=== PATIENT | female | born 1965 | race Caucasian/White ===

== ENCOUNTER 2016-08-22 08:56 | Inpatient (IN) | payer MEDICAID ==
[~2016-08-22 08:56] MED LIST: cefOXitin 2 GM Vial ONE
[2016-08-22] MEDS ORDERED: Scopolamine 1.5 MG Transdermal Patch TOP ONE (09:15)
[2016-08-22] MEDS ORDERED: Gabapentin 300 MG Cap PO ONE (09:15)
[2016-08-22] MEDS: fentaNYL 25 MCG/HR Transdermal Patch TRDERM SCH ×2 (09:24→09:26)
[2016-08-22] MEDS ORDERED: Naloxone 0.4 MG/ML SDV IV PRN (10:26)
[2016-08-22] MEDS: HYDROmorphone/Normal Saline 15 MG/30 ML PCA IV PRN (10:29)
[2016-08-22] MEDS: Dextrose 5%-Lactated Ringers 1,000 ML IV SCH (10:35)
[2016-08-22] MEDS ORDERED: Rocuronium 50 MG/5 ML Vial ONE ×2 (10:40→13:29)
[2016-08-22] MEDS ORDERED: Ondansetron 4 MG/2 ML SDV ONE (10:40)
[2016-08-22] MEDS ORDERED: Dexamethasone 4 MG/ML SDV ONE (10:40)
[2016-08-22] MEDS ORDERED: fentaNYL 250 MCG/5 ML SDV ONE ×2 (10:40→15:55)
[2016-08-22] MEDS ORDERED: Neostigmine Methylsulfate 1 MG/ML 5 ML Syringe ONE (10:40)
[2016-08-22] MEDS ORDERED: Propofol 200 MG/20 ML SDV ONE (10:40)
[2016-08-22] MEDS ORDERED: Ketamine 500 MG/5 ML MDV IV ONE (10:45)
[2016-08-22] MEDS ORDERED: cefOXitin 2 GM in Sodium Chloride 0.9% 50 ML IV ONE (11:00)
[2016-08-22] MEDS ORDERED: Albuterol/Ipratropium 3.0-0.5 MG/3 ML Neb Soln NEB ONE (11:00)
[2016-08-22] MEDS ORDERED: cefOXitin 1 GM Vial IRR ONE (11:15)
[2016-08-22] MEDS ORDERED: Lactated Ringers 1,000 ML ONE ×2 (13:19→15:30)
[2016-08-22] MEDS ORDERED: cefOXitin 1 GM Vial ONE (15:04)
[2016-08-22] MEDS ORDERED: cefOXitin 2 GM Vial ONE (15:06)
[2016-08-22] MEDS ORDERED: Sodium Chloride 0.9% 10 ML ONE (16:34)
[2016-08-22] MEDS ORDERED: Meropenem 500 MG SDV ONE (16:34)
[2016-08-22] MEDS ORDERED: fentaNYL 100 MCG/2 ML SDV ONE (17:16)
[2016-08-22] MEDS ORDERED: Ondansetron 4 MG/2 ML SDV IV PRN (19:51)
[2016-08-22] MEDS ORDERED: Albuterol/Ipratropium 3.0-0.5 MG/3 ML Neb Soln INH PRN (19:54)
[2016-08-22] MEDS: cefOXitin 2 GM in Sodium Chloride 0.9% 50 ML IV SCH (21:06)
[2016-08-22] MEDS: Pantoprazole 40 MG Vial IV SCH (21:07)
[2016-08-22] MEDS: Albuterol/Ipratropium 3.0-0.5 MG/3 ML Neb Soln INH SCH (21:07)
[2016-08-22] MEDS ORDERED: hydrOXYzine HCl 50 MG/ML SDV IM ONE (21:20)
[2016-08-22] MEDS: Acetaminophen 1,000 MG in Premix Bag 1 BAG IV SCH (21:32)
[2016-08-22] MEDS: Lactated Ringers 500 ML IV SCH (21:54)
[2016-08-23] MEDS: Dextrose 5%-Lactated Ringers 1,000 ML IV SCH ×3 (01:22→15:45)
[2016-08-23] MEDS: Lactated Ringers 500 ML IV SCH (01:23)
[2016-08-23] MEDS ORDERED: Lactated Ringers 500 ML IV SCH (01:30)
[2016-08-23] MEDS: cefOXitin 2 GM in Sodium Chloride 0.9% 50 ML IV SCH ×4 (02:34→20:00)
[2016-08-23] MEDS: Acetaminophen 1,000 MG in Premix Bag 1 BAG IV SCH ×3 (03:44→15:54)
[2016-08-23] MEDS: HYDROmorphone/Normal Saline 15 MG/30 ML PCA IV PRN ×2 (05:39→16:21)
[2016-08-23] MEDS: Albuterol/Ipratropium 3.0-0.5 MG/3 ML Neb Soln INH SCH ×4 (07:24→21:19)
[2016-08-23] MEDS: Formoterol/Mometasone 200-5 MCG 8.8 GM Inhaler IH SCH ×3 (08:17→21:19)
[2016-08-23] MEDS: Tiotropium Inhaler 18 MCG Inhalation Powder Cap Kit of 5 INH SCH (08:34)
[2016-08-23] MEDS: Metoprolol Tartrate 5 MG/5 ML SDV IV SCH ×3 (10:42→21:24)
[2016-08-23] MEDS ORDERED: Meperidine PF 100 MG/ML Syringe IM ONE (15:00)
[2016-08-23] MEDS ORDERED: diphenhydrAMINE 50 MG/ML SDV IVPUSH ONE (15:03)
[2016-08-23] MEDS: Pantoprazole 40 MG Vial IV SCH (20:01)
[2016-08-23] MEDS ORDERED: Lactated Ringers 500 ML IV ONE (20:30)
[2016-08-23] MEDS: VERIFY FENTANYL PATCH TOP SCH (21:18)
[2016-08-24] MEDS: cefOXitin 2 GM in Sodium Chloride 0.9% 50 ML IV SCH ×4 (02:13→20:55)
[2016-08-24] MEDS ORDERED: Lactated Ringers 500 ML IV SCH (02:30)
[2016-08-24] MEDS: Metoprolol Tartrate 5 MG/5 ML SDV IV SCH ×5 (03:39→22:46)
[2016-08-24] MEDS: Dextrose 5%-Lactated Ringers 1,000 ML IV SCH ×2 (04:04→18:02)
[2016-08-24] MEDS ORDERED: Meropenem 500 MG SDV ONE (05:36)
[2016-08-24] MEDS ORDERED: Bupivacaine 0.5% 50 ML MDV ONE (05:37)
[2016-08-24] MEDS ORDERED: Lidocaine 1% with EPINEPHrine 1:100,000 50 ML MDV ONE (05:37)
[2016-08-24] MEDS: HYDROmorphone/Normal Saline 15 MG/30 ML PCA IV PRN ×2 (07:13→16:46)
[2016-08-24] MEDS ORDERED: fentaNYL 100 MCG/2 ML SDV ONE (07:17)
[2016-08-24] MEDS ORDERED: Propofol 200 MG/20 ML SDV ONE (07:17)
[2016-08-24] MEDS ORDERED: Midazolam 1 MG/ML 2 ML SDV ONE (07:17)
[2016-08-24] MEDS: Formoterol/Mometasone 200-5 MCG 8.8 GM Inhaler IH SCH ×2 (09:36→20:54)
[2016-08-24] MEDS: Albuterol/Ipratropium 3.0-0.5 MG/3 ML Neb Soln INH SCH ×4 (09:36→20:56)
[2016-08-24] MEDS: Tiotropium Inhaler 18 MCG Inhalation Powder Cap Kit of 5 INH SCH (10:15)
[2016-08-24] MEDS: VERIFY FENTANYL PATCH TOP SCH ×2 (10:25→20:57)
[2016-08-24] MEDS: fentaNYL 50 MCG/HR Transdermal Patch TRDERM SCH (10:25)
[2016-08-24] MEDS: 1: AA 5%/Calcium/D15W/Lytes 1,000 ML with MVI, Adult with Vitamin K 10 ML, Chromium/Copp IV SCH ×6 (11:18→21:15)
[2016-08-24] MEDS ORDERED: Lactated Ringers 500 ML IV ONE (11:45)
[2016-08-24] MEDS: Pantoprazole 40 MG Vial IV SCH (20:50)
[2016-08-25] MEDS: cefOXitin 2 GM in Sodium Chloride 0.9% 50 ML IV SCH ×4 (02:05→19:55)
[2016-08-25] MEDS: Metoprolol Tartrate 5 MG/5 ML SDV IV SCH ×4 (03:34→22:42)
[2016-08-25] MEDS: 1: AA 5%/Calcium/D15W/Lytes 1,000 ML with MVI, Adult with Vitamin K 10 ML, Chromium/Copp IV SCH ×6 (07:26→17:55)
[2016-08-25] MEDS: Albuterol/Ipratropium 3.0-0.5 MG/3 ML Neb Soln INH SCH ×4 (07:38→21:11)
[2016-08-25] MEDS: Formoterol/Mometasone 200-5 MCG 8.8 GM Inhaler IH SCH ×2 (07:38→21:10)
[2016-08-25] MEDS: HYDROmorphone/Normal Saline 15 MG/30 ML PCA IV PRN ×2 (07:48→21:19)
[2016-08-25] MEDS ORDERED: fentaNYL 25 MCG/HR Transdermal Patch TRDERM SCH (09:00)
[2016-08-25] MEDS: Albumin 25% 12.5 GM in Premix Bag 1 BAG IV SCH ×4 (09:46→15:52)
[2016-08-25] MEDS: Potassium Phosphates 20 MMOLE in Sodium Chloride 0.9% 100 ML IV SCH ×3 (09:50→15:50)
[2016-08-25] MEDS: Tiotropium Inhaler 18 MCG Inhalation Powder Cap Kit of 5 INH SCH (09:52)
[2016-08-25] MEDS: VERIFY FENTANYL PATCH TOP SCH ×2 (09:58→21:11)
[2016-08-25] MEDS: Scopolamine 1.5 MG Transdermal Patch TOP SCH (10:03)
[2016-08-25] MEDS: Pantoprazole 40 MG Vial IV SCH (19:52)
[2016-08-26] MEDS: cefOXitin 2 GM in Sodium Chloride 0.9% 50 ML IV SCH ×4 (02:40→20:24)
[2016-08-26] MEDS: Metoprolol Tartrate 5 MG/5 ML SDV IV SCH ×4 (03:38→22:05)
[2016-08-26] MEDS: 1: AA 5%/Calcium/D15W/Lytes 1,000 ML with MVI, Adult with Vitamin K 10 ML, Chromium/Copp IV SCH ×6 (03:55→13:39)
[2016-08-26] MEDS: Albuterol/Ipratropium 3.0-0.5 MG/3 ML Neb Soln INH SCH ×4 (07:21→22:07)
[2016-08-26] MEDS: Formoterol/Mometasone 200-5 MCG 8.8 GM Inhaler IH SCH ×2 (07:22→22:07)
[2016-08-26] MEDS ORDERED: Iohexol 647 MG/ML 50 ML SDV PO PRN (07:27)
[2016-08-26] MEDS: Tiotropium Inhaler 18 MCG Inhalation Powder Cap Kit of 5 INH SCH (09:21)
[2016-08-26] MEDS: Albumin 25% 12.5 GM in Premix Bag 1 BAG IV SCH ×4 (09:25→16:26)
[2016-08-26] MEDS: VERIFY FENTANYL PATCH TOP SCH ×2 (09:26→22:03)
[2016-08-26] MEDS: VERIFY SCOPOLAMINE PATCH TOP SCH (09:27)
--- NOTE | 2016-08-26 09:48 | CR ---
UGI wo KUB HISTORY: Recent gastric bypass with partial gastrectomy and large Bezor in the stomach COMPARISON: CT scan 05/19/2016 FINDINGS: Upper GI demonstrates gastrojejunostomy anastomosis to be patent. No extravasation of cont rast. Slight esophageal dysmotility. Slight narrowing of the distal esophagus patient has had prior Kathe fundoplication.
--- NOTE | 2016-08-26 10:38 | PN ---
DATE OF SERVICE: 08/23/2016 The patient has been afebrile with stable vital signs, initially had relatively poor pain control, that appears to be satisfactory now. She is up in the chair, upright and conversant. The G-tube output was recorded as 0. We will need to probably flush that to have it not be plugged by the solid food that remains in there. Otherwise, her hemoglobin was 8.1 this morning, and we will give her 2 units of packed RBCs, as she is going to be having quite a bit in the way of blood draws and such. This will also decrease the amount of IV fluid we will need to give her. Magnesium is somewhat low as well, and that will be supplemented. Her other labs look quite good with the bilirubin and amylase being normal and AST only slightly elevated. The patient does have a bile leak in drains #1 and #2, and this would not be unexpected. The stent within the bile duct going through the jejunostomy is putting out some pure bile, so that anastomosis clearly is in a global sense intact. The other drain is serosanguineous at this point. The plan at this point will be to give her 2 units of packed RBCs today. We will begin some magnesium supplementation. We will plan to proceed with a delayed primary closure of abdominal incision tomorrow, along with Grant catheter insertion. The G-tube right now is not putting much out, and we will have that flushed periodically. The patient is normally on Inderal LA 120 mg a day, and after discussion with pharmacy, we will replace that with Lopressor 2.5 mg IV q.6 hours while she is not going to be getting a GI tract absorption. Skinny Keyes MD /[id number]
[2016-08-26] MEDS: Potassium Phosphates 15 MMOLE in Sodium Chloride 0.9% 100 ML IV SCH ×2 (10:54→12:27)
[2016-08-26] MEDS: HYDROmorphone/Normal Saline 15 MG/30 ML PCA IV PRN (11:41)
[2016-08-26] MEDS: Dextrose 5%-Lactated Ringers 1,000 ML IV SCH ×2 (14:00→22:08)
[2016-08-26] MEDS: Pantoprazole 40 MG Vial IV SCH (20:26)
[2016-08-27] MEDS: 1: AA 5%/Calcium/D15W/Lytes 1,000 ML with MVI, Adult with Vitamin K 10 ML, Chromium/Copp IV SCH ×9 (00:05→22:37)
[2016-08-27] MEDS: HYDROmorphone/Normal Saline 15 MG/30 ML PCA IV PRN ×2 (01:21→15:47)
[2016-08-27] MEDS: cefOXitin 2 GM in Sodium Chloride 0.9% 50 ML IV SCH ×4 (01:22→20:41)
[2016-08-27] MEDS: Metoprolol Tartrate 5 MG/5 ML SDV IV SCH ×4 (03:55→22:38)
[2016-08-27] MEDS: Albuterol/Ipratropium 3.0-0.5 MG/3 ML Neb Soln INH SCH ×4 (07:18→20:41)
[2016-08-27] MEDS: Formoterol/Mometasone 200-5 MCG 8.8 GM Inhaler IH SCH ×2 (07:18→20:42)
--- NOTE | 2016-08-27 07:26 | PN ---
DATE OF SERVICE: 08/25/2016 The patient had T-max 100.0. Vital signs have otherwise been stable. Temperature probably has something to do with the inflammatory response from the extensive procedure, perhaps as well as pulmonary toilet issues. Otherwise, urine output has now come up satisfactorily, and her creatinine is down to 0.9, so we will discontinue the Dumont catheter given this; otherwise, continue the TPN. She is doing a somewhat repeating pattern on the labs with the potassium and phosphate being low, and we will give her 60 mEq of K-Phosphate. Otherwise, continue the present TPN. Her albumin is also now quite low at 1.5. We will begin albumin 50 grams daily for the next 4 days. We will obtain an upper GI x-ray with water-soluble contrast tomorrow morning to evaluate gastric emptying out of the gastrojejunostomy. If that is emptying satisfactorily, we could probably start some oral intake tomorrow as well. Skinny Keyes MD /[id number]
[2016-08-27] MEDS: Tiotropium Inhaler 18 MCG Inhalation Powder Cap Kit of 5 INH SCH (08:28)
--- NOTE | 2016-08-27 08:35 | PN ---
DATE OF SERVICE: 08/26/2016 The patient had a T-max of 100.3, and for the most part, temperature is running 99. Vital signs are otherwise stable, and she looks reasonably comfortable. The urine output has been quite high as she is probably entering somewhat of a diuretic phase. With that, her hemoglobin is around 8.8, which I think is primary fluid shifting. The TABITHA drains all look appropriate. We will spot check on the amylase level on TABITHA 3, although it does not look obviously like a pancreatic fistula at this point. Continue present TPN and give her some additional K-Phos today. We will type and cross tomorrow in case the hemoglobin does creep down and give her 1 unit of packed RBCs tomorrow, if the hemoglobin remains below 9. Otherwise, will do an upper GI x-ray this morning to determine the degree of gastric emptying. If the stomach is emptying reasonably well, we can probably begin clamping the tube and starting a full liquid diet. Skinny Keyes MD /[id number]
[2016-08-27] MEDS ORDERED: Potassium Chloride 40 MEQ in Premix Bag 1 BAG IV ONE (09:00)
[2016-08-27] MEDS: Albumin 25% 12.5 GM in Premix Bag 1 BAG IV SCH ×4 (09:28→18:18)
[2016-08-27] MEDS: VERIFY SCOPOLAMINE PATCH TOP SCH (10:03)
[2016-08-27] MEDS: VERIFY FENTANYL PATCH TOP SCH ×2 (10:03→20:43)
[2016-08-27] MEDS: fentaNYL 50 MCG/HR Transdermal Patch TRDERM SCH (10:11)
[2016-08-27] MEDS: Pantoprazole 40 MG Vial IV SCH (20:42)
[2016-08-28] MEDS: cefOXitin 2 GM in Sodium Chloride 0.9% 50 ML IV SCH ×4 (02:04→20:10)
[2016-08-28] MEDS: Metoprolol Tartrate 5 MG/5 ML SDV IV SCH ×4 (04:45→22:53)
[2016-08-28] MEDS: Albuterol/Ipratropium 3.0-0.5 MG/3 ML Neb Soln INH SCH ×4 (07:13→20:11)
[2016-08-28] MEDS: Formoterol/Mometasone 200-5 MCG 8.8 GM Inhaler IH SCH ×2 (07:15→20:10)
[2016-08-28] MEDS: HYDROmorphone/Normal Saline 15 MG/30 ML PCA IV PRN ×2 (07:29→17:17)
--- NOTE | 2016-08-28 08:08 | PN ---
DATE OF SERVICE: 08/27/2016 The patient's T-max of 99. Vital signs otherwise have been stable. Upper GI x-ray looked good yesterday with good emptying of the stomach. G-tube output is moderate at this point. Plan will be to begin some Ensure high protein orally today, along with continuation of full- liquid diet. We will clamp the G-tube for 3 hours and unclamp for 1 hour around the clock. I think, at this point, we can back down the TPN to 82 mL an hour. Her hemoglobin is 8.1 and will give her 1 unit of packed RBCs today. Her potassium is somewhat low and will give her some additional KCl IV as well. Recheck some labs, maximize activity, and work with pulmonary toilet. The TABITHA drains are as previously noted. Skinny Keyes MD /[id number]
[2016-08-28] MEDS: Tiotropium Inhaler 18 MCG Inhalation Powder Cap Kit of 5 INH SCH (09:02)
[2016-08-28] MEDS: Albumin 25% 12.5 GM in Premix Bag 1 BAG IV SCH ×4 (09:07→14:56)
[2016-08-28] MEDS: VERIFY FENTANYL PATCH TOP SCH ×2 (09:53→20:11)
[2016-08-28] MEDS: VERIFY SCOPOLAMINE PATCH TOP SCH (09:55)
[2016-08-28] MEDS: Scopolamine 1.5 MG Transdermal Patch TOP SCH (09:56)
[2016-08-28] MEDS: 1: AA 5%/Calcium/D15W/Lytes 1,000 ML with MVI, Adult with Vitamin K 10 ML, Chromium/Copp IV SCH ×3 (11:29)
[2016-08-28] MEDS: Dextrose 5%-Lactated Ringers 1,000 ML IV SCH (16:29)
[2016-08-28] MEDS: Pantoprazole 40 MG Vial IV SCH (20:10)
[2016-08-29] MEDS: 1: AA 5%/Calcium/D15W/Lytes 1,000 ML with MVI, Adult with Vitamin K 10 ML, Chromium/Copp IV SCH ×6 (00:35→13:38)
[2016-08-29] MEDS: cefOXitin 2 GM in Sodium Chloride 0.9% 50 ML IV SCH ×4 (01:17→21:03)
[2016-08-29] MEDS: HYDROmorphone/Normal Saline 15 MG/30 ML PCA IV PRN ×3 (04:41→23:31)
[2016-08-29] MEDS: Metoprolol Tartrate 5 MG/5 ML SDV IV SCH ×3 (04:46→17:24)
[2016-08-29] MEDS: Formoterol/Mometasone 200-5 MCG 8.8 GM Inhaler IH SCH ×2 (07:25→21:03)
[2016-08-29] MEDS: Albuterol/Ipratropium 3.0-0.5 MG/3 ML Neb Soln INH SCH ×4 (07:25→21:13)
[2016-08-29] MEDS: Tiotropium Inhaler 18 MCG Inhalation Powder Cap Kit of 5 INH SCH (08:47)
[2016-08-29] MEDS: VERIFY FENTANYL PATCH TOP SCH ×2 (10:07→21:04)
[2016-08-29] MEDS: VERIFY SCOPOLAMINE PATCH TOP SCH (10:07)
[2016-08-29] MEDS: hydrOXYzine HCl 50 MG/ML SDV IM PRN ×2 (15:25→21:13)
--- NOTE | 2016-08-29 15:26 | PN ---
DATE OF SERVICE: 08/28/2016 The patient's T-max is 100.0. Vital signs have otherwise been stable. Oral intake is around 450 mL of mostly water, and we will have her try ordering off of the full liquid diet menu to get a little bit more in the way of nutrition. Labs show hemoglobin up to 9.7, white count is 10.7. Billirubin is up a little bit at 1.3, as is alkaline phosphatase. We will need to make sure that there is adequate drainage through the biliary stent. This appears to still be happening. We will otherwise continue TPN and present pain management. Probably will try switching over to some oral pain medicine tomorrow. Skinny Keyes MD /[id number]
[2016-08-29] MEDS: Cyclobenzaprine 10 MG Tab PO PRN (16:31)
[2016-08-29] MEDS ORDERED: PROPRANOLOL 120 MG PO SCH (21:00)
[2016-08-29] MEDS: Pantoprazole 40 MG Vial IV SCH (21:03)
[2016-08-29] MEDS: Propranolol 60 MG Cap.ER PO SCH (21:04)
[2016-08-29] MEDS ORDERED: Sodium Chloride 0.9% 250 ML IV SCH (22:00)
[2016-08-29] MEDS: Piperacillin/Tazobactam 3.375 GM in Sodium Chloride 0.9% 50 ML IV SCH (22:36)
[2016-08-30] MEDS: cefOXitin 2 GM in Sodium Chloride 0.9% 50 ML IV SCH (01:08)
[2016-08-30] MEDS: Piperacillin/Tazobactam 3.375 GM in Sodium Chloride 0.9% 50 ML IV SCH (03:24)
[2016-08-30] MEDS: Cyclobenzaprine 10 MG Tab PO PRN ×2 (06:03→16:06)
[2016-08-30] MEDS: 1: AA 5%/Calcium/D15W/Lytes 1,000 ML with MVI, Adult with Vitamin K 10 ML, Chromium/Copp IV SCH ×6 (06:14→23:28)
[2016-08-30] MEDS: Albuterol/Ipratropium 3.0-0.5 MG/3 ML Neb Soln INH SCH ×4 (07:27→20:55)
[2016-08-30] MEDS: Formoterol/Mometasone 200-5 MCG 8.8 GM Inhaler IH SCH ×2 (07:27→20:55)
[2016-08-30] MEDS: VERIFY FENTANYL PATCH TOP SCH ×2 (08:32→20:56)
[2016-08-30] MEDS: VERIFY SCOPOLAMINE PATCH TOP SCH (08:33)
[2016-08-30] MEDS ORDERED: Acetaminophen 325 MG Tab PO PRN (09:08)
[2016-08-30] MEDS: Tiotropium Inhaler 18 MCG Inhalation Powder Cap Kit of 5 INH SCH (09:20)
[2016-08-30] MEDS: Piperacillin/Tazobactam/Dext 3.375 GM in Premix Bag 1 BAG IV SCH ×3 (09:26→21:06)
[2016-08-30] MEDS: Sodium Chloride 0.9% 1,000 ML IV SCH (09:26)
[2016-08-30] MEDS: fentaNYL 50 MCG/HR Transdermal Patch TRDERM SCH (11:26)
[2016-08-30] MEDS: HYDROmorphone/Normal Saline 15 MG/30 ML PCA IV PRN (15:06)
[2016-08-30] MEDS: Pantoprazole 40 MG Vial IV SCH (20:54)
[2016-08-30] MEDS: Propranolol 60 MG Cap.ER PO SCH (20:55)
[2016-08-31] MEDS: Piperacillin/Tazobactam/Dext 3.375 GM in Premix Bag 1 BAG IV SCH ×4 (04:02→22:03)
[2016-08-31] MEDS: ClonazePAM 0.5 MG Tab PO PRN (04:02)
[2016-08-31] MEDS: Cyclobenzaprine 10 MG Tab PO PRN ×2 (04:02→20:40)
[2016-08-31] MEDS: Albuterol/Ipratropium 3.0-0.5 MG/3 ML Neb Soln INH SCH ×4 (07:48→20:37)
[2016-08-31] MEDS: Formoterol/Mometasone 200-5 MCG 8.8 GM Inhaler IH SCH ×2 (07:48→20:38)
[2016-08-31] MEDS: Tiotropium Inhaler 18 MCG Inhalation Powder Cap Kit of 5 INH SCH (09:12)
[2016-08-31] MEDS: VERIFY FENTANYL PATCH TOP SCH ×2 (09:55→20:40)
[2016-08-31] MEDS: VERIFY SCOPOLAMINE PATCH TOP SCH (09:57)
[2016-08-31] MEDS: Acetaminophen/oxyCODONE 325-10 MG Tab PO PRN ×3 (09:58→20:40)
[2016-08-31] MEDS: Scopolamine 1.5 MG Transdermal Patch TOP SCH (10:26)
--- NOTE | 2016-08-31 12:42 | PN ---
DATE OF SERVICE: 08/29/2016 The patient has been afebrile with stable vital signs, somewhat eating at around 540 mL in. We will try a low-residue solid diet today, as it appears that her stomach is emptying fairly well. Back down on the TPN somewhat. Otherwise, check some labs once again tomorrow morning. Skinny Keyes MD /[id number]
--- NOTE | 2016-08-31 12:58 | PN ---
DATE OF SERVICE: 08/30/2016 The patient had T-max of 102, and she was cultured up with that. The patient looks fairly comfortable this morning and appear to have a fairly productive cough. I think the temperature probably is related to that. After cultures were obtained, we will start the patient on Zosyn, and we will await the cultures and fine tune the antibiotics as needed. Otherwise, the bilirubin is up to 1.8 within the TABITHA drain drainage and drainage through the biliary stent appeared to be remaining satisfactory. The bilirubin may be related to TPN with mL an hour. We will try to get her to take more oral intake today. We will discontinue the cefoxitin and continue to maximize activity and work with pulmonary toilet. Skinny Keyes MD /[id number]
[2016-08-31] MEDS: 1: AA 5%/Calcium/D15W/Lytes 1,000 ML with MVI, Adult with Vitamin K 10 ML, Chromium/Copp IV SCH ×3 (16:20)
[2016-08-31] MEDS: Pantoprazole 40 MG Vial IV SCH (20:37)
[2016-08-31] MEDS: Propranolol 60 MG Cap.ER PO SCH (20:38)
[2016-09-01] MEDS: Acetaminophen/oxyCODONE 325-10 MG Tab PO PRN ×5 (01:34→20:59)
[2016-09-01] MEDS: Sodium Chloride 0.9% 1,000 ML IV SCH (02:28)
[2016-09-01] MEDS: Piperacillin/Tazobactam/Dext 3.375 GM in Premix Bag 1 BAG IV SCH ×4 (03:06→21:03)
[2016-09-01] MEDS: Albuterol/Ipratropium 3.0-0.5 MG/3 ML Neb Soln INH SCH ×4 (07:21→21:01)
[2016-09-01] MEDS: Formoterol/Mometasone 200-5 MCG 8.8 GM Inhaler IH SCH ×2 (07:21→21:01)
[2016-09-01] MEDS: Tiotropium Inhaler 18 MCG Inhalation Powder Cap Kit of 5 INH SCH (08:02)
[2016-09-01] MEDS: VERIFY FENTANYL PATCH TOP SCH ×2 (09:58→21:02)
[2016-09-01] MEDS: VERIFY SCOPOLAMINE PATCH TOP SCH (09:59)
[2016-09-01] MEDS: Cyclobenzaprine 10 MG Tab PO PRN (20:59)
[2016-09-01] MEDS: Pantoprazole 40 MG Vial IV SCH (21:00)
[2016-09-01] MEDS: Propranolol 60 MG Cap.ER PO SCH (21:02)
[2016-09-02] MEDS: Acetaminophen/oxyCODONE 325-10 MG Tab PO PRN ×5 (01:29→19:56)
[2016-09-02] MEDS: Piperacillin/Tazobactam/Dext 3.375 GM in Premix Bag 1 BAG IV SCH ×4 (03:40→21:33)
[2016-09-02] MEDS: Albuterol/Ipratropium 3.0-0.5 MG/3 ML Neb Soln INH SCH ×4 (07:10→21:26)
[2016-09-02] MEDS: Formoterol/Mometasone 200-5 MCG 8.8 GM Inhaler IH SCH ×2 (07:13→21:27)
[2016-09-02] MEDS: Tiotropium Inhaler 18 MCG Inhalation Powder Cap Kit of 5 INH SCH (09:01)
[2016-09-02] MEDS: fentaNYL 50 MCG/HR Transdermal Patch TRDERM SCH (10:07)
[2016-09-02] MEDS: VERIFY FENTANYL PATCH TOP SCH ×2 (10:09→21:28)
[2016-09-02] MEDS: VERIFY SCOPOLAMINE PATCH TOP SCH (10:10)
--- NOTE | 2016-09-02 10:47 | CR ---
Two-view chest Comparison: June 2014. Findings: There is a left subclavian line in place. The tip descends down to the junction of the SVC and right atrium. There is focal density in the medial right lung base. The finding is consistent w ith atelectasis and/or infiltrate. The left lung is unremarkable. The heart and vascular structures are within normal limits. Impression: 1. Right basilar infiltrate and/or atelectasis. 2. Left central venous catheter.
--- NOTE | 2016-09-02 10:56 | PN ---
DATE OF SERVICE: 09/02/2016 SUBJECTIVE: Marah's vital signs have been stable. Her oral intake is 1140 mL. She states that she had so much pain prior to surgery that she is afraid to eat. TABITHA drains have put out 15, 15, and 370, respectively. Gastrostomy tube has been clamped. Bile duct drain have put out 125 of a darker colored drainage. She did have a bowel movement yesterday, 09/01/2016. OBJECTIVE: GENERAL: Marah is a 51-year-old female. She is alert and orientated. Color pale. VITAL SIGNS: TPR is 98, 70, 16, blood pressure 95/55. HEENT: Negative. NECK: Supple. HEART: Regular rate and rhythm. LUNGS: Clear. ABDOMEN: Dressings dry and intact. Abdominal binder is on. TABITHA drains, as stated above. EXTREMITIES: Without peripheral edema. ASSESSMENT: Laparoscopy turned to laparotomy with distal gastrectomy with Loc-en-Y gastrojejunostomy, debridement of segment of deserosalized pancreas, resection of portion with Loc-en-Y choledochojejunostomy and placement of gastrostomy tube on 08/22/2016. PLAN: 1. Dietary consult. 2. Calorie count 24 hours from 7 a.m. to 7 a.m. 3. Good pulmonary toilet encouraged. 4. We will evaluate p.r.n. or in a.m. Sharon Gamboa PA-C /[id number]
--- NOTE | 2016-09-02 11:27 | PN ---
DATE OF SERVICE: 09/01/2016 The patient has been now afebrile with stable vital signs. Oral intake has been fair, but still not much beyond water. Will have Dietary seeing the patient daily. TPN is off at this point and will need better oral intake in terms of quality. Her bilirubin is down to 1.0 today, and the cultures on the sputum show an Enterobacter, which is sensitive to Zosyn that she is on. Continue to maximize activity, work with pulmonary toilet, and recheck some labs in the morning. Skinny Keyes MD /[id number]
--- NOTE | 2016-09-02 12:00 | OR ---
DATE OF PROCEDURE: 08/24/2016 PREOPERATIVE DIAGNOSES: 1. Open abdominal incision. 2. Indications for central venous access. OPERATIVE PROCEDURE: 1. Delayed primary closure of abdominal incision. 2. Placement of double-lumen Grant catheter via left subclavian vein approach (52771). ANESTHESIA: Local plus IV sedation. INDICATION FOR PROCEDURE: The patient is status post very complex gastric and biliary procedure done 48 hours ago. At that time, the patient was felt to be at high risk for wound infection and primary closure was undertaken. Therefore, we had the wound pack opened with a planned delayed primary closure to be undertaken today. Additionally, the patient will likely need to have some TPN for the ensuing several days or possibly weeks, and given this, a double-lumen Grant catheter will be placed. Potential risks of the procedure including bleeding, infection, injury to the vasculature or lung during the catheter replacement were reviewed, and the patient wishes to proceed. DETAILS OF PROCEDURE: The patient was taken to the operating room and placed in a supine position. After IV sedation was administered, the upper chest and neck areas were prepped and draped. The left subclavian area was then anesthetized with 1% lidocaine, mixed with Marcaine, and the left subclavian vein cannulated. A guidewire was passed and manipulated into the superior vena cava. Some additional local was then injected for a length of roughly 4 fingerbreadths below the original puncture site. A stab wound was then placed at that level and a Grant catheter tunneled between the two puncture sites and then cut such that the tip would lie in the area of the superior vena cava/right atrial junction. Over the introducer and peel-away catheter, the Grant catheter was then placed without difficulty. Good in and outflow was noted. Ports were flushed with heparinized saline. The original puncture site incision was closed with a 4-0 Vicryl subcuticular stitch and the catheter sutured to the skin with the cuff having been pulled just inside the skin and thereby affixed with some 3-0 nylon stitch. Dressing was then applied, and port once again flushed with heparinized saline. Attention was then taken to the open abdominal incision. Previous incision was opened up with removal of the dressing. The incision was inspected and found to be clean. The incision was prepped and draped, anesthetized with 1% lidocaine mixed with Marcaine, and irrigated with meropenem-containing saline solution. A 10-Persian round Yang-Jackson drain was placed near the inferior aspect of the incision, and the incision was then closed with 2 layers of 3-0 and 4-0 Vicryl stitch deep and lane for the skin. The drain was affixed with some 3-0 Vicryl stitch, and the patient was taken to the recovery room in satisfactory condition. There were no evident complications. Skinny Keyes MD /[id number]
[2016-09-02] MEDS: Sodium Chloride 0.9% 10 ML Syringe IV PRN (16:48)
[2016-09-02] MEDS: ClonazePAM 0.5 MG Tab PO PRN (19:56)
[2016-09-02] MEDS: Cyclobenzaprine 10 MG Tab PO PRN (19:56)
[2016-09-02] MEDS: Propranolol 60 MG Cap.ER PO SCH (21:29)
[2016-09-02] MEDS: Pantoprazole 40 MG Tab.CR PO SCH (21:29)
[2016-09-03] MEDS: Acetaminophen/oxyCODONE 325-10 MG Tab PO PRN ×4 (01:51→20:33)
[2016-09-03] MEDS: Piperacillin/Tazobactam/Dext 3.375 GM in Premix Bag 1 BAG IV SCH ×4 (04:28→21:24)
[2016-09-03] MEDS: Albuterol/Ipratropium 3.0-0.5 MG/3 ML Neb Soln INH SCH ×4 (07:12→20:35)
[2016-09-03] MEDS: Formoterol/Mometasone 200-5 MCG 8.8 GM Inhaler IH SCH ×2 (07:13→20:38)
[2016-09-03] MEDS: Scopolamine 1.5 MG Transdermal Patch TOP SCH (08:36)
[2016-09-03] MEDS: VERIFY SCOPOLAMINE PATCH TOP SCH (08:40)
[2016-09-03] MEDS: VERIFY FENTANYL PATCH TOP SCH ×2 (08:41→20:47)
[2016-09-03] MEDS: Tiotropium Inhaler 18 MCG Inhalation Powder Cap Kit of 5 INH SCH (09:07)
[2016-09-03] MEDS: 1: AA 5%/Calcium/D15W/Lytes 1,000 ML with MVI, Adult with Vitamin K 10 ML, Chromium/Copp IV SCH ×3 (10:56)
[2016-09-03] MEDS: Dronabinol 2.5 MG Cap PO SCH ×2 (10:56→20:41)
[2016-09-03] MEDS: Fat Emulsion 100 ML IV SCH (15:38)
[2016-09-03] MEDS: Cyclobenzaprine 10 MG Tab PO PRN ×2 (16:00→22:40)
[2016-09-03] MEDS: ClonazePAM 0.5 MG Tab PO PRN (20:34)
[2016-09-03] MEDS: Propranolol 60 MG Cap.ER PO SCH (20:38)
[2016-09-03] MEDS: Pantoprazole 40 MG Tab.CR PO SCH (20:47)
[2016-09-04] MEDS: Acetaminophen/oxyCODONE 325-10 MG Tab PO PRN ×3 (01:59→19:40)
[2016-09-04] MEDS: Piperacillin/Tazobactam/Dext 3.375 GM in Premix Bag 1 BAG IV SCH ×4 (04:18→21:43)
[2016-09-04] MEDS: 1: AA 5%/Calcium/D15W/Lytes 1,000 ML with MVI, Adult with Vitamin K 10 ML, Chromium/Copp IV SCH ×3 (04:19)
[2016-09-04] MEDS: Albuterol/Ipratropium 3.0-0.5 MG/3 ML Neb Soln INH SCH ×4 (07:21→21:47)
[2016-09-04] MEDS: Formoterol/Mometasone 200-5 MCG 8.8 GM Inhaler IH SCH ×2 (07:21→21:47)
[2016-09-04] MEDS ORDERED: Central Total Parenteral Nutrition Bag SCH (07:30)
[2016-09-04] MEDS: Tiotropium Inhaler 18 MCG Inhalation Powder Cap Kit of 5 INH SCH (08:00)
--- NOTE | 2016-09-04 08:29 | OR ---
DATE OF PROCEDURE: 08/22/2016 PREOPERATIVE DIAGNOSIS: High-grade partial gastric outlet obstruction secondary to non- dilatable duodenal ulcer. POSTOPERATIVE DIAGNOSIS: 1. High-grade partial gastric outlet obstruction associated with:. a. Striking gastric distention with both solids and liquids. b. 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 OPERATIVE PROCEDURE: 1. Diagnostic laparoscopy converted to laparotomy with:. a. Distal gastrectomy with Loc-en-Y gastrojejunostomy (03603). b. Debridement of portion of the devitalized pancreas (51958). c. Resection of portion of common bile duct with Loc-en-Y choledochojejunostomy (78298). d. Placement of tube gastrostomy (97843). ANESTHESIA: General. INDICATION FOR PROCEDURE: This is a 51-year-old who for several months has been just being on more or less a liquid diet. She has been worked up by mainly Gastroenterology. An attempt had been made at dilating the duodenal ulcer which was unsuccessful. At this point, she presents with planned distal gastrectomy with Loc-en-Y reconstruction to alleviate the gastric outlet obstruction. Potential risks of the procedure including bleeding, infection, injury to the structures in the vicinity of the ulcer including pancreas and biliary structures, possible leaks from various GI tract closures, as well as possibility of cardiopulmonary, septic, or hemorrhagic complications leading to were discussed, and the patient wishes to proceed. DETAILS OF PROCEDURE: The patient was taken to the operating room. After general endotracheal anesthesia was induced, the patient was placed in a lithotomy position and the abdomen was prepped and draped. A nasogastric tube had been placed, but this had very little output as it became evidently quite plugged with semisolid material soon after insertion. A 20 cm inferior and 5 cm left of the xiphoid process, a transverse incision was made. The peritoneal cavity entered under direct vision with an Optiview trocar. Following this, the peritoneal cavity was inflated to 15 mmHg pressure with CO2, and the laparoscope reinserted. No underlying trocar insertion site injuries were seen. Following this, 5 additional trocars were placed across the upper and mid abdomen, and general exploration was undertaken. As somewhat expected, the patient was noted to have a strikingly dilated stomach. This came down in a U-shaped type configuration, almost to a point somewhat below the umbilicus before curving back up toward the duodenum. At this point, the greater omentum was divided from the junction of the right and left gastroepiploic vessels down toward the pyloric sphincter and duodenum with Harmonic scalpel. Similarly, then the lesser omental structures were then divided from the point fairly high up on the lesser curvature, a few centimeters below the esophagogastric junction. Care was taken to maintain a plane of dissection here, directly along the side of the stomach to maintain the left gastric vasculature to the upper portion of the stomach that would remain. This was then likewise taken down toward the pyloric sphincter. The stomach was then divided with LUIS FERNANDO black loads as it was quite thick and more or less connecting to the proximal ends of the lesser omental points of dissection, some of the other GI tissue behind the stomach was then taken down with Harmonic scalpel. As one approached the area of the proximal duodenum, it became evident that there was a florid both acute and chronic inflammatory response in the area of the head of the pancreas, which made a laparoscopic approach from that point not felt to be safe. Given this, the trocars were removed, the peritoneal cavity was deflated, and an upper midline incision was made and carried down through the full-thickness of the abdominal wall. Attention was then taken to dissection into the area of the proximal duodenum. This had evidently been involved in a longstanding posterior penetration of the ulcer into the head of the pancreas resulting in a dense inflammatory response all around that area. As one dissected free, the pancreas was densely adherent and some of this was devitalized as the wound further dissected the doing away from the plane was attempted to be maintained along the posterior aspect of the duodenum. Additional pancreatic tissue was densely adherent and came up with the dissection, and at that point, it was also noted that the common bile duct in the immediate supraduodenal location had been caught up in the inflammatory response and was divided roughly 80% of its diameter. At that point, the decision was then made to complete that transection and reconstruct the biliary tract with the Loc-en-Y choledochojejunostomy. The remainder of the duodenal ulcer was then peeled off the pancreas. There was some remaining devitalized pancreatic tissue which was then excised. It was clear, however, that the plane of dissection did not involve the main pancreatic duct. Beyond the first portion of the duodenum, it became relatively soft and the duodenum was then divided there with a LUIS FERNANDO black load as well and the specimen delivered from the field. At this point, the ligament of Treitz was identified and the small bowel taken down 20 cm distal to that point where it was initially divided, and then initially a 70 cm Loc limb was then constructed for the jejunostomy, and then a separate 70 cm Loc-en-Y limb constructed for the gastrojejunostomy. Both of these were implanted into the small bowel in the range of roughly 20 cm distal to the ligament of Treitz. All of this was done with stapled anastomoses using standard technique. The Loc limb of the small bowel to be used for the choledochojejunostomy was then brought out through an antecolic position. This seemed to be really the most satisfactory in terms of bringing out the cutaneous stent through the choledochojejunostomy via the Loc limb. At this point, a 10-Albanian round Yang-Jackson drain was used to provide the stent for the choledochojejunostomy as the common bile duct was actually quite small in diameter. The common bile was debrided roughly 2 cm further approximately where it was most satisfactory in terms of appearance for the anastomosis. A Witzel jejunostomy was then accomplished in the Loc limb roughly 15 cm distal to the point where the choledochojejunostomy would be placed. A 10-Albanian round drain was then left in and then separately brought out through the end of the Loc limb for subsequent placement of the stent. The Witzel jejunostomy was initially then sutured to the substance of the bowel just as it exited the Witzel tunnel with a 3-0 chromic stitch, so that it would not slide out of position during the remainder of the case. Attention was then taken to the formation of the choledochojejunostomy. A small opening was made in the small bowel on its antimesenteric border, roughly 2 or 3 cm proximal to the divided end of the small bowel, and initially, the anterior row of sutures using 4-0 Vicryl stitch was placed in the common bile duct. Following this, then the posterior row of sutures beginning on the corners with 4-0 Vicryl was made between the common bile duct and the jejunum. Once these were in place and tied, the stent was then cut such that it would extend into the common bile duct, roughly about 4 cm and slid into the common bile duct at that level. Initially, we placed anterior long stitches to the common bile duct. We then were taken to the adjacent jejunum, all of the bites of the common bile duct and jejunum including the mucosal surfaces. Once this was completed, that anastomosis appeared to be satisfactory. Some additional sutures to the small bowel to the adjacent soft tissues were then also placed to help take any tension off the direct suture line of the choledochojejunostomy. The end of the small bowel as it exited the jejunum was then brought out through a stab wound along the right upper quadrant, anterior and lateral abdominal wall, and the small bowel was then attached to the abdominal wall with a series of 4 sutures placed around the exit site of the stent to the abdominal wall, thus fixing in position, and subsequently, this along with the Yang-Jackson drains was sutured at the skin level with a 3-0 Vicryl stitch. Attention was then taken to the gastrojejunostomy. The Loc limb for this was brought out through a retrocolic approach and came up easily through the divided end of the stomach. Along the posterior aspect of the stomach, a small opening was made and attempt was made to remove the large volume of semisolid material. This was old food with roughly a consistency of oatmeal with foul-smelling, obviously been present there for an extended period of time. Using the Jing tube and then subsequently a 40-Albanian chest tube, some of this was removed, but we were not able to get the vast majority of this out. It was felt that it was a satisfactory large enough opening for the anastomosis this would drain and would be a safer approach than trying to get all this material out, which would likely result in substantial additional contamination of the abdominal wall. The Loc limb was then brought up to the posterior opening and laid across in the right to left direction and 2 firings of the LUIS FERNANDO purple loads between the stomach and small bowel were then accomplished, and the corner of the common opening was then closed with a LUIS FERNANDO black load. The angles of anastomosis were then reinforced with 3-0 Vicryl seromuscular stitch. The remaining stomach was obviously quite distended and poorly functional and given this, a 20-Albanian Dumont catheter was brought through the abdominal wall in the left subcostal area and a gastrostomy tube, using a Wanda technique was used with a 3-0 Vicryl stitch. Once this was general in place it was sutured up against the abdominal wall with 3-0 Vicryl stitch as well. At this point, no further problems were noted intra-abdominally. The abdomen was irrigated with meropenem-containing saline solution. Three Yang-Jackson drains were then placed, 1 and 2 were then placed initially posterior to the choledochojejunostomy and from there into the dependent portion of the abdomen below that along the lower edge of the liver and the TABITHA #2 was then placed anterior to the choledochojejunostomy and then also across the area of the duodenal stump and Yang-Jackson #3 was then laid across the area of pancreatic debridement in the event that pancreatic fistula would develop at that location. The gastrojejunostomy, duodenal stump, pancreatic debridement, and choledochojejunostomy were then all reinforced with multiple syringes of fibrin sealant. At that point, no further problems were noted. The midline fascia was approximated with a #2 Vicryl stitch. All of the trocar sites had been placed obliquely through the musculature and that needed to be closed as a palpable good muscle covering the points where they entered the abdomen. The skin and subcutaneous tissue were felt to be at high risk for a wound infection if primary closure was undertaken. Given this, a delayed primary closure was planned in 48 hours, and the skin and subcutaneous tissue packed open with iodoform gauze. The drains and the stent for the choledochojejunostomy were all sutured to the skin with some 3-0 Vicryl stitch and the gastrostomy tube was sutured to the skin with 3-0 nylon stitch. The patient was taken to the recovery room in satisfactory condition. There were no evident complications. Skinny Keyes MD /[id number]
--- NOTE | 2016-09-04 09:03 | PN ---
DATE OF SERVICE: 09/04/2016 SUBJECTIVE: Marah's vital signs have been stable. She has been afebrile. Oral intake was 1180 and her TABITHA drains have put out 2, 2, 445 of a light green-tinged draining. Her gastrostomy tube is clamped, and the bile duct drain has put out 10. She has a decreased appetite, was started on Marinol yesterday. Pain has been an issue. TPN is running at 60 and she is getting lipids daily. Labs were reviewed. Hemoglobin 10.2. Alkaline phosphatase is elevated at 855. REVIEW OF SYSTEMS: Remainder of review of systems negative for any pertinent positives and negatives. OBJECTIVE: GENERAL: Marah is a 51-year-old female. She is sitting up in the chair. Alert, orientated, color pale. SKIN: Warm and dry. VITAL SIGNS: TPR 97.3, 77, 16. Blood pressure 90/54. HEENT: Negative. NECK: Supple. HEART: Regular rate and rhythm. LUNGS: Clear. ABDOMEN: Incisions look good. Drains were examined. Gastrostomy tube in place. She has had the abdominal binders on. EXTREMITIES: Without peripheral edema. ASSESSMENT: Laparoscopic turned to laparotomy with distal gastrectomy with Loc-en-Y gastrojejunostomy, debridement of segment of deserosalized pancreas, resection of portion of Loc-en-Y, choledochojejunostomy and placement of gastrostomy tube on 08/22/2016. PLAN: 1. Increase Marinol to 5 mg b.i.d. 2. Continue same TPN, rate, and content. 3. Continue lipids. 4. Discontinue Flexeril. 5. Check CBC, CMP, Mag, phos in a.m. 6. Good pulmonary toilet encouraged. 7. Continue to encourage oral intake. 8. We will evaluate p.r.n. or in a.m. Sharon Gamboa PA-C /[id number]
[2016-09-04] MEDS: Dronabinol 2.5 MG Cap PO SCH ×2 (09:31→21:48)
[2016-09-04] MEDS: VERIFY FENTANYL PATCH TOP SCH ×2 (09:32→21:49)
[2016-09-04] MEDS: VERIFY SCOPOLAMINE PATCH TOP SCH (09:33)
[2016-09-04] MEDS: Fat Emulsion 100 ML IV SCH (16:31)
--- NOTE | 2016-09-04 18:32 | PN ---
DATE OF SERVICE: 09/03/2016 The patient has been afebrile with stable vital signs. Oral intake remains fairly poor in terms of her calories and we will restart Marinol and have her take frequent small meals. If she is able to pickup adequate nutrition over the next day or two, we can try some nighttime tube feedings as well. Skinny Keyes MD /[id number]
[2016-09-04] MEDS ORDERED: 1: AA 5%/Calcium/D15W/Lytes 1,000 ML with MVI, Adult with Vitamin K 10 ML, Chromium/Copp IV SCH ×3 (21:00)
[2016-09-04] MEDS: Propranolol 60 MG Cap.ER PO SCH (21:47)
[2016-09-04] MEDS: Pantoprazole 40 MG Tab.CR PO SCH (21:50)
[2016-09-05] MEDS: Acetaminophen/oxyCODONE 325-10 MG Tab PO PRN ×6 (00:06→22:51)
[2016-09-05] MEDS: Piperacillin/Tazobactam/Dext 3.375 GM in Premix Bag 1 BAG IV SCH ×4 (03:30→22:31)
[2016-09-05] MEDS ORDERED: Calcium Carbonate 500 MG Tab.Chew PO PRN (04:13)
[2016-09-05] MEDS: Albuterol/Ipratropium 3.0-0.5 MG/3 ML Neb Soln INH SCH ×4 (07:13→20:29)
[2016-09-05] MEDS: Formoterol/Mometasone 200-5 MCG 8.8 GM Inhaler IH SCH ×2 (07:14→20:23)
[2016-09-05] MEDS ORDERED: Central Total Parenteral Nutrition Bag SCH (07:30)
[2016-09-05] MEDS: Tiotropium Inhaler 18 MCG Inhalation Powder Cap Kit of 5 INH SCH (08:43)
[2016-09-05] MEDS ORDERED: Potassium Chloride 20 MEQ in Premix Bag 1 BAG IV ONE (09:00)
[2016-09-05] MEDS: VERIFY SCOPOLAMINE PATCH TOP SCH (09:01)
[2016-09-05] MEDS: VERIFY FENTANYL PATCH TOP SCH ×2 (09:01→20:25)
[2016-09-05] MEDS: Dronabinol 2.5 MG Cap PO SCH ×2 (09:09→20:29)
[2016-09-05] MEDS: fentaNYL 50 MCG/HR Transdermal Patch TRDERM SCH (09:09)
--- NOTE | 2016-09-05 10:06 | PN ---
DATE OF SERVICE: 09/05/2016 SUBJECTIVE: Marah is reporting pain on the pain scale of 1 to 10 at 5 to 9. Oral intake was 1790. Her TABITHA drain 1 and 2 put out 2 mL each. TABITHA 3 put out 445. TABITHA 4 which is a bio drainage bag put out 10. Her oral intake has increased to 1790 yesterday. She has had no other questions or concerns. OBJECTIVE: GENERAL: Marah is a 51-year-old female. She is alert and orientated. Color pale. She looks like she is feeling better today. VITAL SIGNS: TPR is 97, 65, 18. Blood pressure is 96/63. HEENT: Negative. NECK: Supple. HEART: Regular rate and rhythm. LUNGS: Clear. ABDOMEN: Incisions look good. TABITHA drains noted as above. EXTREMITIES: Without peripheral edema. ASSESSMENT: Laparoscopic turned to laparotomy with distal gastrectomy with Loc-en-Y gastrojejunostomy, debridement of segment of deserosalized pancreas, resection of portion of the Loc-en-Y, choledochojejunostomy, and placement of gastrostomy tube on 08/22/2016. PLAN: 1. Decrease TPN and lipids to 40 mL/h. Use same content. 2. Have sutures and lidocaine at bedside for placement of suture to keep the bile TABITHA drain intact and this should be at bedside for Skinny Keyes MD, on Friday09/06/2016. 3. Potassium chloride 20 mEq IV one time today. 4. Check CBC, CMP, Mag, phos in a.m. 5. Good pulmonary toilet encouraged. 6. We will evaluate p.r.n. or in a.m. Sharon Gamboa PA-C /[id number]
[2016-09-05] MEDS: Fat Emulsion 100 ML IV SCH (16:19)
[2016-09-05] MEDS: 1: AA 5%/Calcium/D15W/Lytes 1,000 ML with MVI, Adult with Vitamin K 10 ML, Chromium/Copp IV SCH ×3 (17:00)
[2016-09-05] MEDS: Pantoprazole 40 MG Tab.CR PO SCH (20:24)
[2016-09-05] MEDS: Propranolol 60 MG Cap.ER PO SCH (20:24)
[2016-09-06] MEDS: Acetaminophen/oxyCODONE 325-10 MG Tab PO PRN ×5 (03:48→22:04)
[2016-09-06] MEDS: Piperacillin/Tazobactam/Dext 3.375 GM in Premix Bag 1 BAG IV SCH ×2 (03:48→09:11)
[2016-09-06] MEDS ORDERED: Lidocaine 1% 50 ML MDV INJECT ONE (06:30)
[2016-09-06] MEDS: Albuterol/Ipratropium 3.0-0.5 MG/3 ML Neb Soln INH SCH ×4 (07:24→20:38)
[2016-09-06] MEDS: Formoterol/Mometasone 200-5 MCG 8.8 GM Inhaler IH SCH ×2 (07:25→20:37)
[2016-09-06] MEDS ORDERED: Central Total Parenteral Nutrition Bag SCH (07:30)
--- NOTE | 2016-09-06 08:08 | PN ---
DATE OF SERVICE: 09/06/2016 SUBJECTIVE: Marah is a 51-year-old female. She did have 1790 mL oral intake and then she did eat 75% of an Activia yogurt. She is feeling like she is getting her taste back and is going to try some string cheese and some other things off the menu today. Her Yang- Ayan have put out 0, 0, 450, and the bile duct drain put out 30 mL. The bile duct drain was sutured in, Skinny Kyees MD today. Pain on the pain scale 1-10 is a 4/10. Temp max 99. TPN is running without difficulty. Labs were reviewed. REVIEW OF SYSTEMS: Remainder of review of systems negative for any pertinent positives and negatives. OBJECTIVE: GENERAL: Marah Mcgrath is a 51-year-old female. VITAL SIGNS: TPR is 99, 80, 16. Blood pressure 103/68. HEENT: Negative. NECK: Supple. HEART: Regular rate and rhythm. LUNGS: Clear. ABDOMEN: TABITHA drains intact. The bile drain was sutured in as stated above. Incisions are healing well. Skin around the TABITHA drains look good. She has been having her abdominal binder on. EXTREMITIES: Without peripheral edema. ASSESSMENT: Laparoscopic turned to laparotomy with distal gastrectomy with Loc-en-Y gastrojejunostomy, debridement of segment of deserosalized pancreas, resection of portion of the Loc-en-Y, choledochojejunostomy, and placement of gastrostomy tube on 08/22/2016. PLAN: 1. Continue same TPN rate and contents with lipids. 2. Dietary consult in regard to increasing protein and calories. 3. Check CBC, CMP, Mag, phos in a.m. 4. We will evaluate p.r.n. or in a.m. Sharon Gamboa PA-C /[id number]
[2016-09-06] MEDS: VERIFY SCOPOLAMINE PATCH TOP SCH (08:45)
[2016-09-06] MEDS: VERIFY FENTANYL PATCH TOP SCH ×2 (08:45→20:38)
[2016-09-06] MEDS: Scopolamine 1.5 MG Transdermal Patch TOP SCH (09:11)
[2016-09-06] MEDS: Dronabinol 2.5 MG Cap PO SCH ×2 (09:11→20:38)
[2016-09-06] MEDS: Tiotropium Inhaler 18 MCG Inhalation Powder Cap Kit of 5 INH SCH (09:12)
[2016-09-06] MEDS: Fat Emulsion 100 ML IV SCH (17:25)
[2016-09-06] MEDS: 1: AA 5%/Calcium/D15W/Lytes 1,000 ML with MVI, Adult with Vitamin K 10 ML, Chromium/Copp IV SCH ×3 (17:25)
[2016-09-06] MEDS: Propranolol 60 MG Cap.ER PO SCH (20:38)
[2016-09-06] MEDS: Pantoprazole 40 MG Tab.CR PO SCH (20:38)
[2016-09-07] MEDS: Acetaminophen/oxyCODONE 325-10 MG Tab PO PRN ×5 (03:26→21:51)
[2016-09-07] MEDS: Formoterol/Mometasone 200-5 MCG 8.8 GM Inhaler IH SCH ×2 (07:29→21:50)
[2016-09-07] MEDS: Albuterol/Ipratropium 3.0-0.5 MG/3 ML Neb Soln INH SCH ×4 (07:29→21:51)
[2016-09-07] MEDS ORDERED: Central Total Parenteral Nutrition Bag SCH (08:00)
[2016-09-07] MEDS: Dronabinol 2.5 MG Cap PO SCH ×2 (08:04→21:51)
[2016-09-07] MEDS: VERIFY FENTANYL PATCH TOP SCH ×2 (08:05→21:52)
[2016-09-07] MEDS: VERIFY SCOPOLAMINE PATCH TOP SCH (08:05)
[2016-09-07] MEDS ORDERED: Lidocaine 2% Viscous Solution 15 ML Cup PO PRN (08:15)
[2016-09-07] MEDS: Tiotropium Inhaler 18 MCG Inhalation Powder Cap Kit of 5 INH SCH (08:43)
[2016-09-07] MEDS: Nystatin Susp 100,000 Unit/ML 5 ML UD Cup PO SCH ×3 (11:20→21:52)
[2016-09-07] MEDS: ClonazePAM 0.5 MG Tab PO PRN (11:23)
[2016-09-07] MEDS: Fat Emulsion 100 ML IV SCH (17:29)
[2016-09-07] MEDS: 1: AA 5%/Calcium/D15W/Lytes 1,000 ML with MVI, Adult with Vitamin K 10 ML, Chromium/Copp IV SCH ×3 (17:30)
[2016-09-07] MEDS: Propranolol 60 MG Cap.ER PO SCH (21:51)
[2016-09-07] MEDS: Pantoprazole 40 MG Tab.CR PO SCH (21:52)
[2016-09-08] MEDS: Acetaminophen/oxyCODONE 325-10 MG Tab PO PRN ×5 (03:36→21:40)
[2016-09-08] MEDS: Nystatin Susp 100,000 Unit/ML 5 ML UD Cup PO SCH ×4 (05:43→21:05)
[2016-09-08] MEDS: Formoterol/Mometasone 200-5 MCG 8.8 GM Inhaler IH SCH ×2 (07:25→21:03)
[2016-09-08] MEDS: Albuterol/Ipratropium 3.0-0.5 MG/3 ML Neb Soln INH SCH ×4 (07:25→21:03)
[2016-09-08] MEDS: Dronabinol 2.5 MG Cap PO SCH ×2 (08:02→21:03)
[2016-09-08] MEDS: VERIFY SCOPOLAMINE PATCH TOP SCH (08:03)
[2016-09-08] MEDS: VERIFY FENTANYL PATCH TOP SCH ×2 (08:03→21:04)
[2016-09-08] MEDS ORDERED: Central Total Parenteral Nutrition Bag SCH (08:15)
[2016-09-08] MEDS: Tiotropium Inhaler 18 MCG Inhalation Powder Cap Kit of 5 INH SCH (08:57)
--- NOTE | 2016-09-08 10:31 | PN ---
DATE OF SERVICE: 09/08/2016 SUBJECTIVE: Marah tolerated the gastrostomy tube feedings well. Yesterday, she had an oral intake of 240. Breakfast, lunch, and dinner recorded as zero. She states she is just not hungry. No change in her TABITHA drainage. TABITHA 1, 2, and 3 have put out 0, 0, and 335. The bile duct drain has put out 8 mL. Pain has been controlled. REVIEW OF SYSTEMS: Remainder of review of systems negative for any pertinent positives and negatives. OBJECTIVE: GENERAL: Marah is a 51-year-old female. Alert and orientated. VITAL SIGNS: TPR is 98.1, 83, 20. Blood pressure 96/65. HEENT: Negative. NECK: Supple. HEART: Regular rate and rhythm. LUNGS: Clear. ABDOMEN: Incision lane intact. TABITHA drains and gastrostomy tube in place. EXTREMITIES: Without peripheral edema. ASSESSMENT: 1. Laparoscopic turned to laparotomy with distal gastrectomy with Loc-en-Y gastrojejunostomy, debridement of segment of deserosalized pancreas, resection of portion of the Loc-en-Y, choledochojejunostomy, and placement of gastrostomy tube on 08/22/2016. 2. Delayed primary closure on 08/24/2016. PLAN: 1. Continue same TPN and lipids rate and content. 2. Check CBC, CMP, Mag, phos in a.m. Continue gastrostomy tube feedings. Continue to encourage good pulmonary toilet. 3. Alfred removed and place Steri-Strips. 4. We will evaluate p.r.n. or in a.m. Sharon Gamboa PA-C /[id number]
[2016-09-08] MEDS: fentaNYL 50 MCG/HR Transdermal Patch TRDERM SCH (10:48)
--- NOTE | 2016-09-08 10:49 | PN ---
DATE OF SERVICE: 09/07/2016 SUBJECTIVE: Marah's blood sugar was recorded at 337 and repeated right away Accu-Chek bedside and it was 77. Her oral intake the past 24 hours was 480. Pain has been controlled. She is having a very sore mouth and hemoglobin this morning was 9.2. AST 172, ALT 143, and alkaline phosphatase 1326. She states her pain is better controlled. REVIEW OF SYSTEMS: Remainder of review of systems negative for any pertinent positives and negatives. OBJECTIVE: GENERAL: Marah Mcgrath is a 51-year-old female. VITAL SIGNS: Stable. HEENT: Negative. NECK: Supple. ABDOMEN: [place] in place. Incision looks good. TABITHA drains are draining 0, 0, 140. Bile duct drain is zero. Gastrostomy tube put out zero. Abdominal binder has been on. EXTREMITIES: Without peripheral edema. ASSESSMENT: Laparoscopic turned to laparotomy with distal gastrectomy with Loc-en-Y gastrojejunostomy, debridement of segment of deserosalized pancreas, resection portion of the Loc-en-Y, choledochojejunostomy, and placement of gastrostomy tube on 08/22/2016. PLAN: 1. Start gastrostomy tube feedings of Jevity 1.5, 6:00 p.m. to 6:00 a.m., 40 mL/h through gastrostomy tube. 100 mL of water before and after feedings. Check CBC, CMP, Mag, phos in a.m. Continue same TPN and lipids. Nystatin swish and swallow 500,000 units 5 mL q.i.d., viscous lidocaine 2 mL mixed in a med cup with water p.r.n. every 4 hours. 2. Good pulmonary toilet encouraged. 3. We will evaluate p.r.n. or in a.m. Sharon Gamboa PA-C /[id number]
[2016-09-08] MEDS: Fat Emulsion 100 ML IV SCH (17:49)
[2016-09-08] MEDS: 1: AA 5%/Calcium/D15W/Lytes 1,000 ML with MVI, Adult with Vitamin K 10 ML, Chromium/Copp IV SCH ×3 (17:50)
[2016-09-08] MEDS: Pantoprazole 40 MG Tab.CR PO SCH (21:04)
[2016-09-08] MEDS: Propranolol 60 MG Cap.ER PO SCH (21:04)
[2016-09-09] MEDS: Acetaminophen/oxyCODONE 325-10 MG Tab PO PRN ×3 (04:23→22:41)
[2016-09-09] MEDS: Nystatin Susp 100,000 Unit/ML 5 ML UD Cup PO SCH ×4 (05:58→22:41)
[2016-09-09] MEDS: Albuterol/Ipratropium 3.0-0.5 MG/3 ML Neb Soln INH SCH ×4 (07:13→20:08)
[2016-09-09] MEDS: Formoterol/Mometasone 200-5 MCG 8.8 GM Inhaler IH SCH ×2 (07:13→20:07)
[2016-09-09] MEDS ORDERED: Central Total Parenteral Nutrition Bag SCH (07:15)
--- NOTE | 2016-09-09 08:21 | PN ---
DATE OF SERVICE: 09/09/2016 SUBJECTIVE: Marah tolerated the gastrostomy tube feedings at 40. TPN continues to run at 40 mL/h. She has been up ambulating. Reports that she thinks she has maybe turned the corner and feeling better. White count was 11.9, hemoglobin 8.9, platelets were 632. Her potassium was 3.8. Glucose this morning was 113. Liver function tests; her AST increased to 295, alkaline phos 225, her ALT is 222, and alkaline phos is 1272. Albumin is 2.6. Oral intake ice chips. She was not able to consume any liquids or she was unable to consume any food as in yogurt or puddings. Breakfast, lunch, dinner consumption is zero. She states the pain is a 4 when she is just laying; when she gets up to walk, it is a 7. REVIEW OF SYSTEMS: Remainder of review of systems negative for any pertinent positives or negatives. OBJECTIVE: GENERAL: Marah Mcgrath is a pleasant 51-year-old female. She is alert and orientated. Looks like she is feeling well. VITAL SIGNS: TPR is 98.1, 80, 16. Blood pressure 98/66. She did have a temp max of 99.4 over the past 24 hours. HEENT: Negative. NECK: Supple. HEART: Regular rate and rhythm. LUNGS: Clear. ABDOMEN: Sutures were removed. The top part of her incision has a clear pink serous drainage. It has gone through her dressing as well as her abdominal binder. The gastrostomy tubes are in place and they have put out 0, 0, 335. The bile duct drain has put out 8 mL. The drainage in #3 is a green cloudy drainage, unchanged from prior postop days. EXTREMITIES: Without peripheral edema. ASSESSMENT: 1. Laparoscopic turned to laparotomy with distal gastrectomy with Loc-en-Y gastrojejunostomy, debridement of segment of deserosalized pancreas, resection of portion of the Loc-en-Y, choledochojejunostomy, and placement of gastrostomy tube on 08/22/2016. 2. Delayed primary closure for open incision on 08/24/2016. 3. No oral intake. Lack of appetite. 4. Gastrostomy tube feedings. 5. TPN nutrition. PLAN: Dietary consult for gastrostomy tube feedings. Continue same TPN rate and content and with dietary instructions, we will hopefully decrease the TPN and discontinue it and just continue with the gastrostomy tube feedings. Good pulmonary toilet encouraged as well as oral intake encouraged. We will evaluate p.r.n. or in a.m. Sharon Gamboa PA-C /[id number]
[2016-09-09] MEDS: VERIFY FENTANYL PATCH TOP SCH ×2 (09:33→20:08)
[2016-09-09] MEDS: Dronabinol 2.5 MG Cap PO SCH ×2 (09:33→20:08)
[2016-09-09] MEDS: VERIFY SCOPOLAMINE PATCH TOP SCH (09:34)
[2016-09-09] MEDS: Scopolamine 1.5 MG Transdermal Patch TOP SCH (09:37)
[2016-09-09] MEDS: Tiotropium Inhaler 18 MCG Inhalation Powder Cap Kit of 5 INH SCH (09:59)
[2016-09-09] MEDS: Doxycycline 100 MG in Sodium Chloride 0.9% 100 ML IV SCH ×2 (11:34→22:41)
[2016-09-09] MEDS: 1: AA 5%/Calcium/D15W/Lytes 1,000 ML with MVI, Adult with Vitamin K 10 ML, Chromium/Copp IV SCH ×6 (15:54→22:42)
[2016-09-09] MEDS: Fat Emulsion 100 ML IV SCH (15:57)
[2016-09-09] MEDS: Sodium Chloride 0.9% 10 ML Syringe IV PRN (16:11)
[2016-09-09] MEDS: Propranolol 60 MG Cap.ER PO SCH (20:08)
[2016-09-09] MEDS: Pantoprazole 40 MG Tab.CR PO SCH (20:09)
[2016-09-10] MEDS: Nystatin Susp 100,000 Unit/ML 5 ML UD Cup PO SCH ×4 (06:12→21:01)
[2016-09-10] MEDS: Acetaminophen/oxyCODONE 325-10 MG Tab PO PRN ×3 (06:38→19:54)
[2016-09-10] MEDS: Albuterol/Ipratropium 3.0-0.5 MG/3 ML Neb Soln INH SCH ×4 (07:23→20:43)
[2016-09-10] MEDS: Formoterol/Mometasone 200-5 MCG 8.8 GM Inhaler IH SCH ×2 (07:23→20:44)
[2016-09-10] MEDS: Tiotropium Inhaler 18 MCG Inhalation Powder Cap Kit of 5 INH SCH (08:32)
[2016-09-10] MEDS ORDERED: Central Total Parenteral Nutrition Bag SCH (08:45)
[2016-09-10] MEDS: Dronabinol 2.5 MG Cap PO SCH ×2 (09:46→20:43)
[2016-09-10] MEDS: VERIFY FENTANYL PATCH TOP SCH ×2 (09:47→20:45)
[2016-09-10] MEDS: VERIFY SCOPOLAMINE PATCH TOP SCH (09:48)
[2016-09-10] MEDS: Doxycycline 100 MG in Sodium Chloride 0.9% 100 ML IV SCH ×2 (10:23→23:36)
[2016-09-10] MEDS: Sodium Chloride 0.9% 10 ML Syringe IV PRN (13:23)
[2016-09-10] MEDS ORDERED: Loperamide 1 MG/5 ML ML Solution 120 ML Bottle PO PRN (14:37)
[2016-09-10] MEDS: Propranolol 60 MG Cap.ER PO SCH (20:44)
[2016-09-10] MEDS: Pantoprazole 40 MG Tab.CR PO SCH (20:45)
[2016-09-11] MEDS: Acetaminophen/oxyCODONE 325-10 MG Tab PO PRN ×4 (00:25→22:00)
[2016-09-11] MEDS: Nystatin Susp 100,000 Unit/ML 5 ML UD Cup PO SCH ×4 (06:16→22:00)
[2016-09-11] MEDS: Albuterol/Ipratropium 3.0-0.5 MG/3 ML Neb Soln INH SCH ×4 (07:18→22:00)
[2016-09-11] MEDS: Formoterol/Mometasone 200-5 MCG 8.8 GM Inhaler IH SCH ×2 (07:18→22:01)
[2016-09-11] MEDS: Tiotropium Inhaler 18 MCG Inhalation Powder Cap Kit of 5 INH SCH (08:00)
[2016-09-11] MEDS ORDERED: Magnesium Hydroxide 400 MG/5 ML Susp 30 ML Cup PO ONE (08:00)
[2016-09-11] MEDS: Dronabinol 2.5 MG Cap PO SCH ×2 (08:59→22:00)
[2016-09-11] MEDS ORDERED: Hydrogen Peroxide 3% Top Soln 240 ML Bottle TOP PRN (09:00)
--- NOTE | 2016-09-11 09:31 | PN ---
DATE OF SERVICE: 09/11/2016 SUBJECTIVE: Marah is a 51-year-old female. She tolerated that gastrostomy tube feedings at 45 mL per hour x24 hours. Her drains have drained about the same as yesterday. She is requesting bowel stimulation. She has not had a bowel movement for 4 days. REVIEW OF SYSTEMS: Remainder of review of systems negative for any pertinent positives and negatives. OBJECTIVE: GENERAL: Marah Mcgrath is a 51-year-old female. She is alert and orientated. Looks like she is feeling better. VITAL SIGNS: Stable. HEENT: Negative. NECK: Supple. HEART: Regular rate and rhythm. LUNGS: Clear. ABDOMEN: Incision does look much improved, it is healing well. Both superficial open areas on gastrostomy tube in place and her TABITHA drains intact. Bile drain intact. EXTREMITIES: Without peripheral edema. ASSESSMENT: 1. Laparoscopic turned to laparotomy with distal gastrectomy with Loc-en-Y gastrojejunostomy, debridement segment of deserosalized pancreas, resection of portion of the Loc-en-Y, choledochojejunostomy, and placement of gastrostomy tube on 08/22/2016. 2. Delayed primary closure for open incision on 08/24/2016. 3. Gastrostomy tube feedings. PLAN: 1. Encourage good pulmonary toilet. 2. Encourage oral intake. 3. Continue gastrostomy tube feedings. 4. Milk of magnesia 30 mL x1 today. 5. We will evaluate p.r.n. or in a.m. Sharon Gamboa PA-C /[id number]
[2016-09-11] MEDS: VERIFY FENTANYL PATCH TOP SCH ×2 (10:04→22:02)
[2016-09-11] MEDS: VERIFY SCOPOLAMINE PATCH TOP SCH (10:05)
[2016-09-11] MEDS: fentaNYL 50 MCG/HR Transdermal Patch TRDERM SCH (11:21)
[2016-09-11] MEDS: Doxycycline 100 MG in Sodium Chloride 0.9% 100 ML IV SCH ×2 (11:35→22:46)
--- NOTE | 2016-09-11 14:59 | PN ---
DATE OF SERVICE: 09/10/2016 SUBJECTIVE: Marah's incision has been leaking. It does look better. She has some 4x4s that has been changing frequently. It is very superficial. Skin is open. The cultures have been negative. She continues with TPN. She tolerated the tube feedings over 12 hours. Her oral intake is still very minimal. It was reported that she had 120 mL in. TABITHA drains have drained over the past 24 hours. TABITHA drain #1 is 20, #2 is 0, #3 is 95. The bile duct drain has drained 10. REVIEW OF SYSTEMS: Remainder of review of systems negative for any pertinent positives and negatives. OBJECTIVE: GENERAL: Marah Mcgrath is a 51-year-old female. VITAL SIGNS: Stable. HEENT: Negative. NECK: Supple. HEART: Regular rate and rhythm. LUNGS: Clear. ABDOMEN: The incision that is open is on the bottom. It is very superficially open and it is draining kind of a thick yellow drainage, non-infected, and TABITHA drains intact. Bile bag intact as above. EXTREMITIES: Without peripheral edema. ASSESSMENT: 1. Postoperative laparoscopic turned to laparotomy with distal gastrectomy with Loc-en-Y gastrojejunostomy, debridement of segment of deserosalized pancreas, resection of portion of Loc-en-Y choledochojejunostomy, and placement of gastrostomy tube on 08/22/2016. 2. Delayed primary closure on 08/24/2016. 3. Lack of oral intake. 4. Gastrostomy tube feedings. 5. TPN nutrition. PLAN: 1. Discontinue TPN when this bag is done. 2. Check labs in a.m. 3. Gastrostomy tube feedings to be 45 mL per hour x24 hours. 4. Good pulmonary toilet and oral intake encouraged. Sharon Gamboa PA-C /[id number]
[2016-09-11] MEDS: Propranolol 60 MG Cap.ER PO SCH (22:01)
[2016-09-11] MEDS: Pantoprazole 40 MG Tab.CR PO SCH (22:02)
[2016-09-12] MEDS: Nystatin Susp 100,000 Unit/ML 5 ML UD Cup PO SCH ×4 (06:44→21:03)
[2016-09-12] MEDS: Albuterol/Ipratropium 3.0-0.5 MG/3 ML Neb Soln INH SCH ×4 (07:19→21:00)
[2016-09-12] MEDS: Formoterol/Mometasone 200-5 MCG 8.8 GM Inhaler IH SCH ×2 (07:22→21:02)
[2016-09-12] MEDS ORDERED: Magnesium Citrate Solution 296 ML Bottle GTUBE ONE (08:00)
--- NOTE | 2016-09-12 08:51 | PN ---
DATE OF SERVICE: 09/12/2016 SUBJECTIVE: Marah is tolerating her continuous G tube feeding of Jevity 1.5 without any difficulty. Her intake was water 600 mL for the past 24 hours. Last BM was 6 days ago. Her bowel stimulation has not been successful. She reports her pain is improved. She has been able to get up and walk more. OBJECTIVE: GENERAL: Marah is a 51-year-old female. VITAL SIGNS: TPR is 99.3, 81, 18, blood pressure 93/46. HEENT: Negative. NECK: Supple. HEART: Regular rate and rhythm. LUNGS: Clear. ABDOMEN: Incision examined. The open area, there just lean a small piece of gauze in that, and it does have a small amount of normal drainage. There is a little bit of redness noted around the gastrostomy tube and the bile duct tube. Otherwise, her incisions look real good. She has had her abdominal binder on. EXTREMITIES: Without peripheral edema. ASSESSMENT: 1. Laparoscopy turned to laparotomy with distal gastrectomy with Loc-en-Y gastrojejunostomy, debridement segment of deserosalized pancreas, resection portion of the Loc-en-Y choledoch, jejunostomy, and placement of gastrostomy tube on 08/22/2016. 2. Delayed primary closure for open incision on 08/24/2016. 3. Gastrostomy tube feeding. PLAN: 1. Mag citrate, give 1/2 bottle through G tube now and repeat at 1600 if no BM. Continue gastrostomy tube feedings with flushing. 2. The diet that was ordered on by Skinny Keyes MD is low-fiber diet on 08/29/2016. She has not been getting a tray, so I did reorder that where she can have room service and order the food that she likes. Continue to encourage oral intake. That is the reason that is keeping her in the hospital, as we need to have some oral intake before being able to be discharged. 3. We will evaluate p.r.n. or in a.m. Sharon Gamboa PA-C /[id number]
[2016-09-12] MEDS: Dronabinol 2.5 MG Cap PO SCH ×2 (08:57→21:00)
[2016-09-12] MEDS: Acetaminophen/oxyCODONE 325-10 MG Tab PO PRN ×3 (08:57→17:57)
[2016-09-12] MEDS: Bacitracin Oint 28.35 GM Tube TOP SCH ×3 (08:58→21:01)
[2016-09-12] MEDS: VERIFY SCOPOLAMINE PATCH TOP SCH (09:01)
[2016-09-12] MEDS: VERIFY FENTANYL PATCH TOP SCH ×2 (09:02→21:03)
[2016-09-12] MEDS: Scopolamine 1.5 MG Transdermal Patch TOP SCH (09:05)
[2016-09-12] MEDS: Tiotropium Inhaler 18 MCG Inhalation Powder Cap Kit of 5 INH SCH (09:32)
[2016-09-12] MEDS ORDERED: Magnesium Citrate Solution 296 ML Bottle GTUBE PRN (16:00)
[2016-09-12] MEDS ORDERED: Magnesium Citrate Solution 296 ML Bottle PO ONE (17:00)
[2016-09-12] MEDS: Propranolol 60 MG Cap.ER PO SCH (21:02)
[2016-09-12] MEDS: Pantoprazole 40 MG Tab.CR PO SCH (21:03)
[2016-09-13] MEDS: Acetaminophen/oxyCODONE 325-10 MG Tab PO PRN ×3 (03:31→20:41)
[2016-09-13] MEDS: Nystatin Susp 100,000 Unit/ML 5 ML UD Cup PO SCH ×5 (05:54→23:59)
[2016-09-13] MEDS: Formoterol/Mometasone 200-5 MCG 8.8 GM Inhaler IH SCH ×2 (07:16→20:44)
[2016-09-13] MEDS: Albuterol/Ipratropium 3.0-0.5 MG/3 ML Neb Soln INH SCH ×4 (07:16→20:42)
[2016-09-13] MEDS: Tiotropium Inhaler 18 MCG Inhalation Powder Cap Kit of 5 INH SCH (08:28)
[2016-09-13] MEDS: Bacitracin Oint 28.35 GM Tube TOP SCH ×3 (08:30→20:45)
--- NOTE | 2016-09-13 10:54 | PN ---
DATE OF SERVICE: 09/13/2016 SUBJECTIVE: Marah is a 51-year-old female whom we are basically waiting for her to get some oral intake in. She has a gastrostomy tube feeding at 40 mL x24 hours. She had a bowel movement yesterday. She did do much better eating yesterday. She did refuse breakfast and lunch, but did have 3 spoons of soup, a carton of milk, a little bit of lemonade, and a little bit of yogurt along with her ice chips and water. OBJECTIVE: Temp-max was 100.2. TABITHA drain 3 had been greenish-bilious drainage, and during the night, it did change to a creamy colored drainage. Her oral intake as stated was 980. TABITHA drains 1 and 2 have put out 1 mL each of a light bilious green drainage, clear, and TABITHA 3 put out 18 mL of a cream-colored drainage. Gastrostomy tube continues to be intact and patent, and bile duct drain put out 0 mL. Abdominal incision looks good. [place] in place on both incisions. That area is healing nicely. That is superficially opening her incision. Extremities without peripheral edema. ASSESSMENT: 1. Laparoscopic turned to laparotomy with distal gastrectomy with Loc-en-Y gastrojejunostomy, debridement segment of deserosalized pancreas, resection portion of the Loc-en-Y, cholecystectomy, jejunostomy, and placement of gastrostomy tube on 08/22/2016. 2. Delayed primary closure of open incision on 08/24/2016. 3. Gastrostomy tube feedings for malnutrition and low BMI. PLAN: 1. Continue same tube feedings. 2. Check amylase on TABITHA drain number 3 drainage. 3. Check CBC, CMP, mag, phos in a.m. 4. Consult with discharge planning to discuss. Mack will be going home by Friday if her oral intake is adequate. If her oral intake is adequate, may need placement in assisted living. 5. We will evaluate p.r.n. or in a.m. Sharon Gamboa PA-C /[id number]
[2016-09-13] MEDS: Dronabinol 2.5 MG Cap PO SCH ×3 (11:31→20:42)
[2016-09-13] MEDS: VERIFY FENTANYL PATCH TOP SCH ×2 (11:32→20:42)
[2016-09-13] MEDS: VERIFY SCOPOLAMINE PATCH TOP SCH (11:32)
[2016-09-13] MEDS: Propranolol 60 MG Cap.ER PO SCH (20:45)
[2016-09-13] MEDS: Pantoprazole 40 MG Tab.CR PO SCH (20:46)
[2016-09-14] MEDS: Nystatin Susp 100,000 Unit/ML 5 ML UD Cup PO SCH ×4 (05:46→21:56)
[2016-09-14] MEDS: Albuterol/Ipratropium 3.0-0.5 MG/3 ML Neb Soln INH SCH ×4 (07:20→20:26)
[2016-09-14] MEDS: Formoterol/Mometasone 200-5 MCG 8.8 GM Inhaler IH SCH ×2 (07:20→21:55)
[2016-09-14] MEDS: Dronabinol 2.5 MG Cap PO SCH ×2 (08:29→21:54)
[2016-09-14] MEDS: Acetaminophen/oxyCODONE 325-10 MG Tab PO PRN ×3 (08:30→22:30)
[2016-09-14] MEDS: Tiotropium Inhaler 18 MCG Inhalation Powder Cap Kit of 5 INH SCH (08:57)
[2016-09-14] MEDS: fentaNYL 50 MCG/HR Transdermal Patch TRDERM SCH (10:31)
[2016-09-14] MEDS: Bacitracin Oint 28.35 GM Tube TOP SCH ×3 (10:31→20:26)
[2016-09-14] MEDS: VERIFY FENTANYL PATCH TOP SCH ×2 (10:32→21:56)
[2016-09-14] MEDS: VERIFY SCOPOLAMINE PATCH TOP SCH (10:32)
[2016-09-14] MEDS: Propranolol 60 MG Cap.ER PO SCH (21:55)
[2016-09-14] MEDS: Pantoprazole 40 MG Tab.CR PO SCH (21:56)
[2016-09-15] MEDS: Nystatin Susp 100,000 Unit/ML 5 ML UD Cup PO SCH (05:18)
[2016-09-15] MEDS: Albuterol/Ipratropium 3.0-0.5 MG/3 ML Neb Soln INH SCH ×4 (07:27→20:59)
[2016-09-15] MEDS: Formoterol/Mometasone 200-5 MCG 8.8 GM Inhaler IH SCH ×2 (07:29→20:56)
[2016-09-15] MEDS: Dronabinol 2.5 MG Cap PO SCH ×2 (08:03→20:59)
[2016-09-15] MEDS: Acetaminophen/oxyCODONE 325-10 MG Tab PO PRN ×4 (08:03→22:32)
[2016-09-15] MEDS: Tiotropium Inhaler 18 MCG Inhalation Powder Cap Kit of 5 INH SCH (09:00)
[2016-09-15] MEDS ORDERED: Iopamidol 612 MG/ML 100 ML Bottle IV PRN (10:20)
[2016-09-15] MEDS ORDERED: Sodium Chloride 0.9% 10 ML Syringe FLUSH PRN (10:20)
[2016-09-15] MEDS ORDERED: Sodium Chloride 0.9% 100 ML IV SCH (10:30)
[2016-09-15] MEDS: Sodium Chloride 0.9% 10 ML Syringe IV PRN (10:47)
--- NOTE | 2016-09-15 13:07 | PN ---
DATE OF SERVICE: 09/15/2016 SUBJECTIVE: Marah is a 51-year-old female. She is alert and orientated. She is reporting pain in her abdomen consistently in 8 to 9. Her fentanyl 50 mcg was replaced yesterday, and she is taking Percocet 10/325 mg for additional pain to the fentanyl. She has had no nausea or vomiting. She does report having shortness of breath and it increases shortness of breath with left lateral chest pain. It gets sharp when she takes a deep breath, but otherwise, it is a constant ache, it starts under her left breast and radiates around to her back up into the axilla. Oral intake 1220 of ice chips and liquid. She did meal, breakfast 0, lunch 0, dinner 0. TABITHA drains have put out 5, 0, and 5, and it is still a little greenish brown color and the bile drain has put out 0. Bowel movement, she had 2 on 09/14/2016. REVIEW OF SYSTEMS: Remainder of review of systems negative for any pertinent positives and negatives. OBJECTIVE: GENERAL: Marah Mcgrath is in no acute distress. VITAL SIGNS: TPR 98.6, 75, 16, O2 is 96% on room air, blood pressure 102/65. HEENT: Negative. NECK: Supple. HEART: Regular rate and rhythm. LUNGS: Clear. ABDOMEN: Her midline incision well healed. There is no further any drainage. TABITHA drain and bile drain intact. There is some redness noted at the skin sites. I am cleaning it with peroxide and putting on bacitracin ointment. EXTREMITIES: Without peripheral edema. ASSESSMENT: 1. Laparoscopy turned to laparotomy with distal gastrectomy with Loc-en-Y gastrojejunostomy, debridement segment of deserosalized pancreas, resection of portion of the Loc-en-Y, cholecystectomy, jejunostomy, and placement of the gastrostomy tube on 08/22/2016. 2. Delayed primary closure of open incision on 08/24/2016. 3. Gastrostomy tube feedings of Jevity 1.5, 24 hours per day. 4. New shortness of breath in left mid and lateral chest pain. PLAN: 1. Check CT of chest with IV contrast. 2. Check CBC, CMP, Mag, phos in a.m. 3. Discontinue scopolamine patch. 4. Good pulmonary toilet encouraged. 5. Record oral intake at bedside, to try to drink 3 med cups per hour and to eat small amounts every 2 hours. Protein supplement ordered for q.i.d. or between meals and at bedtime. Plan discharge in a.m. with home health care. She also will have her mom will be staying with her. 6. We will evaluate p.r.n. or in a.m. Sharon Gamboa PA-C /[id number]
[2016-09-15] MEDS: Bacitracin Oint 28.35 GM Tube TOP SCH ×2 (13:48→20:56)
[2016-09-15] MEDS: VERIFY FENTANYL PATCH TOP SCH ×2 (13:48→21:00)
[2016-09-15] MEDS: Propranolol 60 MG Cap.ER PO SCH (20:56)
[2016-09-15] MEDS: Pantoprazole 40 MG Tab.CR PO SCH (20:57)
[2016-09-16] MEDS: Albuterol/Ipratropium 3.0-0.5 MG/3 ML Neb Soln INH SCH (07:14)
[2016-09-16] MEDS: Formoterol/Mometasone 200-5 MCG 8.8 GM Inhaler IH SCH (07:15)
[2016-09-16] MEDS: Acetaminophen/oxyCODONE 325-10 MG Tab PO PRN ×2 (07:32→11:05)
[2016-09-16 07:42] VITALS: BP 106/71
[2016-09-16] MEDS: Tiotropium Inhaler 18 MCG Inhalation Powder Cap Kit of 5 INH SCH (08:06)
[2016-09-16] MEDS: Bacitracin Oint 28.35 GM Tube TOP SCH (08:32)
[2016-09-16] MEDS: Dronabinol 2.5 MG Cap PO SCH (08:37)
[2016-09-16] MEDS ORDERED: fentaNYL 50 MCG/HR Transdermal Patch TRDERM SCH (09:00)
[2016-09-16] MEDS: VERIFY FENTANYL PATCH TOP SCH (11:04)
--- NOTE | 2016-09-16 11:45 | PN ---
DATE OF SERVICE: 09/14/2016 SUBJECTIVE: Marah is tolerating her gastrostomy tube feedings, 45 mL per hour. Temp-max of 98.4. Oral intake 690, and TABITHA drains have put out 2, 1, and 9 respectively of a bilious derangement with the exception of 3, is quite cloudy. Abdomen otherwise is soft and nontender. Abdominal binder is on. Extremities are negative for any peripheral edema. ASSESSMENT: 1. Laparoscopy turned to laparotomy with distal gastrectomy with Loc-en-Y gastrojejunostomy, debridement segment of deserosalized pancreas. Pancreas resection of portion of the Loc-en-Y cholecystectomy, jejunostomy, and placement of gastrostomy tube on 08/22/2016. 2. Delayed primary closure of open incision on 08/24/2016. 3. Gastrostomy tube feedings for malnutrition and low BMI. PLAN: 1. Continue tube feedings at 45 ml per hour clarification of gastrostomy tubes. 2. Water flushes. She is to have 100 mL of water flushes 3 times a day. 3. We will clarify with dietary orders, which said a couple of different things. We will get this clarified on Friday. We will evaluate p.r.n. or in a.m. Sharon Gamboa PA-C /[id number]
--- NOTE | 2016-09-17 09:48 | OR ---
DATE OF PROCEDURE: 09/16/2016 PREOPERATIVE DIAGNOSIS: Dislodged gastrostomy tube. POSTOPERATIVE DIAGNOSIS: Reinsertion of gastrostomy tube (19856). ANESTHESIA: None. DETAILS OF PROCEDURE: The patient was scheduled to go home later today when her gastrostomy tube, which she receives tube feedings fell out. At the bedside, the area was prepped and draped and a 20-gauge Dumont catheter was then prepared and placed through the preexisting gastrostomy without difficulty. The balloon was inflated with 10 mL of saline. the abdominal wall and secured there. Return of the gastric contents was confirmed and there were no other problems. Skinny Keyes MD /[id number]
--- NOTE | 2016-09-17 12:00 | DISCH ---
ADMISSION DIAGNOSES: 1. Abdominal pain. 2. SP Kathe fundoplication. 3. Duodenal ulcer. 4. Anemia fibromyalgia. 5. Bipolar disorder. 6. Chronic pain. 7. Breast implants. 8. Chronic obstructive pulmonary disease. 9. B12 deficiency, folate deficiency. 10.Atypical chest pain. 11.Negative cardiac workup in the past. DISCHARGE DIAGNOSES: 1. Laparoscopic turned to laparotomy with distal gastrectomy with Loc-en-Y gastrojejunostomy, debridement of segment of deserosalized pancreas, reduction of portion of the Loc-en-Y, cystectomy, jejunostomy, and placement of Vicryl gastric tube on 08/22/2016. 2. Delayed primary closure of open incision on 08/24/2016. 3. Gastrostomy tube feedings. HISTORY: Marah is a 51-year-old female, who for several months has been on a liquid diet. She has had workup by Gastroenterology and an attempt was made at dilating the duodenal ulcer which was unsuccessful. After preoperative evaluation and discussion of possible risks and possible complications, she wished to proceed with surgical procedure. HOSPITAL COURSE: Marah had her surgery on 08/22/2016 for high-grade partial gastric outlet obstruction secondary to nondilatable duodenal ulcer. She had delayed primary closure on 08/24/2016 for an open abdominal incision and indications for central vein access. After, Marah were started on TPN therapy. Her oral intake did not increase so she was started on gastrostomy tube feedings. Pain was difficult to control. She was on a fentanyl pain patch. She was switched from the RISK TECH to oral pain medication and this time was adequate pain control. Due to malnutrition, her progress was slow in getting her nutritional status and her activity as well as her pain control up to where it needed to be before discharge to home. She will be discharged on 09/16/2016 with gastrostomy tube feedings continuous over 24 hours. A drain that is draining bile as well as 3 TABITHA drains. Nutritional oral status: Food intake was up to 800 but her oral solid intake was only bites of solid food. She has been afebrile for several days and has been able to be ambulated in the vitale. She will be discharged with home health care and her mom will also be staying with her. PHYSICAL EXAMINATION: GENERAL: Marah is a 51-year-old female. Height is 5 feet 6 inches. Weight is 125 pounds. VITAL SIGNS: TPR is 99.3, 86, 20. Blood pressure 106/71. HEENT: Negative. NECK: Supple. HEART: Regular rate and rhythm. LUNGS: Clear. ABDOMEN: Midline incision is healing well. There are no lane or Steri-Strips. She did have a previous superficial open area on the top and this is healed and dried. The TABITHA drains are intact as stated and abdominal binder has been on. EXTREMITIES: Without peripheral edema. DISPOSITION: Discharged to home. CONDITION: Stable. FOLLOWUP: With Skinny Keyes MD., on 09/18/2016 at 10:00 am. HOME MEDICATION: 1. Percocet 10/325 1-2 tablets every 4 hours #30. 2. She is to switch to oxycodone when her Percocet is done. 3. Fentanyl patch 50 mcg was put on, she is to take this off on night 09/19/2016. 4. Tylenol 650 mg q.4 hours p.r.n. lesser pain. 5. Bactroban ointment around gastrostomy and TABITHA drains as needed. 6. Zofran ODT 4 mg q.4 hours p.r.n. nausea #30. She is to resume her home medications: 1. Symbicort 2 puffs inhalation twice a day. 2. Clonazepam 0.5 mg at bedtime. 3. Albuterol 2 puffs every 4 hours as needed for shortness of breath. 4. Flonase 2 puffs inhaled twice daily. 5. Folic acid one tablet daily. 6. Minocin 5 mg oral at bedtime. 7. Nitrostat 0.4 sublingual as directed. 8. Protonix 40 mg twice daily. 9. Propranolol 120 mg at bedtime. 10.Sucralfate 1 g oral 4 times a day. 11.Spiriva hand inhaler one puff inhalation daily. 12.Triamcinolone cream one applicator twice daily. 13.Zanaflex as directed. Discontinue taking the Lasix 20 mg daily, take p.r.n. DIET: GI low residue diet. Drink 8 to 10 glasses of water a day. ACTIVITY: No lifting greater than 10 pounds for 1 month[address] inside your home [address] May shower. Notify provider if any fever, increased pain, swelling, redness, drainage, nausea, or vomiting. Keep site clean and dry. Measure bile bag drainage if there is enough to measure and measure TABITHA drains each separately. Wear abdominal binder as tolerated. Keep area around TABITHA drain NG tube clean and dry. Areas get red, apply bacitracin. Use incentive spirometer 10 times every hour while awake for 2 weeks. Keep a journal of oral food and liquid intake and bring to clinic appointments. Gastrostomy tube feeding is Jevity 1.5, turned on at 45 mL per hour, flush 100 mL every 8 hours.
--- NOTE | 2016-10-11 08:26 | PN ---
DATE OF SERVICE: 08/31/2016 The patient's temperature profile has improved over the last 24 hours empirically started her on some Zosyn. Chest x-ray this morning to me looks like primarily some basilar atelectasis, has not had much in production, but we will continue the antibiotics nonetheless. Otherwise, oral intake remains somewhat marginal. We will continue the tube feedings and otherwise maximize activity and work with pulmonary toilet. Her bilirubin appears to be stabilizing at this time as well. Skinny Keyes MD /[id number]
== END 2016-09-16 11:46 | disposition home health service (06) | DRG 220 ==
LOC: JP.SDS 08:56 → JP.MS 08:56 → EDSTATUS 09:30 → JP.2SS 18:20
PROVIDERS: ADMIT Surgery; ATTEND Surgery
PROC: 0DJ64ZZ Inspection of Stomach, Percutaneous Endoscopic Approach (ICD-10-PCS; principal; 2016-08-22)
PROC: 0FBG0ZZ Excision of Pancreas, Open Approach (ICD-10-PCS; principal; 2016-08-22)
PROC: 0DH60UZ Insertion of Feeding Device into Stomach, Open Approach (ICD-10-PCS; principal; 2016-08-22)
PROC: 0D160ZA Bypass Stomach to Jejunum, Open Approach (ICD-10-PCS; principal; 2016-08-22)
PROC: 0F190ZB Bypass Common Bile Duct to Small Intestine, Open Approach (ICD-10-PCS; principal; 2016-08-22)
PROC: 30233N1 Transfusion of Nonautologous Red Blood Cells into Peripheral Vein, Percutaneous Approach (ICD-10-PCS; 2016-08-23)
PROC: 02HV33Z Insertion of Infusion Device into Superior Vena Cava, Percutaneous Approach (ICD-10-PCS; 2016-08-24)
PROC: 0WQF0ZZ Repair Abdominal Wall, Open Approach (ICD-10-PCS; 2016-08-24)
PROC: 30233N1 Transfusion of Nonautologous Red Blood Cells into Peripheral Vein, Percutaneous Approach (ICD-10-PCS; 2016-08-27)
DX: K26.5 Chronic or unspecified duodenal ulcer with perforation (principal); K31.1 Adult hypertrophic pyloric stenosis; K31.89 Other diseases of stomach and duodenum; K86.89 Other specified diseases of pancreas; F31.9 Bipolar disorder, unspecified; M79.7 Fibromyalgia; J44.9 Chronic obstructive pulmonary disease, unspecified; Z87.891 Personal history of nicotine dependence; G89.29 Other chronic pain; E83.42 Hypomagnesemia; E87.6 Hypokalemia; E83.39 Other disorders of phosphorus metabolism; E88.09 Other disorders of plasma-protein metabolism, not elsewhere classified; E46 Unspecified protein-calorie malnutrition; Z68.20 Body mass index [BMI] 20.0-20.9, adult; R06.02 Shortness of breath; R07.9 Chest pain, unspecified; B96.89 Other specified bacterial agents as the cause of diseases classified elsewhere; K13.70 Unspecified lesions of oral mucosa; Z91.048 Other nonmedicinal substance allergy status; D52.9 Folate deficiency anemia, unspecified
CPT/HCPCS: 36415; 36430; 71020; 71020-26; 71260; 74240; 74240-26; 80053; 81001; 82150; 82962; 83735; 84100; 85018; 85025; 85027; 86850; 86900; 86901; 86920; 86922; 87040; 87070; 87077; 87186; 87205; 88305; 88307; 88342; 94640-76; 94667; 94668; 94762; A9270-GY; C9113; J0131; J0694; J1100; J1170; J1200; J1642; J2175; J2185; J2250; J2405; J2543; J2704; J3010; J3410; J3475; J3480; J3490; J7030; J7040; J7042; J7050; J7120; J7620; P9016; P9047; Q9967

== ENCOUNTER 2016-10-23 19:22 | Observation (INO) | payer MEDICAID ==
[2016-10-23] MEDS ORDERED: HYDROmorphone 1 MG/ML Syringe IM ONE (20:06)
[2016-10-23] MEDS ORDERED: Ondansetron 4 MG Tab.DIS PO ONE (20:06)
--- NOTE | 2016-10-23 20:09 | EDM.PDOC ---
ED HPI GENERAL MEDICAL PROBLEM - General Chief Complaint: Gastrointestinal Problem Stated Complaint: STOMACH/BACK PAIN AND FEVER Time Seen by Provider: 10/23/16 19:58 Source of Information: Reports: Patient, Family, RN notes reviewed History Limitations: Reports: No limitations - History of Present Illness INITIAL COMMENTS - FREE TEXT/NARRATIVE: 51-year-old female presents emergency department today with complaint of generalized body aches and fever, she states this all just started today and has progressively gotten worse, she was evaluated by her surgeon today for her recent abdominal surgeries. Denies any flatus did have some nausea earlier no vomiting Abdominal Pain Score (Numeric/FACES): 8 - Related Data Allergies Allergy/AdvReac Type Severity Reaction Status Date / Time adhesive Allergy Rash Verified 08/22/16 09:12 ENVIRONMENTAL Allergy Cannot Uncoded 08/22/16 09:12 Remember Home Meds: Home Meds Fluticasone Propionate [Flonase] 2 puff INH BID 05/28/13 [History] Nitroglycerin [Nitrostat] 0.4 mg SL ASDIRECTED PRN 05/28/13 [History] tiZANidine HCl [Zanaflex] 4 mg PO BEDTIME 05/28/13 [History] Tiotropium [Spiriva HandiHaler] 1 puff INH DAILY 07/11/13 [History] Propranolol HCl [Propranolol] 120 mg PO BEDTIME 12/03/13 [History] Albuterol Sulfate [Proair Hfa] 2 puff INH Q4H PRN 05/09/14 [History] Budesonide/Formoterol [Symbicort 160-4.5 MCG] 2 puff INH BID 05/09/14 [History] Triamcinolone Acetonide [Triamcinolone Acetonide 0.1% Crm] 1 applic TOP BID PRN 05/09/14 [History] Minocycline [Minocin] 50 mg PO BEDTIME 12/21/14 [History] Folic Acid 1 tab PO DAILY 07/19/15 [History] Pantoprazole Sodium [Protonix] 40 mg PO BID 07/19/15 [History] Sucralfate 1 gm PO QID #120 tablet 05/22/16 [Rx] ClonazePAM [KlonoPIN] 0.5 mg PO BEDTIME 06/13/16 [History] Acetaminophen [Tylenol] 650 mg PO Q4H PRN #0 tablet 09/15/16 [Rx] Acetaminophen/oxyCODONE [Percocet 325-10 MG] 1 - 2 tab PO Q4H PRN #30 tablet [Rx] Bacitracin [Bacitracin Oint] 0 gm TOP BID tube 09/15/16 [Rx] Ondansetron [Ondansetron ODT] 4 mg PO Q4H PRN #30 tab.rapdis 09/15/16 [Rx] oxyCODONE 10 mg PO Q4HR PRN #30 tablet 09/15/16 [Rx] Past Medical History HEENT History: Reports: Allergic rhinitis, Impaired vision, Sinusitis Cardiovascular History: Reports: Hypertension Other Cardiovascular History: joint swelling Respiratory History: Reports: COPD, SOB Gastrointestinal History: Reports: GERD, GI bleed, Hemorrhoids, Hiatal hernia Other Gastrointestinal History: esophageal stricture and trouble with spasm 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: , Prolapsed uterus, Spontaneous Musculoskeletal History: Reports: Back pain, chronic, Fracture, Fibromyalgia, Neck pain, chronic, Osteoarthritis, RA, Other (see below) Other Musculoskeletal History: cyst left elbow, scoliosis, Degenerative joint disease Neurological History: Reports: Headaches, chronic, Migraines, Vertigo Psychiatric History: Reports: Anxiety, Depression, Eating disorders, Other (see below) Other Psychiatric History: Dehydration Endocrine/Metabolic History: Reports: Hypothyroidism, Other (see below) Other Endocrine/Metabolic History: tested and went normal 4-5 years ago went normal so stopped thyroid medications Hematologic History: Reports: Anemia, B12 deficiency, Blood transfusion(s), Folic acid, Iron deficiency Dermatologic History: Reports: Eczema, Other (see below) Other Dermatologic History: left eye rash of unknown origin - Infectious Disease History Infectious Disease History: Reports: Chicken pox, Herpes, Measles, Mononucleosis , Mumps Other Infectious Disease History: anaplasmosis - Past Surgical History Head Surgeries/Procedures: Reports: None HEENT Surgical History: Reports: Oral surgery Cardiovascular Surgical History: Reports: None Respiratory Surgical History: Reports: None GI Surgical History: Reports: Appendectomy, Bariatric procedure, Cholecystectomy , Colonoscopy, EGD, Esophageal dilatation, Hernia repair/other, Kathe fundoplication Other GI Surgeries/Procedures: gastric bypass for duodenal ulcer and pancreas/ gallbladder obstruction 6 wks ago. 10/20 and 10/22. has G Tube in for feeding Female Surgical History: Reports: Breast implant, Hysterectomy, Tubal ligation Other Female Surgeries/Procedures: 1 ovary removed Endocrine Surgical History: Reports: None Neurological Surgical History: Reports: None Musculoskeletal Surgical History: Reports: Other (see below) Other Musculoskeletal Surgeries/Procedures:: left elbow Oncologic Surgical History: Reports: Biopsy of breast Dermatological Surgical History: Reports: Plastic surgical reconstruction/repair Social & Family History - Family History Family Medical History: Noncontributory Oncologic: Reports: Breast - Tobacco Use Smoking Status *Q: Former Smoker Years of Tobacco use: 37 Packs/Tins Daily: 1 Used Tobacco, but Quit: Yes Month Tobacco Last Used: 10/09 Second Hand Smoke Exposure: No - Caffeine Use Caffeine Use: Reports: None - Alcohol Use Days Per Week of Alcohol Use: 2 Number of Drinks Per Day: 2 Total Drinks Per Week: 4 - Recreational Drug Use Recreational Drug Use: No Drug Use in Last 12 Months: No Recreational Drug Type: Reports: Marijuana/Hashish ED ROS GENERAL - Review of Systems Review Of Systems: See Below Constitutional: Reports: fever, chills HEENT: Reports: No symptoms Respiratory: Reports: No Symptoms Cardiovascular: Reports: No symptoms GI/Abdominal: Reports: Abdominal pain, Nausea. Denies: Vomiting Musculoskeletal: Reports: muscle pain Skin: Reports: no symptoms Neurological: Reports: No Symptoms ED EXAM, GENERAL - Physical Exam Exam: See Below Free Text/Narrative:: General: Female, mild discomfort secondary generalized pain, alert and oriented x3 HEENT: head is atraumatic normocephalic, eyes pupils equal round reactive to light, sclera clear no conjunctivitis appreciated. Ears tympanic membranes clear and silverman landmarks and light reflex are present bilaterally canals are clear. Nose no septal deviation, nares are clear, no blood present. Mouth mucosa is moist and pink no erythema or exudate noted in soft palate, tongue is midline uvula is midline, dentition is intact. Neck: Supple no thyromegaly no tracheal deviation. Nodes: Cervical nodes subclavicular nodes nontender no palpable lymphadenopathy noted. Lungs: clear to auscultation bilaterally with symmetrical respirations, no adventitious noise appreciated. CV: Regular rate and rhythm S1 and S2 appreciated no murmurs rubs or gallops noted. Abdomen: Soft, generalized tenderness to palpation, no palpable masses or organomegaly appreciated, no distention no guarding bowel sounds are present, surgical wound clean dry and intact however she does have thick purulent discharge around the drains and tube placement. Neuro: Cranial nerves II through XII grossly intact Skin: Warm and dry, intact Extremities: No lower extremity edema appreciated, generalized tenderness to palpation on light any body surface area. Course - Vital Signs Last Recorded V/S: Last Vital Signs Temp 100.1 F 10/23/16 19:35 Pulse 112 H 10/23/16 19:35 Resp 20 10/23/16 19:35 BP 139/65 10/23/16 19:35 Pulse Ox 100 10/23/16 19:35 - Orders/Labs/Meds Orders: Active Orders 24 hr Category Date Time Status Peripheral IV Care [RC] . DIRECTED Care 10/23/16 22:03 Ordered Abdomen Pelvis w Cont [CT] Stat Exams 10/23/16 21:59 Ordered CULTURE BLOOD [BC] Urgent Lab 10/23/16 21:58 Ordered CULTURE BLOOD [BC] Urgent Lab 10/23/16 21:58 Ordered CULTURE URINE [RM] Urgent Lab 10/23/16 21:03 Received Lactated Ringers [Ringers, Lactated] 1,000 ml Med 10/23/16 22:02 Ordered IV BOLUS Sodium Chloride 0.9% [Saline Flush] Med 10/23/16 22:02 Ordered 10 ml FLUSH ASDIRECTED PRN Blood Culture x2 Reflex Set [OM.PC] Urgent Oth 10/23/16 21:57 Ordered Peripheral IV Insertion Adult [OM.PC] Urgent Oth 10/23/16 22:02 Ordered Medication Orders Lactated Ringer's (Ringers, Lactated) 1,000 mls @ 125 mls/hr IV BOLUS ONE Stop: 10/24/16 06:01 Sodium Chloride (Saline Flush) 10 ml FLUSH ASDIRECTED PRN PRN Reason: Keep Vein Open Labs: Laboratory Tests 10/23/16 10/23/16 10/23/16 Range/Units 20:15 20:15 20:15 WBC 12.3 H (4.5-11.0) K/uL RBC 4.15 (3.30-5.50) M/uL Hgb 11.1 L (12.0-15.0) g/dL Hct 34.7 L (36.0-48.0) % MCV 84 (80-98) fL MCH 27 (27-31) pg MCHC 32 (32-36) % Plt Count 228 (150-400) K/uL Neut % (Auto) 65 (36-66) % Lymph % (Auto) 15 L (24-44) % [place] % (Auto) 14 H (2-6) % Eos % (Auto) 5 H (2-4) % Baso % (Auto) 0 (0-1) % Sodium 135 L (140-148) mmol/L Potassium 4.3 (3.6-5.2) mmol/L Chloride 96 L (100-108) mmol/L Carbon Dioxide 32 (21-32) mmol/L Anion Gap 11.3 (5.0-14.0) mmol/L BUN 6 L D (7-18) mg/dL Creatinine 0.9 (0.6-1.0) mg/dL Est Cr Clr Drug Dosing 65.64 mL/min Estimated GFR (MDRD) > 60 (>60) Glucose 106 (74-106) mg/dL Lactic Acid 1.6 (0.4-2.0) mmol/L Calcium 8.6 (8.5-10.1) mg/dL Total Bilirubin 0.4 (0.2-1.0) mg/dL AST 94 H (15-37) U/L ALT 121 H (12-78) U/L Alkaline Phosphatase 1912 H (46-116) U/L Total Protein 7.3 (6.4-8.2) g/dL Albumin 3.1 L (3.4-5.0) g/dL Globulin 4.2 H (2.3-3.5) g/dL Albumin/Globulin Ratio 0.7 L (1.2-2.2) Lipase 177 (73-393) U/L Urine Color Urine Appearance Urine pH (4.5-8.0) Ur Specific [place] (1.008-1.030) Urine Protein (NEGATIVE) mg/dL Urine Glucose (UA) (NEGATIVE) mg/dL Urine Ketones (NEGATIVE) mg/dL Urine Occult Blood (NEGATIVE) Urine Nitrite (NEGATIVE) Urine Bilirubin (NEGATIVE) Urine Urobilinogen (NORMAL) mg/dL Ur Leukocyte Esterase (NEGATIVE) Urine RBC (0-5) Urine WBC (0-5) Ur Epithelial Cells Amorphous Sediment Urine Bacteria Urine Mucus 10/23/16 Range/Units 20:21 WBC (4.5-11.0) K/uL RBC (3.30-5.50) M/uL Hgb (12.0-15.0) g/dL Hct (36.0-48.0) % MCV (80-98) fL MCH (27-31) pg MCHC (32-36) % Plt Count (150-400) K/uL Neut % (Auto) (36-66) % Lymph % (Auto) (24-44) % [place] % (Auto) (2-6) % Eos % (Auto) (2-4) % Baso % (Auto) (0-1) % Sodium (140-148) mmol/L Potassium (3.6-5.2) mmol/L Chloride (100-108) mmol/L Carbon Dioxide (21-32) mmol/L Anion Gap (5.0-14.0) mmol/L BUN (7-18) mg/dL Creatinine (0.6-1.0) mg/dL Est Cr Clr Drug Dosing mL/min Estimated GFR (MDRD) (>60) Glucose (74-106) mg/dL Lactic Acid (0.4-2.0) mmol/L Calcium (8.5-10.1) mg/dL Total Bilirubin (0.2-1.0) mg/dL AST (15-37) U/L ALT (12-78) U/L Alkaline Phosphatase (46-116) U/L Total Protein (6.4-8.2) g/dL Albumin (3.4-5.0) g/dL Globulin (2.3-3.5) g/dL Albumin/Globulin Ratio (1.2-2.2) Lipase (73-393) U/L Urine Color Yellow Urine Appearance Clear Urine pH 9.0 H (4.5-8.0) Ur Specific [place] 1.015 (1.008-1.030) Urine Protein Negative (NEGATIVE) mg/dL Urine Glucose (UA) Normal (NEGATIVE) mg/dL Urine Ketones Negative (NEGATIVE) mg/dL Urine Occult Blood Negative (NEGATIVE) Urine Nitrite Negative (NEGATIVE) Urine Bilirubin Negative (NEGATIVE) Urine Urobilinogen Normal (NORMAL) mg/dL Ur Leukocyte Esterase Moderate (NEGATIVE) Urine RBC 0-5 (0-5) Urine WBC 10-20 H (0-5) Ur Epithelial Cells Many Amorphous Sediment Not seen Urine Bacteria Not seen Urine Mucus Not seen Meds: Medications Generic Name Dose Route Start Last Admin Trade Name Brook PRN Reason Stop Dose Admin Lactated Ringer's 1,000 mls @ 125 mls/hr 10/23/16 22:02 Ringers, Lactated IV 10/24/16 06:01 BOLUS ONE Sodium Chloride 10 ml 10/23/16 22:02 Saline Flush FLUSH ASDIRECTED PRN Keep Vein Open Discontinued Medications Generic Name Dose Route Start Last Admin Trade Name Brook PRN Reason Stop Dose Admin Hydromorphone HCl 1 mg 10/23/16 20:06 10/23/16 20:14 Dilaudid IM 10/23/16 20:07 1 mg ONETIME ONE Administration Ondansetron HCl 4 mg 10/23/16 20:06 10/23/16 20:14 Zofran Odt PO 10/23/16 20:07 4 mg ONETIME ONE Administration Departure - Departure Time of Disposition: 22:10 Disposition: Admitted As Inpatient 67 Condition: fair Clinical Impression: Abdominal pain Qualifiers: Abdominal location: generalized Qualified Code(s): R10.84 - Generalized abdominal pain Forms: ED Department Discharge - My Orders Last 24 Hours: My Active Orders 10/23/16 21:03 CULTURE URINE [RM] Urgent 10/23/16 21:57 Blood Culture x2 Reflex Set [OM.PC] Urgent 10/23/16 21:58 CULTURE BLOOD [BC] Urgent CULTURE BLOOD [BC] Urgent 10/23/16 21:59 Abdomen Pelvis w Cont [CT] Stat 10/23/16 22:02 Lactated Ringers [Ringers, Lactated] 1,000 ml IV BOLUS Sodium Chloride 0.9% [Saline Flush] 10 ml FLUSH ASDIRECTED PRN Peripheral IV Insertion Adult [OM.PC] Urgent 10/23/16 22:03 Peripheral IV Care [RC] . DIRECTED - Assessment/Plan Last 24 Hours: My Active Orders 10/23/16 21:03 CULTURE URINE [RM] Urgent 10/23/16 21:57 Blood Culture x2 Reflex Set [OM.PC] Urgent 10/23/16 21:58 CULTURE BLOOD [BC] Urgent CULTURE BLOOD [BC] Urgent 10/23/16 21:59 Abdomen Pelvis w Cont [CT] Stat 10/23/16 22:02 Lactated Ringers [Ringers, Lactated] 1,000 ml IV BOLUS Sodium Chloride 0.9% [Saline Flush] 10 ml FLUSH ASDIRECTED PRN Peripheral IV Insertion Adult [OM.PC] Urgent 10/23/16 22:03 Peripheral IV Care [RC] . DIRECTED Plan: Assessment Acuity = acute Site and laterality = abdominal pain complicated patient with recent biliary reconstruction surgery Etiology = unclear etiology Manifestations = fever Location of injury = home Lab values = WBC elevated at 12.3 consistent leukocytosis hemoglobin low 11.1 consistent with normal chromic anemia sodium low at 135 consistent hyponatremia AST elevated 94 ALT elevated at 121 consistent elevated liver enzymes alkaline phosphatase elevated 1912 consistent with alkaline phosphatasemia possibly related to recent removal of liver shunt. Albumin low at 2.1 consistent hypoalbuminemia urinalysis WBC 10-20 consistent with pyuria cultures pending CT scan abdomen pelvis with IV and oral contrast is pending. 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 This note was dictated using [employer] voice recognition software please call with any questions.
[2016-10-23] MEDS ORDERED: Sodium Chloride 0.9% 10 ML Syringe FLUSH PRN ×2 (22:02→22:26)
[2016-10-23] MEDS ORDERED: Lactated Ringers 1,000 ML IV ONE (22:02)
[2016-10-23] MEDS ORDERED: Ondansetron 4 MG/2 ML SDV IV PRN (22:12)
[2016-10-23] MEDS ORDERED: Albuterol 8 GM Inhaler INH PRN (22:17)
[2016-10-23] MEDS ORDERED: Nitroglycerin 0.4 MG Tab.SL SL PRN (22:17)
[2016-10-23] MEDS ORDERED: Triamcinolone Acetonide 0.1% Crm 15 GM Tube TOP PRN (22:17)
[2016-10-23] MEDS ORDERED: Iohexol 647 MG/ML 10 ML SDV ONE (22:22)
[2016-10-23] MEDS ORDERED: Iopamidol 612 MG/ML 100 ML Bottle IV PRN (22:26)
[2016-10-23] MEDS ORDERED: HYDROmorphone/Normal Saline 15 MG/30 ML PCA IV SCH (22:30)
[2016-10-23] MEDS ORDERED: HYDROmorphone 1 MG/ML Syringe IVPUSH ONE (23:29)
[2016-10-24] MEDS: Sucralfate 1 GM Tab PO SCH ×4 (06:58→21:07)
[2016-10-24] MEDS ORDERED: Ondansetron 4 MG Tab.DIS PO PRN (07:39)
[2016-10-24] MEDS: Acetaminophen 325 MG Tab PO PRN ×3 (08:48→21:05)
[2016-10-24] MEDS: Formoterol/Mometasone 200-5 MCG 8.8 GM Inhaler IH SCH ×2 (08:51→21:06)
[2016-10-24] MEDS: Tiotropium Inhaler 18 MCG Inhalation Powder Cap Kit of 5 INH SCH (08:53)
[2016-10-24] MEDS: Pantoprazole 40 MG Tab.CR PO SCH ×2 (10:44→21:07)
[2016-10-24] MEDS: Fluticasone Propionate Nasal Spray 16 GM Bottle NAS SCH ×2 (10:44→21:08)
[2016-10-24] MEDS: Bacitracin Oint 28.35 GM Tube TOP SCH ×2 (10:52→21:06)
--- NOTE | 2016-10-24 11:38 | HP ---
HISTORY OF PRESENT ILLNESS: Marah is a 51-year-old female who presented to the emergency room after having her bile duct drain removed earlier in the day. She developed a temperature of 101, and she was having abdominal pain, rating from 5 while sitting and 1-10 to 10 while moving around. She had the biliary stent removed. After she got home, the pain gradually increased. She did go to the ER due to the 101 fever. Since being hospitalized, she has had no fever, chills, or night sweats. She reports fatigue. Pain, she reports as a 5 to 6 if she is laying and 9 to 10 if she moves. The pain is mainly around the gastrostomy tube and on the right side where she has a drain that is being advanced. She currently is on continuous drip of Dilaudid with the BARREL DRUM CUTTER. She feels this is adequate for her pain control. REVIEW OF SYSTEMS: CONSTITUTIONAL: Weight has steadily increased. Her last weight was 126 on 10/21/2016. EYES: Negative. ENT: Negative. CARDIOVASCULAR: No chest pain, murmur, fast or irregular heartbeats. LUNGS: No shortness of breath or cough. GI: Reports no nausea or vomiting. Stools have been regular. : Negative. MUSCULOSKELETAL: Reports joint pain and muscle pain in varying muscles and joints. States she has fibromyalgia and chronic back pain. SKIN/BREASTS: Negative for any moles. NEURO: She reports a headache. She has had a headache for 2 days. She states it is about the same. No dizziness or loss of coordination. PSYCHIATRIC: Negative. ENDOCRINE: No fatigue, excessive thirst, or urination. HEMOLYTIC/LYMPHATIC: No abnormal bleeding, bruising, or lymph node enlargement. Remainder of review of systems negative for any pertinent positives or negatives. PAST SURGICAL HISTORY: 1. Laparoscopic turned to laparotomy with distal gastrectomy with Loc-en-Y gastrojejunostomy, debridement of segment of deserosalized pancreas, reduction of portion of the Loc-en-Y, cystectomy, jejunostomy, and placement of Vicryl gastric tube. Date of surgery 08/22/2016. 2. Laparoscopic Kathe fundoplication, bilateral breast implants, appendectomy, cholecystectomy, several esophageal dilatation, hernia repair and Kathe fundoplication, hysterectomy, tubal ligation, and plastic surgery with reconstruction and repair. PAST MEDICAL HISTORY: Includes impaired vision, chronic sinusitis, hypertension, COPD, GERD, history of GI bleed, chronic back pain, fibromyalgia, chronic neck pain, osteoarthritis, rheumatoid arthritis, degenerative joint disease, scoliosis, chronic headaches, migraines, vertigo, history of anxiety and depression, eating disorder, hypothyroidism, history of anemia, B12 deficiency, folic acid deficiency, iron deficiency, and eczema. ALLERGIES: SEE EMR. MEDICATIONS: See EMR. SOCIAL HISTORY: . Quit smoking in 2011. Caffeine use none. Alcohol rare. PHYSICAL EXAMINATION: GENERAL: Marah Mcgrath is a 51-year-old female. VITAL SIGNS: Height is 5 feet 7 inches. Weight is 119 pounds. TPR 97.8, 95, 16, blood pressure 110/69. O2 is 94% by pulse oximetry. HEENT: Pupils equal, round, and reactive to light and accommodation. Oral mucosa pink and moist. NECK: Supple. Negative lymphadenopathy or thyromegaly. LUNGS: Clear to auscultation in all 4 garduno. No wheezing, rales, or rhonchi. HEART: Regular rate and rhythm without murmur, gallop, or rub. EXTREMITIES: Without peripheral edema. BREASTS: Deferred. ABDOMEN: She had her right flat drain advanced one-half of an inch per Skinny Keyes MD. Her gastrostomy tube is in place. Abdomen is tender in all 4 quadrants. : Deferred. NEURO: Cranial nerves 2-12 intact. Deep tendon reflexes are 2+ and equal bilaterally. MUSCULOSKELETAL: Equal muscle strength in right and left upper and lower extremities. Full range of motion. PSYCHIATRIC: Judgment, insight, orientation to time, mood and affect appropriate. ASSESSMENT: Abdominal pain complicated with recent biliary reconstruction surgery, gastrostomy tube feedings, malnutrition, anemia, status post laparoscopic turned to laparotomy with distal gastrectomy with Loc-en-Y gastrojejunostomy, debridement segment of deserosalized pancreas, reduction of portion of the Loc-en-Y jejunostomy, and placement of Vicryl gastric tube on 08/22/2016, unspecified surgical malabsorption, B12 deficiency, bipolar disorder, chronic pain and on chronic opiate treatment agreement, eating disorder unspecified, eczema, encounter for adjustment or management of vascular access device, environmental allergies, fibromyalgia, folate deficiency, and iron deficiency anemia. PLAN: 1. The patient was admitted as inpatient through the ER yesterday. Plan of stay would be 2 nights and 2 days. 2. To continue BARREL DRUM CUTTER, current pain medication. 3. Pull the drain out 0.5 inch daily. To restart Jevity 1.2, 45 mL per hour, with her routine water flushes. The Jevity should run at 45 mL per hour for 12 hours. 4. Step-4 gastric bypass diet. Her normal routine home medications were ordered and to continue with those. 5. Good pulmonary toilet encouraged. 6. We will evaluate p.r.n. or in a.m. Sharon Gamboa PA-C /[id number]
[2016-10-24] MEDS: Folic Acid 1 MG Tab PO SCH (11:42)
[2016-10-24] MEDS: Propranolol 60 MG Cap.ER PO SCH (21:08)
[2016-10-24] MEDS: ClonazePAM 0.5 MG Tab PO SCH (22:50)
[2016-10-25] MEDS: Acetaminophen 325 MG Tab PO PRN ×5 (03:35→23:50)
[2016-10-25] MEDS: Sucralfate 1 GM Tab PO SCH ×4 (06:59→22:03)
[2016-10-25] MEDS: Tiotropium Inhaler 18 MCG Inhalation Powder Cap Kit of 5 INH SCH (08:57)
[2016-10-25] MEDS: Formoterol/Mometasone 200-5 MCG 8.8 GM Inhaler IH SCH ×2 (08:57→22:02)
[2016-10-25] MEDS: Bacitracin Oint 28.35 GM Tube TOP SCH ×2 (09:38→22:04)
[2016-10-25] MEDS: Fluticasone Propionate Nasal Spray 16 GM Bottle NAS SCH ×2 (09:40→22:02)
[2016-10-25] MEDS: Pantoprazole 40 MG Tab.CR PO SCH ×2 (09:41→22:02)
[2016-10-25] MEDS: Folic Acid 1 MG Tab PO SCH (09:41)
[2016-10-25] MEDS: oxyCODONE 5 MG Tab PO PRN ×4 (09:46→22:13)
--- NOTE | 2016-10-25 15:48 | PN ---
DATE OF SERVICE: 10/25/2016 SUBJECTIVE: Marah had a temp max of 100.3. She was given Tylenol. Pain has been controlled. Vital signs have been stable. She does have some drainage of yellow matter around the right drain that is being advanced. Last BM was yesterday. Oral intake for the past 24 hours is 300 and urine output 2750. REVIEW OF SYSTEM: Otherwise, negative for any pertinent positives and negatives. OBJECTIVE: GENERAL: Marah Mcgrath is a 51-year-old female. She is alert and orientated. Skinny Keyes MD, advanced that drain 1.5 inch. VITALS SIGNS: TPR is 99, 76, 16. Blood pressure 94/58 and pulse oximetry is 94%. HEENT: Negative. NECK: Supple. HEART: Regular rate and rhythm. LUNGS: Clear. ABDOMEN: Gastrostomy tube is in place. Tube was advanced as stated. The skin itself, a small amount of redness noted. Abdomen otherwise is soft. EXTREMITIES: Without peripheral edema. ASSESSMENT: 1. Abdominal pain complicated with recent biliary reconstruction surgery, gastrostomy tube feedings, malnutrition, anemia status post laparoscopic turned to laparotomy with distal gastrectomy with Loc-en-Y gastrojejunostomy, debridement of deserosalized pancreas, resection of portion of the Loc-en-Y jejunostomy and placement of Vicryl gastric tube on 08/22/2016. 2. Gastrostomy tube feedings for malnutrition. 3. Vitamin D deficiency. 4. Unspecified surgical malabsorption. 5. Chronic pain. PLAN: 1. 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 2. Restart her home medication of oxycodone 10 mg every 4 hours p.r.n. Plan on discharge in a.m. Continue to increase oral intake. 3. Good pulmonary toilet encouraged. 4. We will evaluate p.r.n. or in a.m. Sharon Gamboa PA-C /[id number]
[2016-10-25] MEDS: ClonazePAM 0.5 MG Tab PO SCH (22:02)
[2016-10-25] MEDS: Propranolol 60 MG Cap.ER PO SCH (22:04)
[2016-10-26] MEDS: oxyCODONE 5 MG Tab PO PRN ×3 (02:09→10:23)
[2016-10-26] MEDS: Acetaminophen 325 MG Tab PO PRN ×2 (04:16→07:59)
[2016-10-26] MEDS: Sucralfate 1 GM Tab PO SCH ×2 (06:00→10:23)
[2016-10-26] MEDS: Bacitracin Oint 28.35 GM Tube TOP SCH (08:01)
[2016-10-26] MEDS: Formoterol/Mometasone 200-5 MCG 8.8 GM Inhaler IH SCH (09:17)
[2016-10-26] MEDS: Tiotropium Inhaler 18 MCG Inhalation Powder Cap Kit of 5 INH SCH (09:18)
[2016-10-26] MEDS: Folic Acid 1 MG Tab PO SCH (10:22)
[2016-10-26] MEDS: Fluticasone Propionate Nasal Spray 16 GM Bottle NAS SCH (10:22)
[2016-10-26] MEDS: Pantoprazole 40 MG Tab.CR PO SCH (10:22)
[2016-10-26 10:48] VITALS: BP 92/61
--- NOTE | 2016-10-27 15:50 | DISCH ---
FINAL DIAGNOSIS: Abdominal pain, status post removal of biliary stent. SECONDARY DIAGNOSES: 1. Recent major gastric resection during biliary reconstruction and pancreatic debridement for complicated duodenal ulcer with gastric outlet obstruction. 2. Malnutrition. OPERATIVE PROCEDURES: None. HOSPITAL COURSE: This is a 51-year-old female status post complex operation for complicated duodenal ulcer with gastric outlet obstruction. She had a biliary stent which was then pulled on Friday. She then came back once again with some increased pain. She developed some low-grade temps, but at no point they appeared to be . Her TABITHA drain was continued to be removed. She does have some drainage probably from a small stitch abscess in the midline incision, which will probably open up further on Friday if it continues to drain. Otherwise, she will be discharged home with her to continue to advance TABITHA drain 0.5 inch daily, resume present tube feedings, and continue the medications as prior to discharge. She will be following up with Dr. Keyes at [facility] on 10/30/2016 with CBC and CMP to be obtained at that point.
== END 2016-10-26 12:00 | disposition home or self-care (01) ==
LOC: JP.ED 19:22 → JP.MS 10-24 00:51
PROVIDERS: ADMIT Surgery; ATTEND Surgery
DX: R10.84 Generalized abdominal pain (principal); E46 Unspecified protein-calorie malnutrition; Z68.1 Body mass index [BMI] 19.9 or less, adult; R53.83 Other fatigue; E03.9 Hypothyroidism, unspecified; F41.8 Other specified anxiety disorders; E53.8 Deficiency of other specified B group vitamins; D64.9 Anemia, unspecified; J44.9 Chronic obstructive pulmonary disease, unspecified; K21.9 Gastro-esophageal reflux disease without esophagitis; K44.9 Diaphragmatic hernia without obstruction or gangrene; G89.29 Other chronic pain; Z93.1 Gastrostomy status; Z87.891 Personal history of nicotine dependence; R50.9 Fever, unspecified; E87.1 Hypo-osmolality and hyponatremia
CPT/HCPCS: 36415; 74177; 80053; 81001; 83605; 83690; 85025; 87040; 87086; 87804; 94640; 94762; 96361; 96374; 99285; A9270; J1170; J1642; J7030; J7050; J7120; Q9967; 96372; G0378

== ENCOUNTER 2017-01-20 13:47 | Emergency (ER) | payer MEDICAID ==
--- NOTE | 2017-01-20 14:40 | EDM.PDOC ---
ED HPI GENERAL MEDICAL PROBLEM - General Chief Complaint: Gastrointestinal Problem Stated Complaint: BLOOD IN STOOL/PEPTIC ULCER Time Seen by Provider: 01/20/17 14:26 Source of Information: Reports: Patient History Limitations: Reports: No Limitations - History of Present Illness INITIAL COMMENTS - FREE TEXT/NARRATIVE: Patient presents to the emergency room for evaluation of bright red bloody stools and diarrhea. She is also some stomach pain. Which she described more in the upper part of the abdomen. The patient's history of peptic ulcer disease. She had bypass surgery in July. Onset: Today Onset Date: 01/20/17 Duration: Hour(s):, Intermittent Location: Reports: Abdomen Quality: Reports: Ache, Same as Previous Episode Severity: Mild Improves with: Reports: None Worsens with: Reports: None Associated Symptoms: Denies: Confusion, Fever/Chills, Shortness of Breath Treatments NURSE OBGYN: Reports: Other Medication(s) denies Pain Score (Numeric/FACES): 0 - Related Data Allergies Allergy/AdvReac Type Severity Reaction Status Date / Time adhesive Allergy Rash Verified 01/20/17 14:28 hydromorphone Allergy Itching Verified 01/20/17 14:28 tramadol Allergy Itching Verified 01/20/17 14:28 ENVIRONMENTAL Allergy Cannot Uncoded 01/20/17 14:28 Remember Home Meds: Home Meds Fluticasone Propionate [Flonase] 2 spray MEHUL DAILY 05/28/13 [History] Nitroglycerin [Nitrostat] 0.4 mg SL ASDIRECTED PRN 05/28/13 [History] tiZANidine HCl [Zanaflex] 4 mg PO BEDTIME 05/28/13 [History] Tiotropium [Spiriva HandiHaler] 1 puff INH DAILY 07/11/13 [History] Propranolol HCl [Propranolol] 120 mg PO BEDTIME 12/03/13 [History] Albuterol Sulfate [Proair Hfa] 2 puff INH Q4H PRN 05/09/14 [History] Budesonide/Formoterol [Symbicort 160-4.5 MCG] 2 puff INH BID 05/09/14 [History] Triamcinolone Acetonide [Triamcinolone Acetonide 0.1% Crm] 1 applic TOP BID PRN 05/09/14 [History] Minocycline [Minocin] 50 mg PO BEDTIME 12/21/14 [History] Folic Acid 1 tab PO DAILY 07/19/15 [History] Pantoprazole Sodium [Protonix] 40 mg PO BID 07/19/15 [History] Sucralfate 1 gm PO QID #120 tablet 05/22/16 [Rx] ClonazePAM [KlonoPIN] 0.5 mg PO BEDTIME 06/13/16 [History] Ondansetron [Ondansetron ODT] 4 mg PO Q4H PRN #30 tab.rapdis 09/15/16 [Rx] oxyCODONE 10 mg PO Q4HR PRN #30 tablet 09/15/16 [Rx] Fexofenadine/Pseudoephedrine [Colette-D 24 Hour Tablet] 1 tab PO DAILY 01/14/17 [History] Furosemide [Lasix] 1 tab PO DAILY 01/14/17 [History] Past Medical History HEENT History: Reports: Allergic Rhinitis, Impaired Vision, Sinusitis Cardiovascular History: Reports: Hypertension Other Cardiovascular History: joint swelling Respiratory History: Reports: Asthma, COPD, SOB Gastrointestinal History: Reports: GERD, GI Bleed, Hemorrhoids, Hiatal Hernia Other Gastrointestinal History: esophageal stricture and trouble with spasm 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: , Prolapsed Uterus, Spontaneous Musculoskeletal History: Reports: Back Pain, Chronic, Fracture, Fibromyalgia, Neck Pain, Chronic, Osteoarthritis, RA, Other (See Below) Other Musculoskeletal History: cyst left elbow, scoliosis, Degenerative joint disease Neurological History: Reports: Headaches, Chronic, Migraines, Vertigo Psychiatric History: Reports: Anxiety, Depression, Eating Disorders, Other (See Below) Other Psychiatric History: Dehydration Endocrine/Metabolic History: Reports: Hypothyroidism, Other (See Below) Other Endocrine/Metabolic History: tested and went normal 4-5 years ago went normal so stopped thyroid medications Hematologic History: Reports: Anemia, B12 Deficiency, Blood Transfusion(s), Folic Acid, Iron Deficiency Dermatologic History: Reports: Eczema, Other (See Below) Other Dermatologic History: left eye rash of unknown origin - Infectious Disease History Infectious Disease History: Reports: Chicken Pox, Herpes, Measles, Mononucleosis , Mumps Other Infectious Disease History: anaplasmosis - Past Surgical History HEENT Surgical History: Reports: Oral Surgery GI Surgical History: Reports: Appendectomy, Bariatric Procedure, Cholecystectomy , Colonoscopy, EGD, Esophageal Dilatation, Hernia Repair/Other, Kathe Fundoplication Female Surgical History: Reports: Breast Implant, Hysterectomy, Tubal Ligation Musculoskeletal Surgical History: Reports: Other (See Below) Oncologic Surgical History: Reports: Biopsy of Breast Dermatological Surgical History: Reports: Plastic Surgical Reconstruction/Repair Social & Family History - Family History Family Medical History: Noncontributory Oncologic: Reports: Breast - Tobacco Use Smoking Status *Q: Former Smoker Years of Tobacco use: 37 Packs/Tins Daily: 1 Used Tobacco, but Quit: Yes Month Tobacco Last Used: june Second Hand Smoke Exposure: No - Caffeine Use Caffeine Use: Reports: None - Alcohol Use Days Per Week of Alcohol Use: 2 Number of Drinks Per Day: 2 Total Drinks Per Week: 4 - Recreational Drug Use Recreational Drug Use: No Drug Use in Last 12 Months: No Recreational Drug Type: Reports: Marijuana/Hashish ED ROS GENERAL - Review of Systems Review Of Systems: See Below Constitutional: Reports: Malaise, Fatigue, Decreased Appetite. Denies: Fever, Chills HEENT: Reports: No Symptoms Respiratory: Reports: No Symptoms Cardiovascular: Reports: No Symptoms Endocrine: Reports: Fatigue GI/Abdominal: Reports: Abdominal Pain, Bloody Stool, Diarrhea : Reports: No Symptoms Musculoskeletal: Reports: No Symptoms Skin: Reports: Dryness. Denies: Bruising, Erythema Neurological: Reports: No Symptoms Psychiatric: Reports: No Symptoms ED EXAM, GI/ABD - Physical Exam Exam: See Below Exam Limited By: No Limitations General Appearance: Alert, WD/WN, Anxious, Mild Distress Eyes: Bilateral: Normal Appearance Ears: Normal External Exam, Hearing Grossly Normal Nose: Normal Inspection Throat/Mouth: Normal Inspection, Normal Voice Head: Atraumatic, Normocephalic Neck: Normal Inspection, Supple Respiratory/Chest: No Respiratory Distress, Lungs Clear Cardiovascular: Normal Peripheral Pulses, Regular Rate, Rhythm GI/Abdominal Exam: Normal Bowel Sounds, Soft, Tender (In the epigastrium). No: Guarding, Rigid, Rebound Rectal (Female) Exam: Normal Exam, Normal Rectal Tone, Other (Rectal vault is empty). No: Bloody Stool, Mass, Perirectal Abscess, Rectal Fissure Back Exam: Normal Inspection Extremities: Normal Inspection Neurological: Alert, Oriented, Normal Cognition Psychiatric: Normal Mood, Anxious Skin Exam: Warm, Dry, Intact, Normal Color Course - Vital Signs Last Recorded V/S: Last Vital Signs Temp 97.3 F 01/20/17 18:54 Pulse 96 01/20/17 18:54 Resp 16 01/20/17 18:54 BP 140/95 H 01/20/17 18:54 Pulse Ox 100 01/20/17 18:54 - Orders/Labs/Meds Orders: Active Orders 24 hr Category Date Time Status Peripheral IV Care [RC] . DIRECTED Care 01/20/17 14:46 Active CLOSTRIDIUM DIFFICILE BY PCR [RM] Stat Lab 01/20/17 19:41 Uncollected CULTURE STOOL + SHIGATOX [RM] Stat Lab 01/20/17 15:51 Uncollected WBC, STOOL [OP] Stat Lab 01/20/17 15:51 Uncollected Sodium Chloride 0.9% [Normal Saline] 1,000 ml Med 01/20/17 14:45 Active IV ASDIRECTED Sodium Chloride 0.9% [Saline Flush] Med 01/20/17 14:46 Active 10 ml FLUSH ASDIRECTED PRN Peripheral IV Insertion Adult [OM.PC] Stat Oth 01/20/17 14:45 Ordered Medication Orders Sodium Chloride (Normal Saline) 1,000 mls @ 125 mls/hr IV ASDIRECTED MIKE Last Admin: 01/20/17 15:00 Dose: 125 mls/hr Sodium Chloride (Saline Flush) 10 ml FLUSH ASDIRECTED PRN PRN Reason: Keep Vein Open Labs: Laboratory Tests 01/20/17 01/20/17 01/20/17 Range/Units 14:47 14:47 14:47 WBC 7.3 (4.5-11.0) K/uL RBC 3.43 (3.30-5.50) M/uL Hgb 9.4 L (12.0-15.0) g/dL Hct 28.7 L (36.0-48.0) % MCV 84 (80-98) fL MCH 27 (27-31) pg MCHC 33 (32-36) % Plt Count 237 (150-400) K/uL Neut % (Auto) 75 H (36-66) % Lymph % (Auto) 14 L (24-44) % [place] % (Auto) 9 H (2-6) % Eos % (Auto) 1 L (2-4) % Baso % (Auto) 1 (0-1) % PT 10.5 (9.5-12.0) sec INR 0.98 (0.80-1.20) APTT 22.2 L (27.0-36.0) sec Sodium 137 L (140-148) mmol/L Potassium 4.4 (3.6-5.2) mmol/L Chloride 101 (100-108) mmol/L Carbon Dioxide 27 (21-32) mmol/L Anion Gap 13.4 (5.0-14.0) mmol/L BUN 33 H D (7-18) mg/dL Creatinine 1.0 (0.6-1.0) mg/dL Est Cr Clr Drug Dosing 54.51 mL/min Estimated GFR (MDRD) 59 L (>60) Glucose 129 H (74-106) mg/dL Calcium 8.7 (8.5-10.1) mg/dL Total Bilirubin 0.7 D (0.2-1.0) mg/dL AST 170 H D (15-37) U/L ALT 119 H (12-78) U/L Alkaline Phosphatase 2051 H (46-116) U/L Total Protein 7.0 (6.4-8.2) g/dL Albumin 3.1 L (3.4-5.0) g/dL Globulin 3.9 H (2.3-3.5) g/dL Albumin/Globulin Ratio 0.8 L (1.2-2.2) Amylase 48 D (25-115) U/L Lipase 118 (73-393) U/L Urine Color Urine Appearance Urine pH (4.5-8.0) Ur Specific [place] (1.008-1.030) Urine Protein (NEGATIVE) mg/dL Urine Glucose (UA) (NEGATIVE) mg/dL Urine Ketones (NEGATIVE) mg/dL Urine Occult Blood (NEGATIVE) Urine Nitrite (NEGATIVE) Urine Bilirubin (NEGATIVE) Urine Urobilinogen (NORMAL) mg/dL Ur Leukocyte Esterase (NEGATIVE) Urine RBC (0-5) Urine WBC (0-5) Ur Epithelial Cells Urine Bacteria Urine Mucus 01/20/17 Range/Units 15:16 WBC (4.5-11.0) K/uL RBC (3.30-5.50) M/uL Hgb (12.0-15.0) g/dL Hct (36.0-48.0) % MCV (80-98) fL MCH (27-31) pg MCHC (32-36) % Plt Count (150-400) K/uL Neut % (Auto) (36-66) % Lymph % (Auto) (24-44) % [place] % (Auto) (2-6) % Eos % (Auto) (2-4) % Baso % (Auto) (0-1) % PT (9.5-12.0) sec INR (0.80-1.20) APTT (27.0-36.0) sec Sodium (140-148) mmol/L Potassium (3.6-5.2) mmol/L Chloride (100-108) mmol/L Carbon Dioxide (21-32) mmol/L Anion Gap (5.0-14.0) mmol/L BUN (7-18) mg/dL Creatinine (0.6-1.0) mg/dL Est Cr Clr Drug Dosing mL/min Estimated GFR (MDRD) (>60) Glucose (74-106) mg/dL Calcium (8.5-10.1) mg/dL Total Bilirubin (0.2-1.0) mg/dL AST (15-37) U/L ALT (12-78) U/L Alkaline Phosphatase (46-116) U/L Total Protein (6.4-8.2) g/dL Albumin (3.4-5.0) g/dL Globulin (2.3-3.5) g/dL Albumin/Globulin Ratio (1.2-2.2) Amylase (25-115) U/L Lipase (73-393) U/L Urine Color Yellow Urine Appearance Cloudy Urine pH 6.0 (4.5-8.0) Ur Specific [place] 1.020 (1.008-1.030) Urine Protein Negative (NEGATIVE) mg/dL Urine Glucose (UA) Normal (NEGATIVE) mg/dL Urine Ketones Negative (NEGATIVE) mg/dL Urine Occult Blood Negative (NEGATIVE) Urine Nitrite Negative (NEGATIVE) Urine Bilirubin Small (NEGATIVE) Urine Urobilinogen Normal (NORMAL) mg/dL Ur Leukocyte Esterase Negative (NEGATIVE) Urine RBC 0-5 (0-5) Urine WBC 0-5 (0-5) Ur Epithelial Cells Moderate Urine Bacteria Few Urine Mucus Few Meds: Medications Generic Name Dose Route Start Last Admin Trade Name Freq PRN Reason Stop Dose Admin Sodium Chloride 1,000 mls @ 125 mls/hr 01/20/17 14:45 01/20/17 15:00 Normal Saline IV 125 mls/hr ASDIRECTED MIKE Administration Sodium Chloride 10 ml 01/20/17 14:46 Saline Flush FLUSH ASDIRECTED PRN Keep Vein Open - Re-Assessments/Exams Free Text/Narrative Re-Assessment/Exam: 01/20/17 19:29 Patient has not had a bowel movement. The rectal examination did not find any sniffing amount of stool in the rectal vault. The fecal material on the glove was placed on the Hemoccult card and sent to the lab. Departure - Departure Time of Disposition: 19:49 Disposition: Home, Self-Care 01 Condition: Good Clinical Impression: Bloody diarrhea - Discharge Information Forms: ED Department Discharge Additional Instructions: Patient is seen in the emergency room after having episodes of bloody diarrhea home. Here in the emergency room she did not have any further episodes of diarrhea. Reviewed the case with Dr. Aamir Keyes. The patient will be sent home. She will collect a stool sample for analysis and return those to the hospital laboratory. The patient will be seen and reevaluated if symptoms recur. Continue her present home medication. - Problem List & Annotations (1) Bloody diarrhea SNOMED Code(s): 40309765 Code(s): R19.7 - DIARRHEA, UNSPECIFIED Status: Acute Priority: Medium Current Visit: Yes - Problem List Review Problem List Initiated/Reviewed/Updated: Yes - My Orders Last 24 Hours: My Active Orders 01/20/17 14:45 Sodium Chloride 0.9% [Normal Saline] 1,000 ml IV ASDIRECTED Peripheral IV Insertion Adult [OM.PC] Stat 01/20/17 14:46 Peripheral IV Care [RC] . DIRECTED Sodium Chloride 0.9% [Saline Flush] 10 ml FLUSH ASDIRECTED PRN 01/20/17 15:51 CULTURE STOOL + SHIGATOX [RM] Stat WBC, STOOL [OP] Stat 01/20/17 19:41 CLOSTRIDIUM DIFFICILE BY PCR [] Stat - Assessment/Plan Last 24 Hours: My Active Orders 01/20/17 14:45 Sodium Chloride 0.9% [Normal Saline] 1,000 ml IV ASDIRECTED Peripheral IV Insertion Adult [OM.PC] Stat 01/20/17 14:46 Peripheral IV Care [RC] . DIRECTED Sodium Chloride 0.9% [Saline Flush] 10 ml FLUSH ASDIRECTED PRN 01/20/17 15:51 CULTURE STOOL + SHIGATOX [RM] Stat WBC, STOOL [OP] Stat 01/20/17 19:41 CLOSTRIDIUM DIFFICILE BY PCR [RM] Stat
[2017-01-20] MEDS ORDERED: Sodium Chloride 0.9% 1,000 ML IV SCH (14:45)
[2017-01-20] MEDS ORDERED: Sodium Chloride 0.9% 10 ML Syringe FLUSH PRN (14:46)
[2017-01-20 18:55] VITALS: BP 140/95
== END 2017-01-20 20:49 | disposition home or self-care (01) ==
LOC: JP.ED 13:47
DX: R19.7 Diarrhea, unspecified (principal); I10 Essential (primary) hypertension; J45.909 Unspecified asthma, uncomplicated; K21.9 Gastro-esophageal reflux disease without esophagitis; M19.90 Unspecified osteoarthritis, unspecified site; M06.9 Rheumatoid arthritis, unspecified; F41.9 Anxiety disorder, unspecified; F32.9 Major depressive disorder, single episode, unspecified; E03.9 Hypothyroidism, unspecified; G43.909 Migraine, unspecified, not intractable, without status migrainosus; Z88.5 Allergy status to narcotic agent; Z88.8 Allergy status to other drugs, medicaments and biological substances; Z79.899 Other long term (current) drug therapy; Z90.49 Acquired absence of other specified parts of digestive tract; Z98.84 Bariatric surgery status; Z90.710 Acquired absence of both cervix and uterus; Z98.51 Tubal ligation status; Z87.891 Personal history of nicotine dependence
CPT/HCPCS: 36415; 80053; 81001; 82150; 82272; 83690; 85025; 85610; 85730; 96360; 96361; 99284; J7040

== ENCOUNTER 2017-02-28 05:52 | Day surgery (SDC) | payer MEDICAID ==
[2017-02-28] MEDS ORDERED: Lactated Ringers 1,000 ML IV ONE (06:30)
[2017-02-28] MEDS ORDERED: Cyanocobalamin (Vitamin B12) 1,000 MCG/ML SDV IM ONE (07:00)
[2017-02-28] MEDS ORDERED: fentaNYL 100 MCG/2 ML SDV ONE (07:12)
[2017-02-28] MEDS ORDERED: Midazolam 1 MG/ML 2 ML SDV ONE (07:12)
[2017-02-28] MEDS ORDERED: Propofol 200 MG/20 ML SDV ONE (07:12)
[2017-02-28] MEDS ORDERED: Glycopyrrolate 0.2 MG/ML 2 ML SDV IVPUSH ONE (07:15)
[2017-02-28] MEDS ORDERED: Pantoprazole 40 MG Vial IVPUSH ONE (07:41)
[2017-02-28] MEDS ORDERED: MVI, Adult with Vitamin K 10 ML, Thiamine 200 MG, Chromium/Copper/Mang/Selen/Zn 1 ML in... IV ONE ×4 (08:00)
[2017-02-28] MEDS ORDERED: Sodium Chloride 0.9% 1,000 ML IV SCH (10:15)
[2017-02-28] MEDS ORDERED: Famotidine 20 MG/2 ML SDV IVPUSH PRN (11:00)
[2017-02-28] MEDS ORDERED: Hydrocortisone Sodium Succinate 100 MG/2 ML SDV IVPUSH PRN (11:00)
[2017-02-28] MEDS ORDERED: diphenhydrAMINE 50 MG/ML SDV IVPUSH PRN (11:00)
[2017-02-28 14:17] VITALS: BP 103/56
--- NOTE | 2017-03-03 12:32 | OR ---
DATE OF PROCEDURE: 02/28/2017 PREOPERATIVE DIAGNOSIS: Recent upper gastrointestinal bleeding. POSTOPERATIVE DIAGNOSIS: Recent upper gastrointestinal bleeding, likely associated with erosive gastritis. OPERATIVE PROCEDURE: Upper GI endoscopy with gastric biopsies for CLOtest. ANESTHESIA: IV sedation. INDICATION FOR PROCEDURE: This is a 51-year-old female presenting with some recent black stools. In the recent past, she has had some problems with GI bleeding. Presently, she is on Protonix 40 mg a day along with Carafate 1 gram q.i.d. The plan is to proceed with an upper GI endoscopy with biopsies as indicated. Potential risks including bleeding and perforation were discussed, and the patient wishes to proceed. DETAILS OF PROCEDURE: The patient was taken to the operating room and placed in a left lateral decubitus position. IV sedation was administered after which the upper GI endoscope was passed orally through the length of the esophagus, into the stomach, and from there through the gastrojejunostomy roughly 20 cm into the Loc limb. Findings included normal esophagus and EG junction area. Within the stomach, there was no blood or bleeding present. There was some erosive gastritis present within the distal stomach. This, at this point, appeared to be largely healed with there only being faint areas of some fibrinous exudate. This would be consistent with the patient's history of having black stools over the last several days. The gastrojejunostomy otherwise was unremarkable as was the visualized portion of the Loc limb. Biopsies were then obtained from the distal stomach and sent for CLOtest for H. pylori. Minimal bleeding from the biopsy sites was seen and the procedure then concluded. The plan will be to give the patient additional dose of Protonix in the recovery room. Her hemoglobin today is 7.9 with a ferritin of 15. Given this, we will give her 1 unit of packed RBCs prior to discharge along with infusion of Feraheme 510 mg to facilitate spontaneous production of blood cells. Otherwise, we will see the patient back next Friday for a recheck with a CBC and ferritin to be obtained at that time. The patient empirically today received a vitamin B12 injection. Skinny Keyes MD /[id number]
== END 2017-02-28 14:15 | disposition home or self-care (01) ==
LOC: JP.SDS 05:52
PROVIDERS: ATTEND Surgery
DX: K25.9 Gastric ulcer, unspecified as acute or chronic, without hemorrhage or perforation (principal); D64.9 Anemia, unspecified; K21.9 Gastro-esophageal reflux disease without esophagitis; M79.7 Fibromyalgia; F31.9 Bipolar disorder, unspecified; Z79.899 Other long term (current) drug therapy
CPT/HCPCS: 36415; 36430; 43239; 82607; 82728; 85027; 86850; 86900; 86901; 86920; 86922; 87081; C9113; J2250; J2704; J3010; J3411; J3420; J7030; J7040; J7120; P9016; Q0138; J3490

== ENCOUNTER 2017-04-17 15:26 | Emergency (ER) | payer MEDICAID ==
[2017-04-17 15:32] VITALS: BP 107/73
[2017-04-17] MEDS ORDERED: Sodium Chloride 0.9% 1,000 ML IV SCH (16:00)
--- NOTE | 2017-04-17 18:45 | EDM.PDOC ---
ED HPI GENERAL MEDICAL PROBLEM - General Chief Complaint: General Stated Complaint: illness Time Seen by Provider: 04/17/17 18:40 Source of Information: Reports: Patient, Family History Limitations: Reports: Intoxication - History of Present Illness INITIAL COMMENTS - FREE TEXT/NARRATIVE: pt states she has had some gi bleeding and she is here to be evaluated. Onset: Today, Other (pt hs been drinking heavily. She does have a history of peptic ulcer disease. ) Duration: Hour(s): Location: Reports: Abdomen Associated Symptoms: Reports: No Other Symptoms, Other (pt has made some suicidal threats. She has been hospitalized at [facility] in the past. ) - Related Data Allergies Allergy/AdvReac Type Severity Reaction Status Date / Time adhesive Allergy Rash Verified 02/28/17 06:17 codeine Allergy Cannot Verified 02/28/17 06:17 Remember hydromorphone Allergy Itching Verified 02/28/17 06:17 morphine Allergy Cannot Verified 02/28/17 06:17 Remember tramadol Allergy Itching Verified 02/28/17 06:17 ENVIRONMENTAL Allergy Cannot Uncoded 02/28/17 06:17 Remember Home Meds: Home Meds Fluticasone Propionate [Flonase] 2 spray MEHUL DAILY 05/28/13 [History] Nitroglycerin [Nitrostat] 0.4 mg SL ASDIRECTED PRN 05/28/13 [History] tiZANidine HCl [Zanaflex] 4 mg PO BEDTIME 05/28/13 [History] Tiotropium [Spiriva HandiHaler] 1 puff INH DAILY 07/11/13 [History] Propranolol HCl [Propranolol] 120 mg PO BEDTIME 12/03/13 [History] Albuterol Sulfate [Proair Hfa] 2 puff INH Q4H PRN 05/09/14 [History] Budesonide/Formoterol [Symbicort 160-4.5 MCG] 2 puff INH BID 05/09/14 [History] Triamcinolone Acetonide [Triamcinolone Acetonide 0.1% Crm] 1 applic TOP BID PRN 05/09/14 [History] Minocycline [Minocin] 50 mg PO BEDTIME 12/21/14 [History] Folic Acid 1 mg PO DAILY 07/19/15 [History] Pantoprazole Sodium [Protonix] 40 mg PO BID 07/19/15 [History] Sucralfate 1 gm PO QID #120 tablet 05/22/16 [Rx] ClonazePAM [KlonoPIN] 0.5 mg PO BEDTIME 06/13/16 [History] Ondansetron [Ondansetron ODT] 4 mg PO Q4H PRN #30 tab.rapdis 09/15/16 [Rx] oxyCODONE 10 mg PO Q4HR PRN #30 tablet 09/15/16 [Rx] Fexofenadine/Pseudoephedrine [Colette-D 24 Hour Tablet] 1 tab PO DAILY 01/14/17 [History] Furosemide [Lasix] 20 mg PO DAILY 01/14/17 [History] Prochlorperazine Maleate [Compazine] 10 mg PO Q6HR PRN 02/26/17 [History] Past Medical History HEENT History: Reports: Allergic Rhinitis, Impaired Vision, Sinusitis Cardiovascular History: Reports: Hypertension Other Cardiovascular History: joint swelling Respiratory History: Reports: Asthma, COPD, SOB Gastrointestinal History: Reports: GERD, GI Bleed, Hemorrhoids, Hiatal Hernia Other Gastrointestinal History: esophageal stricture and trouble with spasm 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: , Prolapsed Uterus, Spontaneous Musculoskeletal History: Reports: Back Pain, Chronic, Fracture, Fibromyalgia, Neck Pain, Chronic, Osteoarthritis, RA, Other (See Below) Other Musculoskeletal History: cyst left elbow, scoliosis, Degenerative joint disease Neurological History: Reports: Headaches, Chronic, Migraines, Vertigo Psychiatric History: Reports: Anxiety, Depression, Eating Disorders, Other (See Below) Other Psychiatric History: Dehydration Endocrine/Metabolic History: Reports: Hypothyroidism, Other (See Below) Other Endocrine/Metabolic History: tested and went normal 4-5 years ago went normal so stopped thyroid medications Hematologic History: Reports: Anemia, B12 Deficiency, Blood Transfusion(s), Folic Acid, Iron Deficiency Dermatologic History: Reports: Eczema, Other (See Below) Other Dermatologic History: left eye rash of unknown origin - Infectious Disease History Infectious Disease History: Reports: Chicken Pox, Herpes, Measles, Mononucleosis , Mumps Other Infectious Disease History: anaplasmosis - Past Surgical History Head Surgeries/Procedures: Reports: None HEENT Surgical History: Reports: Oral Surgery GI Surgical History: Reports: Appendectomy, Bariatric Procedure, Cholecystectomy , Colonoscopy, EGD, Esophageal Dilatation, Hernia Repair/Other, Kathe Fundoplication, Other (See Below) Other GI Surgeries/Procedures: feeding tube Female Surgical History: Reports: Breast Implant, Hysterectomy, Tubal Ligation Musculoskeletal Surgical History: Reports: Other (See Below) Other Musculoskeletal Surgeries/Procedures:: left elbow Oncologic Surgical History: Reports: Biopsy of Breast, Other (See Below) Other Oncologic Surgeries/Procedures: left elbow bx = benign Dermatological Surgical History: Reports: Plastic Surgical Reconstruction/Repair Social & Family History - Family History Family Medical History: Noncontributory Oncologic: Reports: Breast - Tobacco Use Smoking Status *Q: Former Smoker Years of Tobacco use: 31 Packs/Tins Daily: 1 Used Tobacco, but Quit: Yes Month Tobacco Last Used: may 2011 Second Hand Smoke Exposure: No - Caffeine Use Caffeine Use: Reports: Coffee - Alcohol Use Days Per Week of Alcohol Use: 2 Number of Drinks Per Day: 2 Total Drinks Per Week: 4 - Recreational Drug Use Recreational Drug Use: No Drug Use in Last 12 Months: No Recreational Drug Type: Reports: Marijuana/Hashish ED ROS GENERAL - Review of Systems Review Of Systems: See Below Constitutional: Reports: No Symptoms HEENT: Reports: No Symptoms Respiratory: Reports: No Symptoms Cardiovascular: Reports: No Symptoms Endocrine: Reports: No Symptoms GI/Abdominal: Reports: Other ( gi bleeding. She has had upper abdomanal pain) : Reports: No Symptoms Musculoskeletal: Reports: No Symptoms Skin: Reports: No Symptoms ED EXAM, GENERAL - Physical Exam Exam: See Below Free Text/Narrative:: Pt has a history of gi bleeding. She has a history of peptic ulcer diease. Exam Limited By: No Limitations General Appearance: Alert, Mild Distress Ears: Normal TMs Nose: Normal Inspection Throat/Mouth: Normal Inspection Head: Atraumatic Neck: Normal Inspection Respiratory/Chest: No Respiratory Distress Cardiovascular: Regular Rate, Rhythm GI/Abdominal: Soft, Other ( tenderness in the upper abdoman. ) (Female) Exam: Deferred Rectal (Female) Exam: Other ( no masses were present. The stool was brown in color. It did not look bloody. ) Neurological: Alert, Oriented Psychiatric: Anxious, Other (pt is agitated. ) Course - Vital Signs Last Recorded V/S: Last Vital Signs Temp 36.1 C 04/17/17 15:29 Pulse 67 04/17/17 15:29 Resp 16 04/17/17 15:29 BP 107/73 10/19/17 15:29 Pulse Ox 100 04/17/17 15:29 - Orders/Labs/Meds Labs: Laboratory Tests 04/17/17 04/17/17 04/17/17 Range/Units 15:54 15:54 15:54 WBC 5.5 (4.5-11.0) K/uL RBC 3.99 (3.30-5.50) M/uL Hgb 12.2 D (12.0-15.0) g/dL Hct 36.5 (36.0-48.0) % MCV 92 (80-98) fL MCH 31 (27-31) pg MCHC 33 (32-36) % Plt Count 232 (150-400) K/uL Neut % (Auto) 70 H (36-66) % Lymph % (Auto) 22 L (24-44) % [place] % (Auto) 7 H (2-6) % Eos % (Auto) 1 L (2-4) % Baso % (Auto) 1 (0-1) % Sodium 140 (140-148) mmol/L Potassium 4.2 (3.6-5.2) mmol/L Chloride 101 (100-108) mmol/L Carbon Dioxide 32 (21-32) mmol/L Anion Gap 7.3 (5.0-14.0) mmol/L BUN 17 (7-18) mg/dL Creatinine 0.9 (0.6-1.0) mg/dL Est Cr Clr Drug Dosing 72.72 mL/min Estimated GFR (MDRD) > 60 (>60) Glucose 82 (74-106) mg/dL Calcium 8.1 L (8.5-10.1) mg/dL Total Bilirubin 0.4 (0.2-1.0) mg/dL AST 204 H (15-37) U/L ALT 130 H (12-78) U/L Alkaline Phosphatase 2389 H (46-116) U/L C-Reactive Protein (0.0-0.3) mg/dL Total Protein 7.3 (6.4-8.2) g/dL Albumin 3.4 (3.4-5.0) g/dL Globulin 3.9 H (2.3-3.5) g/dL Albumin/Globulin Ratio 0.9 L (1.2-2.2) Urine Color Urine Appearance Urine pH (4.5-8.0) Ur Specific [place] (1.008-1.030) Urine Protein (NEGATIVE) mg/dL Urine Glucose (UA) (NEGATIVE) mg/dL Urine Ketones (NEGATIVE) mg/dL Urine Occult Blood (NEGATIVE) Urine Nitrite (NEGATIVE) Urine Bilirubin (NEGATIVE) Urine Urobilinogen (NORMAL) mg/dL Ur Leukocyte Esterase (NEGATIVE) Urine RBC (0-5) Urine WBC (0-5) Ur Epithelial Cells Amorphous Sediment Urine Bacteria Urine Mucus Urine Opiates Screen (NEGATIVE) Ur Oxycodone Screen (NEGATIVE) Urine Methadone Screen (NEGATIVE) Ur Propoxyphene Screen (NEGATIVE) Ur Barbiturates Screen (NEGATIVE) Ur Tricyclics Screen (NEGATIVE) Ur Phencyclidine Scrn (NEGATIVE) Ur Amphetamine Screen (NEGATIVE) U Methamphetamines Scrn (NEGATIVE) Urine MDMA Screen (NEGATIVE) U Benzodiazepines Scrn (NEGATIVE) U Cocaine Metab Screen (NEGATIVE) U Marijuana (THC) Screen (NEGATIVE) Ethyl Alcohol 309 mg/dL 04/17/17 04/17/17 04/17/17 Range/Units 15:54 16:31 16:31 WBC (4.5-11.0) K/uL RBC (3.30-5.50) M/uL Hgb (12.0-15.0) g/dL Hct (36.0-48.0) % MCV (80-98) fL MCH (27-31) pg MCHC (32-36) % Plt Count (150-400) K/uL Neut % (Auto) (36-66) % Lymph % (Auto) (24-44) % [place] % (Auto) (2-6) % Eos % (Auto) (2-4) % Baso % (Auto) (0-1) % Sodium (140-148) mmol/L Potassium (3.6-5.2) mmol/L Chloride (100-108) mmol/L Carbon Dioxide (21-32) mmol/L Anion Gap (5.0-14.0) mmol/L BUN (7-18) mg/dL Creatinine (0.6-1.0) mg/dL Est Cr Clr Drug Dosing mL/min Estimated GFR (MDRD) (>60) Glucose (74-106) mg/dL Calcium (8.5-10.1) mg/dL Total Bilirubin (0.2-1.0) mg/dL AST (15-37) U/L ALT (12-78) U/L Alkaline Phosphatase (46-116) U/L C-Reactive Protein 0.28 (0.0-0.3) mg/dL Total Protein (6.4-8.2) g/dL Albumin (3.4-5.0) g/dL Globulin (2.3-3.5) g/dL Albumin/Globulin Ratio (1.2-2.2) Urine Color Yellow Urine Appearance Slightly cloudy Urine pH 8.0 (4.5-8.0) Ur Specific [place] 1.015 (1.008-1.030) Urine Protein Negative (NEGATIVE) mg/dL Urine Glucose (UA) Normal (NEGATIVE) mg/dL Urine Ketones Negative (NEGATIVE) mg/dL Urine Occult Blood Negative (NEGATIVE) Urine Nitrite Negative (NEGATIVE) Urine Bilirubin Negative (NEGATIVE) Urine Urobilinogen Normal (NORMAL) mg/dL Ur Leukocyte Esterase Negative (NEGATIVE) Urine RBC 0-5 (0-5) Urine WBC 0-5 (0-5) Ur Epithelial Cells Few Amorphous Sediment Moderate Urine Bacteria Few Urine Mucus Not seen Urine Opiates Screen Negative (NEGATIVE) Ur Oxycodone Screen Negative (NEGATIVE) Urine Methadone Screen Negative (NEGATIVE) Ur Propoxyphene Screen Negative (NEGATIVE) Ur Barbiturates Screen Negative (NEGATIVE) Ur Tricyclics Screen Negative (NEGATIVE) Ur Phencyclidine Scrn Negative (NEGATIVE) Ur Amphetamine Screen Negative (NEGATIVE) U Methamphetamines Scrn Negative (NEGATIVE) Urine MDMA Screen Negative (NEGATIVE) U Benzodiazepines Scrn Negative (NEGATIVE) U Cocaine Metab Screen Negative (NEGATIVE) U Marijuana (THC) Screen Negative (NEGATIVE) Ethyl Alcohol mg/dL Meds: Medications Discontinued Medications Generic Name Dose Route Start Last Admin Trade Name Freq PRN Reason Stop Dose Admin Sodium Chloride 1,000 mls @ 999 mls/hr 04/17/17 16:00 04/17/17 16:10 Normal Saline IV 999 mls/hr ASDIRECTED [facility] Administration - Re-Assessments/Exams Free Text/Narrative Re-Assessment/Exam: 04/17/17 18:48 pt has a very high alk phos which according to the pt was chronic. Departure - Departure Time of Disposition: 18:49 Disposition: DC/Tfer to Inpt Rehab Fac 62 Condition: Fair Clinical Impression: Elevated liver enzymes Acute alcohol intoxication Qualifiers: Complication of substance-induced condition: uncomplicated Qualified Code(s): F10.929 - Alcohol use, unspecified with intoxication, unspecified - Discharge Information Instructions: Alcohol Intoxication, [id number] Referrals: PCP,None [Primary Care Provider] - Forms: ED Department Discharge Care Plan Goals: discharge from ER, will be accepted to [facility] for [facility]patient Detox treatment for alcohol.
--- NOTE | 2017-04-17 19:31 | EDM.PDOC ---
ED HPI GENERAL MEDICAL PROBLEM - General Chief Complaint: General Stated Complaint: illness Time Seen by Provider: 04/17/17 18:40 Source of Information: Reports: Patient, Family History Limitations: Reports: Intoxication - History of Present Illness INITIAL COMMENTS - FREE TEXT/NARRATIVE: Pt has a history of gi bleeding. She has a history of peptic ulcer diease. Onset: Today, Other (pt hs been drinking heavily. She does have a history of peptic ulcer disease. ) Duration: Hour(s): Location: Reports: Abdomen Associated Symptoms: Reports: No Other Symptoms, Other (pt has made some suicidal threats. She has been hospitalized at [facility] in the past. ) - Related Data Allergies Allergy/AdvReac Type Severity Reaction Status Date / Time adhesive Allergy Rash Verified 02/28/17 06:17 codeine Allergy Cannot Verified 02/28/17 06:17 Remember hydromorphone Allergy Itching Verified 02/28/17 06:17 morphine Allergy Cannot Verified 02/28/17 06:17 Remember tramadol Allergy Itching Verified 02/28/17 06:17 ENVIRONMENTAL Allergy Cannot Uncoded 02/28/17 06:17 Remember Home Meds: Home Meds Fluticasone Propionate [Flonase] 2 spray MEHUL DAILY 05/28/13 [History] Nitroglycerin [Nitrostat] 0.4 mg SL ASDIRECTED PRN 05/28/13 [History] tiZANidine HCl [Zanaflex] 4 mg PO BEDTIME 05/28/13 [History] Tiotropium [Spiriva HandiHaler] 1 puff INH DAILY 07/11/13 [History] Propranolol HCl [Propranolol] 120 mg PO BEDTIME 12/03/13 [History] Albuterol Sulfate [Proair Hfa] 2 puff INH Q4H PRN 05/09/14 [History] Budesonide/Formoterol [Symbicort 160-4.5 MCG] 2 puff INH BID 05/09/14 [History] Triamcinolone Acetonide [Triamcinolone Acetonide 0.1% Crm] 1 applic TOP BID PRN 05/09/14 [History] Minocycline [Minocin] 50 mg PO BEDTIME 12/21/14 [History] Folic Acid 1 mg PO DAILY 07/19/15 [History] Pantoprazole Sodium [Protonix] 40 mg PO BID 07/19/15 [History] Sucralfate 1 gm PO QID #120 tablet 05/22/16 [Rx] ClonazePAM [KlonoPIN] 0.5 mg PO BEDTIME 06/13/16 [History] Ondansetron [Ondansetron ODT] 4 mg PO Q4H PRN #30 tab.rapdis 09/15/16 [Rx] oxyCODONE 10 mg PO Q4HR PRN #30 tablet 09/15/16 [Rx] Fexofenadine/Pseudoephedrine [Colette-D 24 Hour Tablet] 1 tab PO DAILY 01/14/17 [History] Furosemide [Lasix] 20 mg PO DAILY 01/14/17 [History] Prochlorperazine Maleate [Compazine] 10 mg PO Q6HR PRN 02/26/17 [History] Past Medical History HEENT History: Reports: Allergic Rhinitis, Impaired Vision, Sinusitis Cardiovascular History: Reports: Hypertension Other Cardiovascular History: joint swelling Respiratory History: Reports: Asthma, COPD, SOB Gastrointestinal History: Reports: GERD, GI Bleed, Hemorrhoids, Hiatal Hernia Other Gastrointestinal History: esophageal stricture and trouble with spasm 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: , Prolapsed Uterus, Spontaneous Musculoskeletal History: Reports: Back Pain, Chronic, Fracture, Fibromyalgia, Neck Pain, Chronic, Osteoarthritis, RA, Other (See Below) Other Musculoskeletal History: cyst left elbow, scoliosis, Degenerative joint disease Neurological History: Reports: Headaches, Chronic, Migraines, Vertigo Psychiatric History: Reports: Anxiety, Depression, Eating Disorders, Other (See Below) Other Psychiatric History: Dehydration Endocrine/Metabolic History: Reports: Hypothyroidism, Other (See Below) Other Endocrine/Metabolic History: tested and went normal 4-5 years ago went normal so stopped thyroid medications Hematologic History: Reports: Anemia, B12 Deficiency, Blood Transfusion(s), Folic Acid, Iron Deficiency Dermatologic History: Reports: Eczema, Other (See Below) Other Dermatologic History: left eye rash of unknown origin - Infectious Disease History Infectious Disease History: Reports: Chicken Pox, Herpes, Measles, Mononucleosis , Mumps Other Infectious Disease History: anaplasmosis - Past Surgical History Head Surgeries/Procedures: Reports: None HEENT Surgical History: Reports: Oral Surgery GI Surgical History: Reports: Appendectomy, Bariatric Procedure, Cholecystectomy , Colonoscopy, EGD, Esophageal Dilatation, Hernia Repair/Other, Kathe Fundoplication, Other (See Below) Other GI Surgeries/Procedures: feeding tube Female Surgical History: Reports: Breast Implant, Hysterectomy, Tubal Ligation Musculoskeletal Surgical History: Reports: Other (See Below) Other Musculoskeletal Surgeries/Procedures:: left elbow Oncologic Surgical History: Reports: Biopsy of Breast, Other (See Below) Other Oncologic Surgeries/Procedures: left elbow bx = benign Dermatological Surgical History: Reports: Plastic Surgical Reconstruction/Repair Social & Family History - Family History Family Medical History: Noncontributory Oncologic: Reports: Breast - Tobacco Use Smoking Status *Q: Former Smoker Years of Tobacco use: 31 Packs/Tins Daily: 1 Used Tobacco, but Quit: Yes Month Tobacco Last Used: may 2011 Second Hand Smoke Exposure: No - Caffeine Use Caffeine Use: Reports: Coffee - Alcohol Use Days Per Week of Alcohol Use: 2 Number of Drinks Per Day: 2 Total Drinks Per Week: 4 - Recreational Drug Use Recreational Drug Use: No Drug Use in Last 12 Months: No Recreational Drug Type: Reports: Marijuana/Hashish ED ROS GENERAL - Review of Systems Review Of Systems: See Below ED EXAM, GENERAL - Physical Exam Exam: See Below Free Text/Narrative:: Pt has a history of gi bleeding. She has a history of peptic ulcer diease. Exam Limited By: No Limitations General Appearance: Alert, Mild Distress Ears: Normal TMs Nose: Normal Inspection Throat/Mouth: Normal Inspection Head: Atraumatic Neck: Normal Inspection Respiratory/Chest: No Respiratory Distress Cardiovascular: Regular Rate, Rhythm GI/Abdominal: Soft, Other ( tenderness in the upper abdoman. ) Neurological: Alert, Oriented Psychiatric: Anxious, Other (pt is agitated. ) Course - Vital Signs Last Recorded V/S: Last Vital Signs Temp 36.1 C 04/17/17 15:29 Pulse 67 04/17/17 15:29 Resp 16 04/17/17 15:29 BP 107/73 04/17/17 15:29 Pulse Ox 100 04/17/17 15:29 - Orders/Labs/Meds Orders: Active Orders 24 hr Category Date Time Status Abdomen Ltd [US] Stat Exams 04/17/17 17:14 Taken OCCULT BLOOD DIAGNOSTIC [OP] Stat Lab 04/17/17 19:26 Ordered Sodium Chloride 0.9% [Normal Saline] 1,000 ml Med 04/17/17 16:00 Active IV ASDIRECTED Medication Orders Sodium Chloride (Normal Saline) 1,000 mls @ 999 mls/hr IV ASDIRECTED [facility] Last Admin: 04/17/17 16:10 Dose: 999 mls/hr Labs: Laboratory Tests 04/17/17 04/17/17 04/17/17 Range/Units 15:54 15:54 15:54 WBC 5.5 (4.5-11.0) K/uL RBC 3.99 (3.30-5.50) M/uL Hgb 12.2 D (12.0-15.0) g/dL Hct 36.5 (36.0-48.0) % MCV 92 (80-98) fL MCH 31 (27-31) pg MCHC 33 (32-36) % Plt Count 232 (150-400) K/uL Neut % (Auto) 70 H (36-66) % Lymph % (Auto) 22 L (24-44) % [place] % (Auto) 7 H (2-6) % Eos % (Auto) 1 L (2-4) % Baso % (Auto) 1 (0-1) % Sodium 140 (140-148) mmol/L Potassium 4.2 (3.6-5.2) mmol/L Chloride 101 (100-108) mmol/L Carbon Dioxide 32 (21-32) mmol/L Anion Gap 7.3 (5.0-14.0) mmol/L BUN 17 (7-18) mg/dL Creatinine 0.9 (0.6-1.0) mg/dL Est Cr Clr Drug Dosing 72.72 mL/min Estimated GFR (MDRD) > 60 (>60) Glucose 82 (74-106) mg/dL Calcium 8.1 L (8.5-10.1) mg/dL Total Bilirubin 0.4 (0.2-1.0) mg/dL AST 204 H (15-37) U/L ALT 130 H (12-78) U/L Alkaline Phosphatase 2389 H (46-116) U/L C-Reactive Protein (0.0-0.3) mg/dL Total Protein 7.3 (6.4-8.2) g/dL Albumin 3.4 (3.4-5.0) g/dL Globulin 3.9 H (2.3-3.5) g/dL Albumin/Globulin Ratio 0.9 L (1.2-2.2) Urine Color Urine Appearance Urine pH (4.5-8.0) Ur Specific [place] (1.008-1.030) Urine Protein (NEGATIVE) mg/dL Urine Glucose (UA) (NEGATIVE) mg/dL Urine Ketones (NEGATIVE) mg/dL Urine Occult Blood (NEGATIVE) Urine Nitrite (NEGATIVE) Urine Bilirubin (NEGATIVE) Urine Urobilinogen (NORMAL) mg/dL Ur Leukocyte Esterase (NEGATIVE) Urine RBC (0-5) Urine WBC (0-5) Ur Epithelial Cells Amorphous Sediment Urine Bacteria Urine Mucus Urine Opiates Screen (NEGATIVE) Ur Oxycodone Screen (NEGATIVE) Urine Methadone Screen (NEGATIVE) Ur Propoxyphene Screen (NEGATIVE) Ur Barbiturates Screen (NEGATIVE) Ur Tricyclics Screen (NEGATIVE) Ur Phencyclidine Scrn (NEGATIVE) Ur Amphetamine Screen (NEGATIVE) U Methamphetamines Scrn (NEGATIVE) Urine MDMA Screen (NEGATIVE) U Benzodiazepines Scrn (NEGATIVE) U Cocaine Metab Screen (NEGATIVE) U Marijuana (THC) Screen (NEGATIVE) Ethyl Alcohol 309 mg/dL 04/17/17 04/17/17 04/17/17 Range/Units 15:54 16:31 16:31 WBC (4.5-11.0) K/uL RBC (3.30-5.50) M/uL Hgb (12.0-15.0) g/dL Hct (36.0-48.0) % MCV (80-98) fL MCH (27-31) pg MCHC (32-36) % Plt Count (150-400) K/uL Neut % (Auto) (36-66) % Lymph % (Auto) (24-44) % [place] % (Auto) (2-6) % Eos % (Auto) (2-4) % Baso % (Auto) (0-1) % Sodium (140-148) mmol/L Potassium (3.6-5.2) mmol/L Chloride (100-108) mmol/L Carbon Dioxide (21-32) mmol/L Anion Gap (5.0-14.0) mmol/L BUN (7-18) mg/dL Creatinine (0.6-1.0) mg/dL Est Cr Clr Drug Dosing mL/min Estimated GFR (MDRD) (>60) Glucose (74-106) mg/dL Calcium (8.5-10.1) mg/dL Total Bilirubin (0.2-1.0) mg/dL AST (15-37) U/L ALT (12-78) U/L Alkaline Phosphatase (46-116) U/L C-Reactive Protein 0.28 (0.0-0.3) mg/dL Total Protein (6.4-8.2) g/dL Albumin (3.4-5.0) g/dL Globulin (2.3-3.5) g/dL Albumin/Globulin Ratio (1.2-2.2) Urine Color Yellow Urine Appearance Slightly cloudy Urine pH 8.0 (4.5-8.0) Ur Specific [place] 1.015 (1.008-1.030) Urine Protein Negative (NEGATIVE) mg/dL Urine Glucose (UA) Normal (NEGATIVE) mg/dL Urine Ketones Negative (NEGATIVE) mg/dL Urine Occult Blood Negative (NEGATIVE) Urine Nitrite Negative (NEGATIVE) Urine Bilirubin Negative (NEGATIVE) Urine Urobilinogen Normal (NORMAL) mg/dL Ur Leukocyte Esterase Negative (NEGATIVE) Urine RBC 0-5 (0-5) Urine WBC 0-5 (0-5) Ur Epithelial Cells Few Amorphous Sediment Moderate Urine Bacteria Few Urine Mucus Not seen Urine Opiates Screen Negative (NEGATIVE) Ur Oxycodone Screen Negative (NEGATIVE) Urine Methadone Screen Negative (NEGATIVE) Ur Propoxyphene Screen Negative (NEGATIVE) Ur Barbiturates Screen Negative (NEGATIVE) Ur Tricyclics Screen Negative (NEGATIVE) Ur Phencyclidine Scrn Negative (NEGATIVE) Ur Amphetamine Screen Negative (NEGATIVE) U Methamphetamines Scrn Negative (NEGATIVE) Urine MDMA Screen Negative (NEGATIVE) U Benzodiazepines Scrn Negative (NEGATIVE) U Cocaine Metab Screen Negative (NEGATIVE) U Marijuana (THC) Screen Negative (NEGATIVE) Ethyl Alcohol mg/dL Meds: Medications Generic Name Dose Route Start Last Admin Trade Name Freq PRN Reason Stop Dose Admin Sodium Chloride 1,000 mls @ 999 mls/hr 04/17/17 16:00 04/17/17 16:10 Normal Saline IV 999 mls/hr ASDIRECTED [facility] Administration Departure - Departure Time of Disposition: 19:28 Disposition: DC/Tfer to Inpt Rehab Fac 62 Condition: Fair Clinical Impression: Acute alcohol intoxication, Elevated liver enzymes - Discharge Information Referrals: PCP,None [Primary Care Provider] - Forms: ED Department Discharge Care Plan Goals: discharge from ER, will be accepted to [place] for Inpatient Detox treatment for alcohol. - Problem List & Annotations (1) Chronic alcohol dependence, continuous SNOMED Code(s): 754771648 Code(s): F10.20 - ALCOHOL DEPENDENCE, UNCOMPLICATED Status: Acute Priority: High Current Visit: Yes (2) Acute alcohol intoxication SNOMED Code(s): 96013223 Code(s): F10.929 - ALCOHOL USE, UNSPECIFIED WITH INTOXICATION, UNSPECIFIED Status: Acute Priority: High Current Visit: Yes Qualifiers: Complication of substance-induced condition: uncomplicated Qualified Code(s ): F10.929 - Alcohol use, unspecified with intoxication, unspecified - Problem List Review Problem List Initiated/Reviewed/Updated: Yes - Assessment/Plan Plan: discharge from ER, will be accepted to [place] for Inpatient Detox treatment for alcohol.
== END 2017-04-17 19:45 ==
LOC: JP.ED 15:26
DX: F10.120 Alcohol abuse with intoxication, uncomplicated (principal); R79.89 Other specified abnormal findings of blood chemistry; I10 Essential (primary) hypertension; Z88.5 Allergy status to narcotic agent; Z79.899 Other long term (current) drug therapy; Z87.891 Personal history of nicotine dependence
CPT/HCPCS: 36415; 76705; 80053; 80305; 81001; 82272; 85025; 86140; 96360; 99285; G0480; J7040

== ENCOUNTER 2017-04-22 15:37 | Emergency (ER) | payer MEDICAID ==
[2017-04-22 15:44] VITALS: BP 114/76
[2017-04-22] MEDS ORDERED: LORazepam 1 MG Tab PO ONE (16:52)
--- NOTE | 2017-04-22 16:58 | EDM.PDOC ---
ED HPI GENERAL MEDICAL PROBLEM - General Chief Complaint: Drug or Alcohol Abuse Stated Complaint: MEDICAL [facility]IA [facility] Time Seen by Provider: 04/22/17 16:52 Source of Information: Reports: Patient, Family History Limitations: Reports: No Limitations - History of Present Illness INITIAL COMMENTS - FREE TEXT/NARRATIVE: pt arrived with a history of not going to [place] for detox because she thought she couldnt, because she did not have a Rule 25. Onset: Gradual, Other (Pt ) Duration: Day(s): Location: Reports: Other (pt has been drinking) Associated Symptoms: Reports: No Other Symptoms - Related Data Allergies Allergy/AdvReac Type Severity Reaction Status Date / Time adhesive Allergy Rash Verified 04/22/17 15:48 codeine Allergy Cannot Verified 04/22/17 15:48 Remember hydromorphone Allergy Itching Verified 04/22/17 15:48 morphine Allergy Cannot Verified 04/22/17 15:48 Remember tramadol Allergy Itching Verified 04/22/17 15:48 ENVIRONMENTAL Allergy Cannot Uncoded 04/22/17 15:48 Remember Home Meds: Home Meds Fluticasone Propionate [Flonase] 2 spray MEHUL DAILY 05/28/13 [History] Nitroglycerin [Nitrostat] 0.4 mg SL ASDIRECTED PRN 05/28/13 [History] tiZANidine HCl [Zanaflex] 4 mg PO BEDTIME 05/28/13 [History] Tiotropium [Spiriva HandiHaler] 1 puff INH DAILY 07/11/13 [History] Propranolol HCl [Propranolol] 120 mg PO BEDTIME 12/03/13 [History] Albuterol Sulfate [Proair Hfa] 2 puff INH Q4H PRN 05/09/14 [History] Budesonide/Formoterol [Symbicort 160-4.5 MCG] 2 puff INH BID 05/09/14 [History] Triamcinolone Acetonide [Triamcinolone Acetonide 0.1% Crm] 1 applic TOP BID PRN 05/09/14 [History] Minocycline [Minocin] 50 mg PO BEDTIME 12/21/14 [History] Folic Acid 1 mg PO DAILY 07/19/15 [History] Pantoprazole Sodium [Protonix] 40 mg PO BID 07/19/15 [History] Sucralfate 1 gm PO QID #120 tablet 05/22/16 [Rx] ClonazePAM [KlonoPIN] 0.5 mg PO BEDTIME 06/13/16 [History] Ondansetron [Ondansetron ODT] 4 mg PO Q4H PRN #30 tab.rapdis 09/15/16 [Rx] oxyCODONE 10 mg PO Q4HR PRN #30 tablet 09/15/16 [Rx] Fexofenadine/Pseudoephedrine [Colette-D 24 Hour Tablet] 1 tab PO DAILY 01/14/17 [History] Furosemide [Lasix] 20 mg PO DAILY 01/14/17 [History] Prochlorperazine Maleate [Compazine] 10 mg PO Q6HR PRN 02/26/17 [History] Past Medical History HEENT History: Reports: Allergic Rhinitis, Impaired Vision, Sinusitis Cardiovascular History: Reports: Hypertension Other Cardiovascular History: joint swelling Respiratory History: Reports: Asthma, COPD, SOB Gastrointestinal History: Reports: GERD, GI Bleed, Hemorrhoids, Hiatal Hernia Other Gastrointestinal History: esophageal stricture and trouble with spasm 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: , Prolapsed Uterus, Spontaneous Musculoskeletal History: Reports: Back Pain, Chronic, Fracture, Fibromyalgia, Neck Pain, Chronic, Osteoarthritis, RA, Other (See Below) Other Musculoskeletal History: cyst left elbow, scoliosis, Degenerative joint disease Neurological History: Reports: Headaches, Chronic, Migraines, Vertigo Psychiatric History: Reports: Anxiety, Depression, Eating Disorders, Other (See Below) Other Psychiatric History: Dehydration Endocrine/Metabolic History: Reports: Hypothyroidism, Other (See Below) Other Endocrine/Metabolic History: tested and went normal 4-5 years ago went normal so stopped thyroid medications Hematologic History: Reports: Anemia, B12 Deficiency, Blood Transfusion(s), Folic Acid, Iron Deficiency Dermatologic History: Reports: Eczema, Other (See Below) Other Dermatologic History: left eye rash of unknown origin - Infectious Disease History Infectious Disease History: Reports: Chicken Pox, Herpes, Measles, Mononucleosis , Mumps Other Infectious Disease History: anaplasmosis - Past Surgical History Head Surgeries/Procedures: Reports: None HEENT Surgical History: Reports: Oral Surgery GI Surgical History: Reports: Appendectomy, Bariatric Procedure, Cholecystectomy , Colonoscopy, EGD, Esophageal Dilatation, Hernia Repair/Other, Kathe Fundoplication, Other (See Below) Other GI Surgeries/Procedures: feeding tube Female Surgical History: Reports: Breast Implant, Hysterectomy, Tubal Ligation Musculoskeletal Surgical History: Reports: Other (See Below) Other Musculoskeletal Surgeries/Procedures:: left elbow Oncologic Surgical History: Reports: Biopsy of Breast, Other (See Below) Other Oncologic Surgeries/Procedures: left elbow bx = benign Dermatological Surgical History: Reports: Plastic Surgical Reconstruction/Repair Social & Family History - Family History Family Medical History: Noncontributory Oncologic: Reports: Breast - Tobacco Use Smoking Status *Q: Former Smoker Years of Tobacco use: 30 Packs/Tins Daily: 1 Used Tobacco, but Quit: No Month Tobacco Last Used: may 2011 Second Hand Smoke Exposure: No - Caffeine Use Caffeine Use: Reports: None - Alcohol Use Days Per Week of Alcohol Use: 7 Number of Drinks Per Day: 8 Total Drinks Per Week: 56 Date of Last Drink: 04/22/17 Time of Last Drink: 14:00 - Recreational Drug Use Recreational Drug Use: Yes Drug Use in Last 12 Months: No Recreational Drug Type: Reports: Marijuana/Hashish ED ROS GENERAL - Review of Systems Review Of Systems: See Below Constitutional: Reports: No Symptoms HEENT: Reports: No Symptoms Respiratory: Reports: No Symptoms Cardiovascular: Reports: No Symptoms Endocrine: Reports: No Symptoms GI/Abdominal: Reports: No Symptoms : Reports: No Symptoms Musculoskeletal: Reports: No Symptoms Skin: Reports: No Symptoms Neurological: Reports: Other (pt is intoxicated. ) Psychiatric: Reports: Anxiety, Other (pt is withdrawing from etoh) - Physical Exam Exam: See Below Text/Narrative:: pt arrived quite emotional and stating that she needs help to quite drinking. She has been drinking a large amount of wine and vodka. Exam Limited By: No Limitations General Appearance: Alert, Anxious, Other (pupils equal and reactive. ) Ears: Normal TMs Nose: Normal Inspection Throat/Mouth: Normal Inspection Head Exam: Atraumatic Neck: Normal Inspection Respiratory/Chest: No Respiratory Distress Cardiovascular: Regular Rate, Rhythm GI/Abdominal: Soft, Non-Tender, Other ( mild epigastric tenderness. ) (Female) Exam: Deferred Rectal (Female) Exam: Deferred Neuro Exam (Abbreviated): Alert, Oriented, Normal Cognition Back Exam: Normal Inspection Extremities: Normal Inspection Psychiatric: Normal Affect Course - Vital Signs Last Recorded V/S: Last Vital Signs Temp 36.7 C 04/22/17 15:39 Pulse 58 L 04/22/17 15:39 Resp 18 04/22/17 15:39 BP 114/76 04/22/17 15:39 Pulse Ox 97 04/22/17 15:39 - Orders/Labs/Meds Orders: Active Orders 24 hr Category Date Time Status DRUG SCREEN, URINE [URCHEM] Stat Lab 04/22/17 17:19 Ordered UA W/MICROSCOPIC [URIN] Urgent Lab 04/22/17 17:19 Ordered Labs: Laboratory Tests 04/22/17 04/22/17 04/22/17 Range/Units 16:23 16:23 16:23 WBC 5.6 (4.5-11.0) K/uL RBC 3.06 L (3.30-5.50) M/uL Hgb 9.4 L D (12.0-15.0) g/dL Hct 29.7 L (36.0-48.0) % MCV 97 (80-98) fL MCH 31 (27-31) pg MCHC 32 (32-36) % Plt Count 197 (150-400) K/uL Neut % (Auto) 76 H (36-66) % Lymph % (Auto) 16 L (24-44) % Ashley % (Auto) 8 H (2-6) % Eos % (Auto) 1 L (2-4) % Baso % (Auto) 1 (0-1) % Sodium 143 (140-148) mmol/L Potassium 4.7 (3.6-5.2) mmol/L Chloride 108 (100-108) mmol/L Carbon Dioxide 29 (21-32) mmol/L Anion Gap 6.1 (5.0-14.0) mmol/L BUN 7 D (7-18) mg/dL Creatinine 0.8 (0.6-1.0) mg/dL Est Cr Clr Drug Dosing 65.53 mL/min Estimated GFR (MDRD) > 60 (>60) Glucose 88 (74-106) mg/dL Calcium 8.4 L (8.5-10.1) mg/dL Total Bilirubin 0.4 (0.2-1.0) mg/dL AST 155 H (15-37) U/L ALT 119 H (12-78) U/L Alkaline Phosphatase 2108 H (46-116) U/L Total Protein 6.4 (6.4-8.2) g/dL Albumin 3.1 L (3.4-5.0) g/dL Globulin 3.3 (2.3-3.5) g/dL Albumin/Globulin Ratio 0.9 L (1.2-2.2) Ethyl Alcohol 233 mg/dL Meds: Medications Discontinued Medications Generic Name Dose Route Start Last Admin Trade Name Brook PRN Reason Stop Dose Admin Lorazepam 1 mg 04/22/17 16:52 04/22/17 17:00 Ativan PO 04/22/17 16:53 1 mg ONETIME ONE Administration - Re-Assessments/Exams Free Text/Narrative Re-Assessment/Exam: 04/22/17 17:03 pt has etoh level of 2.2. Her hg is 9.4 which is lower than the last vist. 04/22/17 17:04 Departure - Departure Time of Disposition: 17:28 Disposition: DC/Tfer to Psych Hosp/Unit 65 Condition: Fair Clinical Impression: Intoxication, Anxiety, Peptic disease - Discharge Information Referrals: PCP,None [Primary Care Provider] - Forms: ED Department Discharge Care Plan Goals: push fluids, Go To [place] [facility] - My Orders Last 24 Hours: My Active Orders 04/22/17 17:19 DRUG SCREEN, URINE [URCHEM] Stat UA W/MICROSCOPIC [URIN] Urgent - Assessment/Plan Last 24 Hours: My Active Orders 04/22/17 17:19 DRUG SCREEN, URINE [URCHEM] Stat UA W/MICROSCOPIC [URIN] Urgent
== END 2017-04-22 18:00 ==
LOC: JP.ED 15:37
DX: F10.129 Alcohol abuse with intoxication, unspecified (principal); F41.9 Anxiety disorder, unspecified; K30 Functional dyspepsia; Z87.891 Personal history of nicotine dependence; I10 Essential (primary) hypertension; J45.909 Unspecified asthma, uncomplicated; Z79.899 Other long term (current) drug therapy; Z91.09 Other allergy status, other than to drugs and biological substances; Z88.5 Allergy status to narcotic agent; Z88.6 Allergy status to analgesic agent
CPT/HCPCS: 36415; 80053; 80305; 81001; 85025; 99285; A9270; G0480

== ENCOUNTER 2017-09-24 13:08 | Emergency (ER) | payer MEDICAID ==
--- NOTE | 2017-09-24 14:36 | EDM.PDOC ---
ED HPI GENERAL MEDICAL PROBLEM - General Chief Complaint: Gastrointestinal Problem Stated Complaint: INTERNAL BLEEDING? Time Seen by Provider: 09/24/17 14:20 Source of Information: Reports: Patient, Old Records, RN History Limitations: Reports: No Limitations - History of Present Illness INITIAL COMMENTS - FREE TEXT/NARRATIVE: 52 yo female presents with a couple day hx of dark stools. No vomiting. Some weakness. Has a pHx of gastric ulcer and is currently taking omeprazole bid and Carafate QID. She has not missed any of these doses. Says no one can figure out why she is getting these ulcers. Did not call the clinic before coming to the ER. Onset: Gradual Onset Date: 09/22/17 Duration: Day(s):, Waxing/Waning Location: Reports: Abdomen (no pain) Severity: Mild Improves with: Reports: None Worsens with: Reports: Other (unknown) Context: Reports: Other (PHx of ulcers and alcohol abuse.) Associated Symptoms: Reports: Malaise, Weakness. 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 meds.) Abdominal Pain Score (Numeric/FACES): 7 - Related Data Allergies Allergy/AdvReac Type Severity Reaction Status Date / Time adhesive Allergy Rash Verified 04/22/17 15:48 codeine Allergy Cannot Verified 04/22/17 15:48 Remember hydromorphone Allergy Itching Verified 04/22/17 15:48 morphine Allergy Cannot Verified 04/22/17 15:48 Remember tramadol Allergy Itching Verified 04/22/17 15:48 ENVIRONMENTAL Allergy Cannot Uncoded 04/22/17 15:48 Remember Home Meds: Home Meds Fluticasone Propionate [Flonase] 2 spray MEHUL DAILY 05/28/13 [History] Nitroglycerin [Nitrostat] 0.4 mg SL ASDIRECTED PRN 05/28/13 [History] tiZANidine HCl [Zanaflex] 4 mg PO BEDTIME 05/28/13 [History] Tiotropium [Spiriva HandiHaler] 1 puff INH DAILY 07/11/13 [History] Propranolol HCl [Propranolol] 120 mg PO BEDTIME 12/03/13 [History] Albuterol Sulfate [Proair Hfa] 2 puff INH Q4H PRN 05/09/14 [History] Budesonide/Formoterol [Symbicort 160-4.5 MCG] 2 puff INH BID 05/09/14 [History] Triamcinolone Acetonide [Triamcinolone Acetonide 0.1% Crm] 1 applic TOP BID PRN 05/09/14 [History] Minocycline [Minocin] 50 mg PO BEDTIME 12/21/14 [History] Folic Acid 1 mg PO DAILY 07/19/15 [History] Pantoprazole Sodium [Protonix] 40 mg PO BID 07/19/15 [History] Sucralfate 1 gm PO QID #120 tablet 05/22/16 [Rx] ClonazePAM [KlonoPIN] 0.5 mg PO BEDTIME 06/13/16 [History] Ondansetron [Ondansetron ODT] 4 mg PO Q4H PRN #30 tab.rapdis 09/15/16 [Rx] oxyCODONE 10 mg PO Q4HR PRN #30 tablet 09/15/16 [Rx] Fexofenadine/Pseudoephedrine [Colette-D 24 Hour Tablet] 1 tab PO DAILY 01/14/17 [History] Furosemide [Lasix] 20 mg PO DAILY 01/14/17 [History] Prochlorperazine Maleate [Compazine] 10 mg PO Q6HR PRN 02/26/17 [History] Past Medical History HEENT History: Reports: Allergic Rhinitis, Impaired Vision, Sinusitis Other HEENT History: glasses Cardiovascular History: Reports: Aneurysm, Angina, Hypertension, CT, SOB on Exertion Other Cardiovascular History: joint swelling Respiratory History: Reports: Asthma, Bronchitis, Recurrent, COPD, SOB Gastrointestinal History: Reports: Gastritis, GERD, GI Bleed, Hemorrhoids, Hiatal Hernia, Inflammatory Bowel Disease Other Gastrointestinal History: esophageal stricture and trouble with spasm 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: , Prolapsed Uterus, Spontaneous Musculoskeletal History: Reports: Back Pain, Chronic, Fracture, Fibromyalgia, Neck Pain, Chronic, Osteoarthritis, RA, Other (See Below) Other Musculoskeletal History: cyst left elbow, scoliosis, Degenerative joint disease Neurological History: Reports: Headaches, Chronic, Migraines, Vertigo Psychiatric History: Reports: Anxiety, Depression, Eating Disorders, Other (See Below) Other Psychiatric History: Dehydration Endocrine/Metabolic History: Reports: Hypothyroidism, Other (See Below) Other Endocrine/Metabolic History: tested and went normal 4-5 years ago went normal so stopped thyroid medications Hematologic History: Reports: Anemia, B12 Deficiency, Blood Transfusion(s), Folic Acid, Iron Deficiency Dermatologic History: Reports: Eczema, Other (See Below) Other Dermatologic History: left eye rash of unknown origin - Infectious Disease History Infectious Disease History: Reports: C-Difficile, Influenza Other Infectious Disease History: anaplasmosis - Past Surgical History Head Surgeries/Procedures: Reports: None HEENT Surgical History: Reports: Oral Surgery GI Surgical History: Reports: Appendectomy, Bariatric Procedure, Cholecystectomy , Colonoscopy, EGD, Esophageal Dilatation, Hernia Repair/Other, Kathe Fundoplication, Other (See Below) Other GI Surgeries/Procedures: feeding tube Female Surgical History: Reports: Breast Implant, Cystectomy, D&C, Hysterectomy, Oophorectomy, Tubal Ligation Musculoskeletal Surgical History: Reports: Other (See Below) Other Musculoskeletal Surgeries/Procedures:: left elbow Oncologic Surgical History: Reports: Biopsy of Breast, Other (See Below) Other Oncologic Surgeries/Procedures: left elbow bx = benign Dermatological Surgical History: Reports: Plastic Surgical Reconstruction/Repair Social & Family History - Family History Family Medical History: Noncontributory Oncologic: Reports: Breast - Tobacco Use Smoking Status *Q: Former Smoker Years of Tobacco use: 30 Packs/Tins Daily: 1 Used Tobacco, but Quit: Yes Month/Year Tobacco Last Used: 6 years ago Second Hand Smoke Exposure: No - Caffeine Use Caffeine Use: Reports: None - Alcohol Use Days Per Week of Alcohol Use: 7 Number of Drinks Per Day: 8 Total Drinks Per Week: 56 Date of Last Drink: 09/19/17 - Recreational Drug Use Recreational Drug Use: No Drug Use in Last 12 Months: No Recreational Drug Type: Reports: Marijuana/Hashish ED ROS GENERAL - Review of Systems Review Of Systems: See Below Constitutional: Reports: Weakness HEENT: Reports: No Symptoms Respiratory: Reports: No Symptoms Cardiovascular: Reports: No Symptoms Endocrine: Reports: No Symptoms GI/Abdominal: Reports: Black Stool, Melena. Denies: Abdominal Pain, Anorexia, Constipation, Diarrhea, Decreased Appetite, Distension, Flatus, Hematemesis, Hematochezia, Nausea, Vomiting : Reports: No Symptoms Musculoskeletal: Reports: No Symptoms Skin: Reports: No Symptoms Neurological: Reports: No Symptoms Psychiatric: Reports: No Symptoms ED EXAM, GI/ABD - Physical Exam Exam: See Below Exam Limited By: No Limitations General Appearance: Alert, WD/WN, No Apparent Distress Eyes: Bilateral: Normal Appearance Ears: Normal External Exam, Normal Canal, Hearing Grossly Normal, Normal TMs Nose: Normal Inspection, Normal Mucosa, No Blood Throat/Mouth: Normal Inspection, Normal Lips, Normal Oropharynx, Normal Voice, No Airway Compromise Head: Atraumatic, Normocephalic Neck: Normal Inspection, Supple, Non-Tender Respiratory/Chest: No Respiratory Distress, Lungs Clear, Normal Breath Sounds, No Accessory Muscle Use Cardiovascular: Regular Rate, Rhythm, No Edema GI/Abdominal Exam: Soft, Non-Tender, No Distention, Abnormal Bowel Sounds ( increased) Back Exam: Normal Inspection. No: CVA Tenderness (R), CVA Tenderness (L) Extremities: Normal Inspection, Normal Range of Motion, Non-Tender, No Pedal Edema Neurological: Alert, Oriented, CN II-XII Intact, Normal Cognition, No Motor/ Sensory Deficits Psychiatric: Normal Affect, Normal Mood Skin Exam: Warm, Dry, Intact, Normal Color, No Rash Lymphatic: No Adenopathy Course - Vital Signs Text/Narrative:: Accepted in transfer by Dr. Jonas at [address] [place] [address]. Last Recorded V/S: Last Vital Signs Temp 36.6 C 09/24/17 14:16 Pulse 116 H 09/24/17 14:16 Resp 17 09/24/17 14:16 BP 118/85 09/24/17 14:16 Pulse Ox 100 09/24/17 14:16 Orthostatic Blood Pressure [ 115/83 Standing] Orthostatic Blood Pressure [ 121/87 Sitting] Orthostatic Blood Pressure [ 120/82 Supine] - Orders/Labs/Meds Orders: Active Orders 24 hr Category Date Time Status Orthostatic Vital Signs [RC] ASDIRECTED Care 09/24/17 14:32 Active HELICOBACTER PYLORI AG, STOOL [REF] Routine Lab 09/24/17 14:32 Ordered Hemoccult [OCCULT BLOOD DIAGNOSTIC] [OP] Stat Lab 09/24/17 15:36 Ordered UA W/MICROSCOPIC [URIN] Stat Lab 09/24/17 14:31 Ordered Lactated Ringers [Ringers, Lactated] 1,000 ml Med 09/24/17 14:45 Active IV ASDIRECTED Medication Orders Lactated Ringer's (Ringers, Lactated) 1,000 mls @ 500 mls/hr IV ASDIRECTED MIKE Last Admin: 09/24/17 15:48 Dose: 500 mls/hr Labs: Laboratory Tests 09/24/17 09/24/17 09/24/17 Range/Units 14:31 14:31 14:41 WBC 4.5 (4.5-11.0) K/uL RBC 2.83 L (3.30-5.50) M/uL Hgb 7.6 L (12.0-15.0) g/dL Hct 24.3 L (36.0-48.0) % MCV 86 (80-98) fL MCH 27 (27-31) pg MCHC 31 L (32-36) % Plt Count 166 (150-400) K/uL Sodium 139 L (140-148) mmol/L Potassium 3.3 L (3.6-5.2) mmol/L Chloride 103 (100-108) mmol/L Carbon Dioxide 24 (21-32) mmol/L Anion Gap 15.3 H (5.0-14.0) mmol/L BUN 18 D (7-18) mg/dL Creatinine 0.9 (0.6-1.0) mg/dL Est Cr Clr Drug Dosing 58.25 mL/min Estimated GFR (MDRD) > 60 (>60) Glucose 104 (74-106) mg/dL Calcium 8.8 (8.5-10.1) mg/dL Total Bilirubin 0.8 D (0.2-1.0) mg/dL AST 105 H (15-37) U/L ALT 65 (12-78) U/L Alkaline Phosphatase > 1000 H (46-116) U/L Total Protein 6.1 L (6.4-8.2) g/dL Albumin 3.0 L (3.4-5.0) g/dL Globulin 3.1 (2.3-3.5) g/dL Albumin/Globulin Ratio 1.0 L (1.2-2.2) Ethyl Alcohol < 3 mg/dL Meds: Medications Generic Name Dose Route Start Last Admin Trade Name Freq PRN Reason Stop Dose Admin Lactated Ringer's 1,000 mls @ 500 mls/hr 09/24/17 14:45 09/24/17 15:48 Ringers, Lactated IV 500 mls/hr ASDIRECTED MIKE Administration Departure - Departure Time of Disposition: 17:00 Disposition: DC/Tfer to Acute Hospital 02 Condition: Fair Clinical Impression: GI bleed Qualifiers: GI bleed type/associated pathology: melena Qualified Code(s): K92.1 - Melena Anemia Qualifiers: Anemia type: unspecified type Qualified Code(s): D64.9 - Anemia, unspecified - Discharge Information Referrals: Obinna Clarke MD [Primary Care Provider] - Forms: ED Department Discharge - My Orders Last 24 Hours: My Active Orders 09/24/17 14:31 UA W/MICROSCOPIC [URIN] Stat 09/24/17 14:32 Orthostatic Vital Signs [RC] ASDIRECTED HELICOBACTER PYLORI AG, STOOL [REF] Routine 09/24/17 14:45 Lactated Ringers [Ringers, Lactated] 1,000 ml IV ASDIRECTED 09/24/17 15:36 Hemoccult [OCCULT BLOOD DIAGNOSTIC] [OP] Stat - Assessment/Plan Last 24 Hours: My Active Orders 09/24/17 14:31 UA W/MICROSCOPIC [URIN] Stat 09/24/17 14:32 Orthostatic Vital Signs [RC] ASDIRECTED HELICOBACTER PYLORI AG, STOOL [REF] Routine 09/24/17 14:45 Lactated Ringers [Ringers, Lactated] 1,000 ml IV ASDIRECTED 09/24/17 15:36 Hemoccult [OCCULT BLOOD DIAGNOSTIC] [OP] Stat
[2017-09-24] MEDS ORDERED: Lactated Ringers 1,000 ML IV SCH (14:45)
[2017-09-24 17:01] VITALS: BP 125/86
== END 2017-09-24 17:30 ==
LOC: JP.ED 13:08
DX: K92.1 Melena (principal); D64.9 Anemia, unspecified; I10 Essential (primary) hypertension; K21.9 Gastro-esophageal reflux disease without esophagitis; Z87.891 Personal history of nicotine dependence; J44.9 Chronic obstructive pulmonary disease, unspecified; Z79.899 Other long term (current) drug therapy; Z91.09 Other allergy status, other than to drugs and biological substances
CPT/HCPCS: 36415; 80053; 82272; 85027; 96360; 99285; G0480; J7120

== ENCOUNTER 2017-10-06 05:15 | Inpatient (IN) | payer MEDICAID ==
[2017-10-06] MEDS ORDERED: Gabapentin 300 MG Cap PO ONE (05:27)
[2017-10-06] MEDS ORDERED: Scopolamine 1.5 MG Transdermal Patch TOP ONE (05:33)
[2017-10-06] MEDS ORDERED: cefOXitin 2 GM in Sodium Chloride 0.9% 50 ML IV ONE (06:00)
[2017-10-06] MEDS ORDERED: Albuterol/Ipratropium 3.0-0.5 MG/3 ML Neb Soln NEB ONE (06:00)
[2017-10-06] MEDS ORDERED: Acetaminophen 500 MG Tab PO ONE (06:00)
[2017-10-06] MEDS ORDERED: Meropenem 500 MG SDV ONE (07:14)
[2017-10-06] MEDS ORDERED: Ropivacaine 25 ML, Dexamethasone 8 MG, EPINEPHrine 0.4 MG, Sodium Chloride 0.9% 52.6 ML NERVRT SCH ×4 (08:00)
[2017-10-06] MEDS ORDERED: Ketamine 500 MG/5 ML MDV IV SCH (08:00)
[2017-10-06] MEDS ORDERED: Lidocaine 2% 100 MG/5 ML Syringe IVPUSH ONE (08:00)
[2017-10-06] MEDS: Dextrose 5%-Lactated Ringers 1,000 ML IV SCH ×4 (09:58→22:59)
[2017-10-06] MEDS ORDERED: fentaNYL 250 MCG/5 ML SDV ONE ×2 (10:00→12:03)
[2017-10-06] MEDS ORDERED: Midazolam 1 MG/ML 2 ML SDV ONE (10:00)
[2017-10-06] MEDS ORDERED: Rocuronium 50 MG/5 ML Vial ONE (10:01)
[2017-10-06] MEDS ORDERED: Dexamethasone 4 MG/ML SDV ONE (10:01)
[2017-10-06] MEDS ORDERED: Ondansetron 4 MG/2 ML SDV ONE (10:01)
[2017-10-06] MEDS ORDERED: Glycopyrrolate 0.2 MG/ML 5 ML MDV ONE (10:01)
[2017-10-06] MEDS ORDERED: Succinylcholine 200 MG/10 ML MDV ONE (10:01)
[2017-10-06] MEDS ORDERED: Propofol 200 MG/20 ML SDV ONE (10:01)
[2017-10-06] MEDS ORDERED: Neostigmine Methylsulfate 1 MG/ML 5 ML Syringe ONE (10:01)
[2017-10-06] MEDS: cefOXitin 2 GM in Sodium Chloride 0.9% 50 ML IV ONE ×2 (10:16→14:27)
[2017-10-06] MEDS ORDERED: Naloxone 0.4 MG/ML SDV IV PRN (11:01)
[2017-10-06] MEDS: Meperidine 300 MG/30 ML PCA Vial IV PRN ×2 (11:05→22:55)
[2017-10-06] MEDS ORDERED: Lactated Ringers 1,000 ML ONE (12:33)
[2017-10-06] MEDS ORDERED: Albuterol/Ipratropium 3.0-0.5 MG/3 ML Neb Soln INH PRN (14:00)
[2017-10-06] MEDS ORDERED: Ondansetron 4 MG/2 ML SDV IVPUSH PRN (14:00)
[2017-10-06] MEDS ORDERED: diphenhydrAMINE 50 MG/ML SDV IVPUSH PRN (14:00)
[2017-10-06] MEDS ORDERED: hydrOXYzine HCl 100 MG/2 ML SDV IM PRN (14:00)
[2017-10-06] MEDS ORDERED: Metoclopramide 10 MG/2 ML SDV IVPUSH PRN (14:00)
[2017-10-06] MEDS ORDERED: Labetalol 20 MG/4 ML Syringe IVPUSH PRN (14:00)
[2017-10-06] MEDS: Lidocaine 0.4%/D5W 2 GM/500 ML BAG IV SCH (14:06)
[2017-10-06] MEDS: Albuterol/Ipratropium 3.0-0.5 MG/3 ML Neb Soln INH SCH ×2 (14:59→21:19)
[2017-10-06] MEDS: Gabapentin 250 MG/5 ML Solution ML 470 ML Bottle PO SCH ×2 (15:16→21:22)
[2017-10-06] MEDS: CHECK SCOPOLAMINE PATCH SCH (15:18)
[2017-10-06] MEDS: Acetaminophen Soln 650 MG/20.3 ML UD Cup PO SCH ×2 (15:46→21:42)
[2017-10-06] MEDS: cefOXitin 2 GM in Sodium Chloride 0.9% 50 ML IV SCH ×2 (15:46→21:16)
[2017-10-06] MEDS ORDERED: MVI, Adult with Vitamin K 10 ML, Thiamine 100 MG, Chromium/Copper/Mang/Selen/Zn 1 ML in... IV SCH ×4 (16:00)
[2017-10-06] MEDS ORDERED: Pantoprazole 40 MG Vial IVPUSH SCH (16:00)
[2017-10-06] MEDS: Heparin Sodium 5,000 Units/ML Vial SUBCUT SCH (21:18)
[2017-10-06] MEDS: Formoterol/Mometasone 200-5 MCG 8.8 GM Inhaler IH SCH (21:19)
[2017-10-06] MEDS ORDERED: Lactated Ringers 500 ML IV SCH (22:30)
[2017-10-07] MEDS: Acetaminophen Soln 650 MG/20.3 ML UD Cup PO SCH ×4 (04:03→21:23)
[2017-10-07] MEDS: cefOXitin 2 GM in Sodium Chloride 0.9% 50 ML IV SCH ×3 (04:03→16:21)
[2017-10-07] MEDS ORDERED: Iohexol 647 MG/ML 50 ML SDV PO STA (04:03)
[2017-10-07] MEDS: Dextrose 5%-Lactated Ringers 1,000 ML IV SCH ×2 (05:34→12:28)
[2017-10-07] MEDS ORDERED: Lactated Ringers 500 ML IV SCH (07:00)
[2017-10-07] MEDS: Albuterol/Ipratropium 3.0-0.5 MG/3 ML Neb Soln INH SCH ×4 (07:32→21:23)
[2017-10-07] MEDS: Formoterol/Mometasone 200-5 MCG 8.8 GM Inhaler IH SCH ×2 (07:34→21:23)
[2017-10-07] MEDS: Celecoxib 200 MG Cap PO SCH (07:51)
[2017-10-07] MEDS: Heparin Sodium 5,000 Units/ML Vial SUBCUT SCH (07:52)
[2017-10-07] MEDS ORDERED: Propranolol 60 MG Cap.ER PO ONE (08:00)
[2017-10-07] MEDS ORDERED: Nitroglycerin 0.4 MG Tab.SL SL PRN (08:40)
[2017-10-07] MEDS ORDERED: Albuterol 8 GM Inhaler INH PRN (08:40)
--- NOTE | 2017-10-07 08:43 | CR ---
UG[facility] wo KUB HISTORY: eval R -Y GBP FINDINGS: After administration of oral contrast, upright views were obtained. Post operative changes gastric bypass. Surgical drains in place. No evidence for leak. Contrast passes freely into proximal small bowel loops. Surgical clips right upper quadrant. IMPRESSION: No evidence for leak or obstruction.
[2017-10-07] MEDS ORDERED: Non-Formulary Medication 1 Each (Budesonide/Formoterol [Symbicort 160-4.5 Mcg] 2 PUFF) INH SCH (09:00)
[2017-10-07] MEDS ORDERED: Non-Formulary Medication 1 Each (Fexofenadine/Pseudoephedrine [Allegra-D 24 Hour Tablet] 1 PO SCH (09:00)
[2017-10-07] MEDS: Tiotropium Inhaler 18 MCG Inhalation Powder Cap Kit of 5 INH SCH (10:28)
[2017-10-07] MEDS: Gabapentin 250 MG/5 ML Solution ML 470 ML Bottle PO SCH ×3 (11:04→21:23)
[2017-10-07] MEDS: Fluticasone Propionate Nasal Spray 16 GM Bottle NAS SCH (11:05)
[2017-10-07] MEDS: Misoprostol 100 MCG Tab PO SCH ×3 (11:06→21:23)
[2017-10-07] MEDS: Furosemide 20 MG Tab PO SCH (11:06)
[2017-10-07] MEDS: CHECK SCOPOLAMINE PATCH SCH (11:14)
[2017-10-07] MEDS: Meperidine 300 MG/30 ML PCA Vial IV PRN (12:29)
[2017-10-07] MEDS: Lidocaine 0.4%/D5W 2 GM/500 ML BAG IV SCH (12:31)
--- NOTE | 2017-10-07 13:20 | PCM.SURGPN ---
- General Info Date of Service: 10/07/17 Date of Surgery/Procedure: 10/06/17 POD#: 1 Post-Op Diagnosis: gastric ulcer Functional Status: Reports: Pain Controlled, Tolerating Diet, Urinating - Review of Systems General: Reports: No Symptoms HEENT: Reports: No Symptoms Pulmonary: Reports: No Symptoms Cardiovascular: Reports: No Symptoms Gastrointestinal: Reports: Abdominal Pain Genitourinary: Reports: No Symptoms Musculoskeletal: Reports: No Symptoms Neurological: Denies: Dizziness Psychiatric: Reports: No Symptoms - Patient Data Vitals - Most Recent: Last Vital Signs Temp 36.5 C 10/07/17 11:29 Pulse 61 10/07/17 11:29 Resp 16 10/07/17 11:29 BP 147/101 H 10/07/17 11:29 Pulse Ox 95 10/07/17 13:01 Weight - Most Recent: 51.075 kg I&O - Last 24 Hours: Intake & Output 10/06/17 10/07/17 10/07/17 22:59 06:59 14:59 Intake Total 1347 2457 800 Output Total 270 380 465 Balance 1077 2077 335 Med Orders - Current: Current Medications Acetaminophen (Tylenol) 650 mg PO Q6H [facility] Last Admin: 10/07/17 11:05 Dose: 650 mg Albuterol (Ventolin Hfa) 0 gm INH Q4H PRN PRN Reason: Dyspnea Albuterol/Ipratropium (Duoneb 3.0-0.5 Mg/3 Ml) 3 ml INH QIDRT [facility] Last Admin: 10/07/17 10:52 Dose: 3 ml Albuterol/Ipratropium (Duoneb 3.0-0.5 Mg/3 Ml) 3 ml INH ASDIRECTED PRN PRN Reason: BREATHING Celecoxib (Celebrex) 200 mg PO DAILY@0800 [facility] Last Admin: 10/07/17 07:51 Dose: 200 mg Clonazepam (Klonopin) 0.5 mg PO BEDTIME [facility] Ropivacaine 25 ml/Dexamethasone 8 mg/Epinephrine HCl 0.4 mg/ Sodium Chloride 52.6 ml 0 ml NERVRT ASDIRECTED [facility] Cyanocobalamin (Vitamin B12) 1,000 mcg IM ONETIME ONE Stop: 10/08/17 09:01 Diphenhydramine HCl (Benadryl) 25 - 50 mg IVPUSH Q4H PRN PRN Reason: ITCHING Fluticasone Propionate (Flonase) 0 gm MEHUL DAILY [facility] Last Admin: 10/07/17 11:05 Dose: 2 spray Furosemide (Lasix) 20 mg PO DAILY [facility] Last Admin: 10/07/17 11:06 Dose: 20 mg Gabapentin (Neurontin) 300 mg PO TID [facility] Last Admin: 10/07/17 11:04 Dose: 300 mg Heparin Sodium (Porcine) (Heparin Sodium) 5,000 units SUBCUT Q12H [facility] Last Admin: 10/07/17 07:52 Dose: 5,000 units Hydroxyzine HCl (Vistaril) 75 - 100 mg IM Q4H PRN PRN Reason: pain Lidocaine HCl/Dextrose (Lidocaine 2 Gm/D5w 500 Ml) 2 gm in 500 mls @ 15 mls/hr IV .Q24H [facility] Stop: 10/07/17 14:00 Last Admin: 10/07/17 12:31 Dose: Not Given Cefoxitin Sodium 2 gm/ Sodium (Chloride) 50 mls @ 100 mls/hr IV Q6H [facility] Stop: 10/07/17 16:29 Last Admin: 10/07/17 11:05 Dose: 100 mls/hr Dextrose/Lactated Ringer's (Dextrose 5%-Lactated Ringers) 1,000 mls @ 100 mls/ hr IV ASDIRECTED [facility] Multivitamins/Minerals 10 ml/Thiamine HCl 100 mg/ Chromium/Copper/Manganese/ Seleni/Zn 1 ml/ Dextrose/Lactated Ringer's 1,012 mls @ 100 mls/hr IV DAILY@ 1600 [facility] Labetalol HCl (Normodyne) 5 - 15 mg IVPUSH Q1H PRN PRN Reason: SBP over 160 OR DBP over 95 Meperidine HCl (Demerol Summer Sessions Director 300 Mg In 30 Ml) 0 mg IV ASDIRECTED PRN; Protocol PRN Reason: Pain Last Admin: 10/07/17 12:29 Dose: 300 mg Metoclopramide HCl (Reglan) 10 mg IVPUSH Q6H PRN PRN Reason: NAUSEA NOT CONTROL BY ZOFRAN Miscellaneous Information (Remove Patch) 1 ea TRDERM ONETIME ONE Stop: 10/08/17 10:01 Misoprostol (Cytotec) 100 mcg PO QID [facility] Last Admin: 10/07/17 11:06 Dose: 100 mcg Mometasone Furoate/Formoterol Fumar (Dulera 200-5 Mcg) 2 puff IH BIDRT [facility] Last Admin: 10/07/17 07:34 Dose: 2 puff Naloxone HCl (Narcan) 0.1 mg IV ASDIRECTED PRN PRN Reason: DECR RESP RATE Nitroglycerin (Nitrostat) 0.4 mg SL ASDIRECTED PRN PRN Reason: esophageal spasm Check Scopolamine (Patch) 0 each .XX DAILY [facility] Stop: 10/08/17 10:00 Last Admin: 10/07/17 11:14 Dose: Not Given Non-Formulary Medication (Minocycline [Minocin]) 50 mg PO BEDTIME [facility] Ondansetron HCl (Zofran) 4 mg IVPUSH Q4H PRN PRN Reason: Nausea/Vomiting Pantoprazole Sodium (Protonix Granules) 40 mg PO Q24H [facility] Propranolol HCl (Inderal La) 120 mg PO BEDTIME [facility] Tiotropium [place] (Spiriva Handihaler) 18 mcg INH DAILY@0700 [facility] Last Admin: 10/07/17 10:28 Dose: 1 cap Tizanidine HCl (Zanaflex) 4 mg PO BEDTIME PRN PRN Reason: muscle spasms Discontinued Medications Acetaminophen (Tylenol Extra Strength) 1,000 mg PO ONETIME ONE Stop: 10/06/17 06:01 Last Admin: 10/06/17 06:32 Dose: 1,000 mg Albuterol/Ipratropium (Duoneb 3.0-0.5 Mg/3 Ml) 3 ml NEB ONETIME ONE Stop: 10/06/17 06:01 Last Admin: 10/06/17 09:57 Dose: 3 ml Ropivacaine 25 ml/Dexamethasone 8 mg/Epinephrine HCl 0.4 mg/ Sodium Chloride 52.6 ml 0 ml NERVRT ASDIRECTED [facility] Last Admin: 10/06/17 10:16 Dose: 2 syringe Dexamethasone (Dexamethasone) Confirm Administered Dose 4 mg .ROUTE .STK-MED ONE Stop: 10/06/17 10:02 Fentanyl (Sublimaze) Confirm Administered Dose 250 mcg .ROUTE .STK-MED ONE Stop: 10/06/17 10:01 Fentanyl (Sublimaze) Confirm Administered Dose 250 mcg .ROUTE .STK-MED ONE Stop: 10/06/17 12:04 Gabapentin (Neurontin) 300 mg PO ONETIME ONE Stop: 10/06/17 05:28 Last Admin: 10/06/17 06:32 Dose: 300 mg Glycopyrrolate (Robinul) Confirm Administered Dose 1 mg .ROUTE .STK-MED ONE Stop: 10/06/17 10:02 Dextrose/Lactated Ringer's (Dextrose 5%-Lactated Ringers) 1,000 mls @ 100 mls/ hr IV ASDIRECTED [facility] Last Admin: 10/07/17 12:28 Dose: 100 mls/hr Cefoxitin Sodium 2 gm/ Sodium (Chloride) 50 mls @ 100 mls/hr IV ONETIME ONE Stop: 10/06/17 09:59 Last Admin: 10/06/17 14:27 Dose: Not Given Lactated Ringer's (Ringers, Lactated) Confirm Administered Dose 1,000 mls @ as directed .ROUTE .STK-MED ONE Stop: 10/06/17 12:34 Dextrose/Lactated Ringer's (Dextrose 5%-Lactated Ringers) 1,000 mls @ 175 mls/ hr IV ASDIRECTED [facility] Last Admin: 10/07/17 05:34 Dose: 175 mls/hr Multivitamins/Minerals 10 ml/Thiamine HCl 100 mg/ Chromium/Copper/Manganese/ Seleni/Zn 1 ml/ Dextrose/Lactated Ringer's 1,012 mls @ 175 mls/hr IV DAILY@ 1600 [facility] Last Admin: 10/06/17 15:46 Dose: 175 mls/hr Lactated Ringer's (Ringers, Lactated) 500 mls @ 500 mls/hr IV ASDIRECTED [facility] Stop: 10/06/17 23:29 Last Admin: 10/06/17 22:34 Dose: 500 mls/hr Lactated Ringer's (Ringers, Lactated) 500 mls @ 500 mls/hr IV ASDIRECTED [facility] Stop: 10/07/17 08:00 Last Admin: 10/07/17 07:44 Dose: 500 mls/hr Iohexol (Omnipaque-300) 50 ml PO .ASDIRECTED [facility] Stop: 10/07/17 04:04 Last Admin: 10/07/17 04:19 Dose: 50 ml Lidocaine HCl (Xylocaine 2%) 75 mg IVPUSH ONETIME ONE Stop: 10/06/17 08:01 Last Admin: 10/06/17 15:13 Dose: Not Given Meropenem (Merrem) Confirm Administered Dose 500 mg .ROUTE .STK-MED ONE Stop: 10/06/17 07:15 Last Admin: 10/06/17 11:19 Dose: 500 mg Midazolam HCl (Versed 1 Mg/Ml) Confirm Administered Dose 2 mg .ROUTE .STK-MED ONE Stop: 10/06/17 10:01 Neostigmine Methylsulfate (Neostigmine) Confirm Administered Dose 5 mg .ROUTE .STK-MED ONE Stop: 10/06/17 10:02 Ondansetron HCl (Zofran) Confirm Administered Dose 4 mg .ROUTE .STK-MED ONE Stop: 10/06/17 10:02 Pantoprazole Sodium (Protonix Iv) 40 mg IVPUSH Q24H [facility] Last Admin: 10/06/17 15:46 Dose: 40 mg Propofol (Diprivan 20 Ml) Confirm Administered Dose 200 mg .ROUTE .STK-MED ONE Stop: 10/06/17 10:02 Propranolol HCl (Inderal La) 120 mg PO ONETIME ONE Stop: 10/07/17 08:01 Last Admin: 10/07/17 11:06 Dose: 120 mg Rocuronium [place] (Zemuron) Confirm Administered Dose 50 mg .ROUTE .STK-MED ONE Stop: 10/06/17 10:02 Scopolamine (Transderm-Scop) 1.5 mg TOP ONETIME ONE Stop: 10/06/17 05:34 Last Admin: 10/06/17 06:32 Dose: 1.5 mg Succinylcholine Chloride (Quelicin) Confirm Administered Dose 200 mg .ROUTE .STK -MED ONE Stop: 10/06/17 10:02 - Exam Wound/Incisions: Dressing Dry and Intact General: Alert, Oriented, No Acute Distress HEENT: EOMI Lungs: Clear to Auscultation, Normal Respiratory Effort Cardiovascular: Regular Rate, Regular Rhythm, No Murmurs Skin: Warm, Dry, Intact Neurological: No New Focal Deficit Psy/Mental Status: Alert, Normal Affect, Normal Mood - Problem List & Annotations (1) Status post laparotomy SNOMED Code(s): 103470613, 752134711, 119825090 Code(s): Z98.890 - OTHER SPECIFIED POSTPROCEDURAL STATES Status: Acute Current Visit: Yes Annotation/Comment:: resection of gastric ulcer and anantomosis - Problem List Review Problem List Initiated/Reviewed/Updated: Yes - My Orders Last 24 Hours: Active Orders 24 hr Category Date Time Status Patient Status [ADT] Routine ADT 10/06/17 13:10 Active Ambulate [RC] ASDIRECTED Care 10/06/17 14:06 Active Cardiac Monitoring [RC] .As Directed Care 10/06/17 14:06 Active Communication Order [RC] ASDIRECTED Care 10/08/17 04:00 Active Communication Order [RC] Q4H Care 10/06/17 14:06 Active Communication Order [RC] ROUTINE Care 10/06/17 14:06 Active DC Simental Catheter [Urinary Catheter Removal] [RC] Per Care 10/07/17 08:34 Active Unit Routine Drain Management [RC] ASDIRECTED Care 10/06/17 14:06 Active Head of Bed Elevation [RC] CONTINUOUS Care 10/06/17 14:06 Active Insert Urinary Catheter [OM.PC] Per Unit Routine Care 10/06/17 14:06 Ordered Intake and Output [RC] ASDIRECTED Care 10/06/17 14:06 Active Notify Provider Intake and Out [RC] ASDIRECTED Care 10/06/17 14:06 Active Notify Provider [RC] PRN Care 10/06/17 14:06 Active Oxygen Therapy [RC] ASDIRECTED Care 10/06/17 14:06 Active Pneumonia Education [RC] UPON Care 10/06/17 14:06 Active Pulse Oximetry [RC] ASDIRECTED Care 10/06/17 14:06 Active RT BiPAP/CPAP [RC] ASDIRECTED Care 10/06/17 14:06 Active RT Incentive Spirometry [RC] ASDIRECTED Care 10/06/17 14:06 Active RT Incentive Spirometry [RC] Q1HWA Care 10/06/17 14:06 Active Turn, Cough, Deep Breathe [RC] Q1HWA Care 10/06/17 14:06 Active Up to Chair [RC] TIDMEALS Care 10/06/17 14:06 Active Verify Patient Consent Obtain [RC] ASDIRECTED Care 10/07/17 08:34 Active Vital Signs [RC] Q4H Care 10/06/17 14:06 Active Consult to Bariatric Services [CONS] Routine Cons 10/06/17 14:06 Active Consult to Clinical Biochemical Geneticist [CONS] Routine Cons 10/06/17 14:06 Active Consult to Pharmacy [CONS] Routine Cons 10/06/17 14:06 Active Respiratory Care Assess and Treatment [CONS] Routine Cons 10/06/17 14:06 Active Bariatric Diet [DIET] Diet 10/06/17 Dinner Active Bariatric Diet [DIET] Diet 10/07/17 Breakfast Active NPO After Midnight [Nothing per Oral After Midnight Diet 10/07/17 Lunch Active Diet] [DIET] Acetaminophen [Tylenol] Med 10/06/17 16:00 Active 650 mg PO Q6H Albuterol [Ventolin HFA] Med 10/07/17 08:40 Active 0 gm INH Q4H PRN Albuterol/Ipratropium [DuoNeb 3.0-0.5 MG/3 ML] Med 10/06/17 14:00 Active 3 ml INH ASDIRECTED PRN Albuterol/Ipratropium [DuoNeb 3.0-0.5 MG/3 ML] Med 10/06/17 15:00 Active 3 ml INH QIDRT Celecoxib [CeleBREX] Med 10/07/17 08:00 Active 200 mg PO DAILY@0800 ClonazePAM [KlonoPIN] Med 10/07/17 21:00 Active 0.5 mg PO BEDTIME Cyanocobalamin (Vitamin B12) [Vitamin B12] Med 10/08/17 09:00 Once 1,000 mcg IM ONETIME ONE Dextrose 5%-Lactated Ringers 1,000 ml Med 10/07/17 16:00 Active IV ASDIRECTED Fluticasone Propionate [Flonase] Med 10/07/17 09:00 Active 0 gm MEHUL DAILY Furosemide [Lasix] Med 10/07/17 09:00 Active 20 mg PO DAILY Gabapentin [Neurontin] Med 10/06/17 14:00 Active 300 mg PO TID Heparin Sodium Med 10/06/17 20:00 Active 5,000 units SUBCUT Q12H Labetalol [Normodyne] Med 10/06/17 14:00 Active 5 - 15 mg IVPUSH Q1H PRN MVI, Adult with Vitamin K [Infuvite Adult] 10 ml Med 10/07/17 16:00 Active Thiamine [Vitamin B-1] 100 mg Chromium/Copper/Hema/Selen/Zn [Multitrace-5 Concentrate ] 1 ml Dextrose 5%-Lactated Ringers 1,000 ml IV DAILY@1600 Metoclopramide [Reglan] Med 10/06/17 14:00 Active 10 mg IVPUSH Q6H PRN Minocycline [Minocin] Med 10/07/17 21:00 Pending 50 mg PO BEDTIME Misoprostol [Cytotec] Med 10/07/17 10:00 Active 100 mcg PO QID Mometasone/Formoterol [Dulera 200-5 MCG] Med 10/06/17 21:00 Active 2 puff IH BIDRT Nitroglycerin [Nitrostat] Med 10/07/17 08:40 Active 0.4 mg SL ASDIRECTED PRN Ondansetron [Zofran] Med 10/06/17 14:00 Active 4 mg IVPUSH Q4H PRN Pantoprazole [ProTONIX Granules] Med 10/07/17 16:00 Active 40 mg PO Q24H Propranolol [Inderal LA] Med 10/07/17 21:00 Active 120 mg PO BEDTIME Remove Patch Med 10/08/17 10:00 Once 1 ea TRDERM ONETIME ONE Ropivacaine [Naropin 0.5%] 25 ml Med 10/08/17 07:15 Active Dexamethasone 8 mg EPINEPHrine [Adrenalin] 0.4 mg Sodium Chloride 0.9% [Normal Saline] 52.6 ml NERVRT ASDIRECTED Tiotropium [Spiriva HandiHaler] Med 10/07/17 09:00 Active 18 mcg INH DAILY@0700 cefOXitin [Mefoxin] 2 gm Med 10/06/17 16:00 Active Sodium Chloride 0.9% [Normal Saline] 50 ml IV Q6H diphenhydrAMINE [Benadryl] Med 10/06/17 14:00 Active 25 - 50 mg IVPUSH Q4H PRN hydrOXYzine HCl [Vistaril] Med 10/06/17 14:00 Active 75 - 100 mg IM Q4H PRN tiZANidine [Zanaflex] Med 10/07/17 08:40 Active 4 mg PO BEDTIME PRN Abdominal Binder [OM.PC] Routine Oth 10/06/17 14:06 Ordered Oral Care [OM.PC] BID Oth 10/06/17 14:15 Ordered Oral Care [OM.PC] BID Oth 10/07/17 14:15 Ordered PT Screening [OM.PC] Routine Oth 10/06/17 14:06 Active Specialty Bed [OM.PC] Routine Oth 10/06/17 14:06 Ordered Resuscitation Status Routine Resus Stat 10/06/17 14:06 Ordered Medication Orders Acetaminophen (Tylenol) 650 mg PO Q6H [facility] Last Admin: 10/07/17 11:05 Dose: 650 mg Admin: 10/07/17 04:03 Dose: 650 mg Admin: 10/06/17 21:42 Dose: 650 mg Admin: 10/06/17 15:46 Dose: 650 mg Albuterol (Ventolin Hfa) 0 gm INH Q4H PRN PRN Reason: Dyspnea Albuterol/Ipratropium (Duoneb 3.0-0.5 Mg/3 Ml) 3 ml INH QIDRT [facility] Last Admin: 10/07/17 10:52 Dose: 3 ml Admin: 10/07/17 07:32 Dose: 3 ml Admin: 10/06/17 21:19 Dose: 3 ml Admin: 10/06/17 14:59 Dose: 3 ml Albuterol/Ipratropium (Duoneb 3.0-0.5 Mg/3 Ml) 3 ml INH ASDIRECTED PRN PRN Reason: BREATHING Celecoxib (Celebrex) 200 mg PO DAILY@0800 [facility] Last Admin: 10/07/17 07:51 Dose: 200 mg Clonazepam (Klonopin) 0.5 mg PO BEDTIME [facility] Ropivacaine 25 ml/Dexamethasone 8 mg/Epinephrine HCl 0.4 mg/ Sodium Chloride 52.6 ml 0 ml NERVRT ASDIRECTED [facility] Cyanocobalamin (Vitamin B12) 1,000 mcg IM ONETIME ONE Stop: 10/08/17 09:01 Diphenhydramine HCl (Benadryl) 25 - 50 mg IVPUSH Q4H PRN PRN Reason: ITCHING Fluticasone Propionate (Flonase) 0 gm MEHUL DAILY [facility] Last Admin: 10/07/17 11:05 Dose: 2 spray Furosemide (Lasix) 20 mg PO DAILY [facility] Last Admin: 10/07/17 11:06 Dose: 20 mg Gabapentin (Neurontin) 300 mg PO TID [facility] Last Admin: 10/07/17 11:04 Dose: 300 mg Admin: 10/06/17 21:22 Dose: 300 mg Admin: 10/06/17 15:16 Dose: 300 mg Heparin Sodium (Porcine) (Heparin Sodium) 5,000 units SUBCUT Q12H [facility] Last Admin: 10/07/17 07:52 Dose: 5,000 units Admin: 10/06/17 21:18 Dose: 5,000 units Hydroxyzine HCl (Vistaril) 75 - 100 mg IM Q4H PRN PRN Reason: pain Lidocaine HCl/Dextrose (Lidocaine 2 Gm/D5w 500 Ml) 2 gm in 500 mls @ 15 mls/hr IV .Q24H [facility] Stop: 10/07/17 14:00 Last Admin: 10/07/17 12:31 Dose: Not Given Admin: 10/06/17 14:06 Dose: 1 mg/min, 15 mls/hr Cefoxitin Sodium 2 gm/ Sodium (Chloride) 50 mls @ 100 mls/hr IV Q6H [facility] Stop: 10/07/17 16:29 Last Admin: 10/07/17 11:05 Dose: 100 mls/hr Admin: 10/07/17 04:03 Dose: 100 mls/hr Admin: 10/06/17 21:16 Dose: 100 mls/hr Admin: 10/06/17 15:46 Dose: 100 mls/hr Dextrose/Lactated Ringer's (Dextrose 5%-Lactated Ringers) 1,000 mls @ 100 mls/ hr IV ASDIRECTED [facility] Multivitamins/Minerals 10 ml/Thiamine HCl 100 mg/ Chromium/Copper/Manganese/ Seleni/Zn 1 ml/ Dextrose/Lactated Ringer's 1,012 mls @ 100 mls/hr IV DAILY@ 1600 [facility] Labetalol HCl (Normodyne) 5 - 15 mg IVPUSH Q1H PRN PRN Reason: SBP over 160 OR DBP over 95 Meperidine HCl (Demerol Summer Sessions Director 300 Mg In 30 Ml) 0 mg IV ASDIRECTED PRN; Protocol PRN Reason: Pain Last Admin: 10/07/17 12:29 Dose: 300 mg Admin: 10/06/17 22:55 Dose: 300 mg Admin: 10/06/17 11:05 Dose: 15 mg Metoclopramide HCl (Reglan) 10 mg IVPUSH Q6H PRN PRN Reason: NAUSEA NOT CONTROL BY ZOFRAN Miscellaneous Information (Remove Patch) 1 ea TRDERM ONETIME ONE Stop: 10/08/17 10:01 Misoprostol (Cytotec) 100 mcg PO QID [facility] Last Admin: 10/07/17 11:06 Dose: 100 mcg Mometasone Furoate/Formoterol Fumar (Dulera 200-5 Mcg) 2 puff IH BIDRT [facility] Last Admin: 10/07/17 07:34 Dose: 2 puff Admin: 10/06/17 21:19 Dose: 2 puff Naloxone HCl (Narcan) 0.1 mg IV ASDIRECTED PRN PRN Reason: DECR RESP RATE Nitroglycerin (Nitrostat) 0.4 mg SL ASDIRECTED PRN PRN Reason: esophageal spasm Check Scopolamine (Patch) 0 each .XX DAILY [facility] Stop: 10/08/17 10:00 Last Admin: 10/07/17 11:14 Dose: Admin: 10/06/17 15:18 Dose: Non-Formulary Medication (Minocycline [Minocin]) 50 mg PO BEDTIME [facility] Ondansetron HCl (Zofran) 4 mg IVPUSH Q4H PRN PRN Reason: Nausea/Vomiting Pantoprazole Sodium (Protonix Granules) 40 mg PO Q24H [facility] Propranolol HCl (Inderal La) 120 mg PO BEDTIME [facility] Tiotropium [place] (Spiriva Handihaler) 18 mcg INH DAILY@0700 [facility] Last Admin: 10/07/17 10:28 Dose: 1 cap Tizanidine HCl (Zanaflex) 4 mg PO BEDTIME PRN PRN Reason: muscle spasms - Assessment Assessment (Free Text/Narrative):: -status post laparotomy with resection of gastric ulcer at anastomosis and reconstruction of anastomosis - Plan Plan (Free Text/Narrative):: -give second LR bolus -DPC tomorrow with TAP -Propranolol 120 mg given this morning and will be given HS -simetnal to be taken out today -IV fluids decreased from 175 to 100 ml/hr at 1600 -start step two diet today
[2017-10-07] MEDS ORDERED: Coagulation Factor VIIa Recombinant (per MCG) 2 MG Vial IVPUSH ONE (15:50)
[2017-10-07] MEDS ORDERED: Dextrose 5%-Lactated Ringers 1,000 ML IV SCH (16:00)
[2017-10-07] MEDS: Pantoprazole 40 MG Delayed-Release Granules 1 Packet PO SCH (16:23)
[2017-10-07] MEDS: MVI, Adult with Vitamin K 10 ML, Thiamine 100 MG, Chromium/Copper/Mang/Selen/Zn 1 ML in... IV SCH ×4 (16:48)
[2017-10-07] MEDS ORDERED: MINOCYCLINE 50 MG PO SCH (21:00)
[2017-10-07] MEDS ORDERED: Non-Formulary Medication 1 Each (Propranolol [Inderal La] 120 MG) PO SCH (21:00)
[2017-10-07] MEDS: Propranolol 60 MG Cap.ER PO SCH (21:24)
[2017-10-07] MEDS: tiZANidine 4 MG Tab PO PRN (21:29)
[2017-10-07] MEDS: ClonazePAM 0.5 MG Tab PO SCH (21:29)
[2017-10-08] MEDS: Acetaminophen Soln 650 MG/20.3 ML UD Cup PO SCH ×4 (04:46→21:03)
[2017-10-08] MEDS: Misoprostol 100 MCG Tab PO SCH ×4 (05:14→21:03)
[2017-10-08] MEDS ORDERED: Meropenem 500 MG SDV ONE (06:39)
[2017-10-08] MEDS ORDERED: Bupivacaine 0.5% 50 ML MDV ONE (06:39)
[2017-10-08] MEDS ORDERED: Lidocaine 1% with EPINEPHrine 1:100,000 50 ML MDV ONE (06:39)
[2017-10-08] MEDS ORDERED: Midazolam 1 MG/ML 2 ML SDV ONE (06:55)
[2017-10-08] MEDS ORDERED: Propofol 200 MG/20 ML SDV ONE (06:55)
[2017-10-08] MEDS ORDERED: Coagulation Factor VIIa Recombinant (per MCG) 2 MG Vial IVPUSH STA (07:04)
[2017-10-08] MEDS ORDERED: Ropivacaine 25 ML, Dexamethasone 8 MG, EPINEPHrine 0.4 MG, Sodium Chloride 0.9% 52.6 ML NERVRT SCH ×4 (07:15)
[2017-10-08] MEDS: Albuterol/Ipratropium 3.0-0.5 MG/3 ML Neb Soln INH SCH ×4 (07:38→20:13)
[2017-10-08] MEDS ORDERED: Coagulation Factor VIIa Recombinant (per MCG) 2 MG Vial IVPUSH ONE ×2 (08:13→08:26)
[2017-10-08] MEDS ORDERED: Cyanocobalamin (Vitamin B12) 1,000 MCG/ML SDV IM ONE (09:00)
[2017-10-08] MEDS: Tiotropium Inhaler 18 MCG Inhalation Powder Cap Kit of 5 INH SCH (09:31)
[2017-10-08] MEDS: Formoterol/Mometasone 200-5 MCG 8.8 GM Inhaler IH SCH ×2 (09:31→20:09)
[2017-10-08] MEDS: Celecoxib 200 MG Cap PO SCH (10:34)
[2017-10-08] MEDS: Fluticasone Propionate Nasal Spray 16 GM Bottle NAS SCH (10:35)
[2017-10-08] MEDS: Furosemide 20 MG Tab PO SCH (10:36)
[2017-10-08] MEDS: CHECK SCOPOLAMINE PATCH SCH (10:37)
[2017-10-08] MEDS: Gabapentin 250 MG/5 ML Solution ML 470 ML Bottle PO SCH ×3 (10:41→20:13)
[2017-10-08] MEDS: Meperidine 300 MG/30 ML PCA Vial IV PRN (11:09)
--- NOTE | 2017-10-08 13:22 | PCM.SURGPN ---
- General Info Date of Service: 10/08/17 Date of Surgery/Procedure: 10/06/17 POD#: 2 Functional Status: Reports: Tolerating Diet, Ambulating, Urinating Pain Score: 9 - Review of Systems General: Reports: No Symptoms HEENT: Reports: No Symptoms Pulmonary: Reports: No Symptoms Cardiovascular: Reports: No Symptoms Gastrointestinal: Reports: Abdominal Pain Genitourinary: Reports: No Symptoms Musculoskeletal: Reports: No Symptoms Skin: Reports: No Symptoms Neurological: Reports: No Symptoms Psychiatric: Reports: No Symptoms Systems Review Comment:: Pt states that she is feeling much better after her DPC today and states that she is still having some abd pain but it is improved. Pt has no other complaints - Patient Data Vitals - Most Recent: Last Vital Signs Temp 36.1 C 10/08/17 09:18 Pulse 54 L 10/08/17 11:00 Resp 16 10/08/17 11:00 BP 77/53 L 10/08/17 11:00 Pulse Ox 10 L 10/08/17 11:00 Weight - Most Recent: 51.075 kg I&O - Last 24 Hours: Intake & Output 10/07/17 10/08/17 10/08/17 22:59 06:59 14:59 Intake Total 2917 1182 37 Output Total 510 770 Balance 2407 412 37 Lab Results Last 24 Hrs: Laboratory Results - last 24 hr 10/06/17 10/07/17 10/08/17 Range/Units 06:05 15:14 04:49 WBC 11.1 H 6.2 (4.5-11.0) K/uL RBC 3.09 L 3.09 L (3.30-5.50) M/uL Hgb 8.9 L D 8.5 L (12.0-15.0) g/dL Hct 28.2 L 27.7 L (36.0-48.0) % MCV 91 90 (80-98) fL MCH 29 28 (27-31) pg MCHC 32 31 L (32-36) % Plt Count 310 188 (150-400) K/uL Sodium (140-148) mmol/L Potassium (3.6-5.2) mmol/L Chloride (100-108) mmol/L Carbon Dioxide (21-32) mmol/L Anion Gap (5.0-14.0) mmol/L BUN (7-18) mg/dL Creatinine (0.6-1.0) mg/dL Est Cr Clr Drug Dosing mL/min Estimated GFR (MDRD) (>60) Glucose (74-106) mg/dL Calcium (8.5-10.1) mg/dL Phosphorus (2.5-4.9) mg/dL Magnesium (1.8-2.4) mg/dL Total Bilirubin (0.2-1.0) mg/dL AST (15-37) U/L ALT (12-78) U/L Alkaline Phosphatase (46-116) U/L Total Protein (6.4-8.2) g/dL Albumin (3.4-5.0) g/dL Globulin (2.3-3.5) g/dL Albumin/Globulin Ratio (1.2-2.2) Blood Type A POSITIVE Gel Antibody Screen Negative Crossmatch See Detail 10/08/17 10/08/17 Range/Units 04:49 09:30 WBC 7.3 (4.5-11.0) K/uL RBC 3.52 (3.30-5.50) M/uL Hgb 10.0 L (12.0-15.0) g/dL Hct 31.3 L (36.0-48.0) % MCV 89 (80-98) fL MCH 28 (27-31) pg MCHC 32 (32-36) % Plt Count 175 (150-400) K/uL Sodium 139 L (140-148) mmol/L Potassium 4.0 (3.6-5.2) mmol/L Chloride 104 (100-108) mmol/L Carbon Dioxide 29 (21-32) mmol/L Anion Gap 10.0 (5.0-14.0) mmol/L BUN 9 (7-18) mg/dL Creatinine 0.8 (0.6-1.0) mg/dL Est Cr Clr Drug Dosing 67.08 mL/min Estimated GFR (MDRD) > 60 (>60) Glucose 83 (74-106) mg/dL Calcium 7.6 L D (8.5-10.1) mg/dL Phosphorus 3.4 (2.5-4.9) mg/dL Magnesium 1.8 D (1.8-2.4) mg/dL Total Bilirubin 0.5 (0.2-1.0) mg/dL AST 66 H (15-37) U/L ALT 49 (12-78) U/L Alkaline Phosphatase 638 H (46-116) U/L Total Protein 4.4 L (6.4-8.2) g/dL Albumin 2.0 L (3.4-5.0) g/dL Globulin 2.4 (2.3-3.5) g/dL Albumin/Globulin Ratio 0.8 L (1.2-2.2) Blood Type Gel Antibody Screen Crossmatch Med Orders - Current: Current Medications Acetaminophen (Tylenol) 650 mg PO Q6H [facility] Last Admin: 10/08/17 10:35 Dose: 650 mg Albuterol (Ventolin Hfa) 0 gm INH Q4H PRN PRN Reason: Dyspnea Albuterol/Ipratropium (Duoneb 3.0-0.5 Mg/3 Ml) 3 ml INH QIDRT [facility] Last Admin: 10/08/17 10:57 Dose: 3 ml Albuterol/Ipratropium (Duoneb 3.0-0.5 Mg/3 Ml) 3 ml INH ASDIRECTED PRN PRN Reason: BREATHING Celecoxib (Celebrex) 200 mg PO DAILY@0800 [facility] Last Admin: 10/08/17 10:34 Dose: 200 mg Clonazepam (Klonopin) 0.5 mg PO BEDTIME [facility] Last Admin: 10/07/17 21:29 Dose: 0.5 mg Ropivacaine 25 ml/Dexamethasone 8 mg/Epinephrine HCl 0.4 mg/ Sodium Chloride 52.6 ml 0 ml NERVRT ASDIRECTED [facility] Last Admin: 10/08/17 07:49 Dose: 2 syringe Diphenhydramine HCl (Benadryl) 25 - 50 mg IVPUSH Q4H PRN PRN Reason: ITCHING Fluticasone Propionate (Flonase) 0 gm MEHUL DAILY [facility] Last Admin: 10/08/17 10:35 Dose: 2 spray Furosemide (Lasix) 20 mg PO DAILY [facility] Last Admin: 10/08/17 10:36 Dose: 20 mg Gabapentin (Neurontin) 300 mg PO TID [facility] Last Admin: 10/08/17 10:41 Dose: 300 mg Hydroxyzine HCl (Vistaril) 75 - 100 mg IM Q4H PRN PRN Reason: pain Dextrose/Lactated Ringer's (Dextrose 5%-Lactated Ringers) 1,000 mls @ 100 mls/ hr IV ASDIRECTED [facility] Multivitamins/Minerals 10 ml/Thiamine HCl 100 mg/ Chromium/Copper/Manganese/ Seleni/Zn 1 ml/ Dextrose/Lactated Ringer's 1,012 mls @ 100 mls/hr IV DAILY@ 1600 [facility] Last Admin: 10/07/17 16:48 Dose: 100 mls/hr Labetalol HCl (Normodyne) 5 - 15 mg IVPUSH Q1H PRN PRN Reason: SBP over 160 OR DBP over 95 Meperidine HCl (Demerol [employer] 300 Mg In 30 Ml) 0 mg IV ASDIRECTED PRN; Protocol PRN Reason: Pain Last Admin: 10/08/17 11:09 Dose: 300 mg Metoclopramide HCl (Reglan) 10 mg IVPUSH Q6H PRN PRN Reason: NAUSEA NOT CONTROL BY ZOFRAN Misoprostol (Cytotec) 100 mcg PO QID [facility] Last Admin: 10/08/17 10:37 Dose: 100 mcg Mometasone Furoate/Formoterol Fumar (Dulera 200-5 Mcg) 2 puff IH BIDRT [facility] Last Admin: 10/08/17 09:31 Dose: 2 puff Naloxone HCl (Narcan) 0.1 mg IV ASDIRECTED PRN PRN Reason: DECR RESP RATE Nitroglycerin (Nitrostat) 0.4 mg SL ASDIRECTED PRN PRN Reason: esophageal spasm Non-Formulary Medication (Minocycline [Minocin]) 50 mg PO BEDTIME [facility] Ondansetron HCl (Zofran) 4 mg IVPUSH Q4H PRN PRN Reason: Nausea/Vomiting Pantoprazole Sodium (Protonix Granules) 40 mg PO Q24H [facility] Last Admin: 10/07/17 16:23 Dose: 40 mg Propranolol HCl (Inderal La) 120 mg PO BEDTIME [facility] Last Admin: 10/07/17 21:24 Dose: 120 mg Tiotropium [place] (Spiriva Handihaler) 18 mcg INH DAILY@0700 [facility] Last Admin: 10/08/17 09:31 Dose: 1 cap Tizanidine HCl (Zanaflex) 4 mg PO BEDTIME PRN PRN Reason: muscle spasms Last Admin: 10/07/17 21:29 Dose: 4 mg Discontinued Medications Acetaminophen (Tylenol Extra Strength) 1,000 mg PO ONETIME ONE Stop: 10/06/17 06:01 Last Admin: 10/06/17 06:32 Dose: 1,000 mg Albuterol/Ipratropium (Duoneb 3.0-0.5 Mg/3 Ml) 3 ml NEB ONETIME ONE Stop: 10/06/17 06:01 Last Admin: 10/06/17 09:57 Dose: 3 ml Bupivacaine HCl (Marcaine 0.5%) Confirm Administered Dose 50 ml .ROUTE .STK-MED ONE Stop: 10/08/17 06:40 Last Admin: 10/08/17 07:53 Dose: 10 ml Ropivacaine 25 ml/Dexamethasone 8 mg/Epinephrine HCl 0.4 mg/ Sodium Chloride 52.6 ml 0 ml NERVRT ASDIRECTED [facility] Last Admin: 10/06/17 10:16 Dose: 2 syringe Cyanocobalamin (Vitamin B12) 1,000 mcg IM ONETIME ONE Stop: 10/08/17 09:01 Last Admin: 10/08/17 10:38 Dose: 1,000 mcg Dexamethasone (Dexamethasone) Confirm Administered Dose 4 mg .ROUTE .STK-MED ONE Stop: 10/06/17 10:02 Factor VIIa (Recombinant) (Novoseven Rt) 2,000 mcg IVPUSH ONETIME ONE Stop: 10/07/17 15:51 Last Admin: 10/07/17 16:03 Dose: 2,000 mcg Factor VIIa (Recombinant) (Novoseven Rt) 2,000 mcg IVPUSH ONETIME STA Stop: 10/08/17 07:05 Last Admin: 10/08/17 07:11 Dose: 2,000 mcg Factor VIIa (Recombinant) (Novoseven Rt) 2,000 mcg IVPUSH ONETIME ONE Stop: 10/08/17 08:14 Last Admin: 10/08/17 08:34 Dose: 2,000 mcg Factor VIIa (Recombinant) (Novoseven Rt) Confirm Administered Dose 1 mcg IVPUSH .STK-MED ONE Stop: 10/08/17 08:27 Fentanyl (Sublimaze) Confirm Administered Dose 250 mcg .ROUTE .STK-MED ONE Stop: 10/06/17 10:01 Fentanyl (Sublimaze) Confirm Administered Dose 250 mcg .ROUTE .STK-MED ONE Stop: 10/06/17 12:04 Gabapentin (Neurontin) 300 mg PO ONETIME ONE Stop: 10/06/17 05:28 Last Admin: 10/06/17 06:32 Dose: 300 mg Glycopyrrolate (Robinul) Confirm Administered Dose 1 mg .ROUTE .STK-MED ONE Stop: 10/06/17 10:02 Heparin Sodium (Porcine) (Heparin Sodium) 5,000 units SUBCUT Q12H [facility] Last Admin: 10/07/17 07:52 Dose: 5,000 units Lidocaine HCl/Dextrose (Lidocaine 2 Gm/D5w 500 Ml) 2 gm in 500 mls @ 15 mls/hr IV .Q24H [facility] Stop: 10/07/17 14:00 Last Admin: 10/07/17 12:31 Dose: Not Given Dextrose/Lactated Ringer's (Dextrose 5%-Lactated Ringers) 1,000 mls @ 100 mls/ hr IV ASDIRECTED [facility] Last Admin: 10/07/17 12:28 Dose: 100 mls/hr Cefoxitin Sodium 2 gm/ Sodium (Chloride) 50 mls @ 100 mls/hr IV ONETIME ONE Stop: 10/06/17 09:59 Last Admin: 10/06/17 14:27 Dose: Not Given Lactated Ringer's (Ringers, Lactated) Confirm Administered Dose 1,000 mls @ as directed .ROUTE .K-MED ONE Stop: 10/06/17 12:34 Dextrose/Lactated Ringer's (Dextrose 5%-Lactated Ringers) 1,000 mls @ 175 mls/ hr IV ASDIRECTED [facility] Last Admin: 10/07/17 05:34 Dose: 175 mls/hr Multivitamins/Minerals 10 ml/Thiamine HCl 100 mg/ Chromium/Copper/Manganese/ Seleni/Zn 1 ml/ Dextrose/Lactated Ringer's 1,012 mls @ 175 mls/hr IV DAILY@ 1600 [facility] Last Admin: 10/06/17 15:46 Dose: 175 mls/hr Cefoxitin Sodium 2 gm/ Sodium (Chloride) 50 mls @ 100 mls/hr IV Q6H [facility] Stop: 10/07/17 16:29 Last Admin: 10/07/17 16:21 Dose: 100 mls/hr Lactated Ringer's (Ringers, Lactated) 500 mls @ 500 mls/hr IV ASDIRECTED [facility] Stop: 10/06/17 23:29 Last Admin: 10/06/17 22:34 Dose: 500 mls/hr Lactated Ringer's (Ringers, Lactated) 500 mls @ 500 mls/hr IV ASDIRECTED [facility] Stop: 10/07/17 08:00 Last Admin: 10/07/17 07:44 Dose: 500 mls/hr Iohexol (Omnipaque-300) 50 ml PO .ASDIRECTED [facility] Stop: 10/07/17 04:04 Last Admin: 10/07/17 04:19 Dose: 50 ml Lidocaine HCl (Xylocaine 2%) 75 mg IVPUSH ONETIME ONE Stop: 10/06/17 08:01 Last Admin: 10/06/17 15:13 Dose: Not Given Lidocaine/Epinephrine (Xylocaine 1% With Epinephrine 1:100,000) Confirm Administered Dose 50 ml .ROUTE .STK-MED ONE Stop: 10/08/17 06:40 Last Admin: 10/08/17 07:53 Dose: 10 ml Meropenem (Merrem) Confirm Administered Dose 500 mg .ROUTE .STK-MED ONE Stop: 10/06/17 07:15 Last Admin: 10/06/17 11:19 Dose: 500 mg Meropenem (Merrem) Confirm Administered Dose 500 mg .ROUTE .STK-MED ONE Stop: 10/08/17 06:40 Last Admin: 10/08/17 07:53 Dose: 500 mg Midazolam HCl (Versed 1 Mg/Ml) Confirm Administered Dose 2 mg .ROUTE .STK-MED ONE Stop: 10/06/17 10:01 Midazolam HCl (Versed 1 Mg/Ml) Confirm Administered Dose 2 mg .ROUTE .STK-MED ONE Stop: 10/08/17 06:56 Miscellaneous Information (Remove Patch) 1 ea TRDERM ONETIME ONE Stop: 10/08/17 10:01 Last Admin: 10/08/17 10:44 Dose: Not Given Neostigmine Methylsulfate (Neostigmine) Confirm Administered Dose 5 mg .ROUTE .STK-MED ONE Stop: 10/06/17 10:02 Check Scopolamine (Patch) 0 each .XX DAILY [facility] Stop: 10/08/17 10:00 Last Admin: 10/08/17 10:37 Dose: Not Given Ondansetron HCl (Zofran) Confirm Administered Dose 4 mg .ROUTE .STK-MED ONE Stop: 10/06/17 10:02 Pantoprazole Sodium (Protonix Iv) 40 mg IVPUSH Q24H [facility] Last Admin: 10/06/17 15:46 Dose: 40 mg Propofol (Diprivan 20 Ml) Confirm Administered Dose 200 mg .ROUTE .STK-MED ONE Stop: 10/06/17 10:02 Propofol (Diprivan 20 Ml) Confirm Administered Dose 200 mg .ROUTE .STK-MED ONE Stop: 10/08/17 06:56 Propranolol HCl (Inderal La) 120 mg PO ONETIME ONE Stop: 10/07/17 08:01 Last Admin: 10/07/17 11:06 Dose: 120 mg Rocuronium [place] (Zemuron) Confirm Administered Dose 50 mg .ROUTE .STK-MED ONE Stop: 10/06/17 10:02 Scopolamine (Transderm-Scop) 1.5 mg TOP ONETIME ONE Stop: 10/06/17 05:34 Last Admin: 10/06/17 06:32 Dose: 1.5 mg Succinylcholine Chloride (Quelicin) Confirm Administered Dose 200 mg .ROUTE .STK -MED ONE Stop: 10/06/17 10:02 - Exam General: Alert, Oriented, No Acute Distress Lungs: Clear to Auscultation, Normal Respiratory Effort Cardiovascular: Regular Rate, Regular Rhythm, No Murmurs GI/Abdominal Exam: Tender Skin: Warm, Dry Psy/Mental Status: Alert, Normal Affect, Normal Mood (Pt is very jovial and talkative. AOX3 and in no acute distress. Normal gait and is moving around well) - Problem List & Annotations (1) Status post laparotomy SNOMED Code(s): 743628811, [id number], 096398977 Code(s): Z98.890 - OTHER SPECIFIED POSTPROCEDURAL STATES Status: Acute Current Visit: Yes Annotation/Comment:: resection of gastric ulcer and anantomosis - Problem List Review Problem List Initiated/Reviewed/Updated: Yes - My Orders Last 24 Hours: Active Orders 24 hr Category Date Time Status Communication Order [RC] ASDIRECTED Care 10/08/17 04:00 Active Dietary Supplements [RC] BIDAC Care 10/08/17 09:13 Active Bariatric Diet [DIET] Diet 10/08/17 Lunch Active CBC W/O DIFF,HEMOGRAM [HEME] Routine Lab 10/09/17 04:00 Ordered COMPREHENSIVE METABOLIC PN,CMP [CHEM] Routine Lab 10/09/17 04:00 Ordered PHOSPHORUS [CHEM] Routine Lab 10/09/17 04:00 Ordered ClonazePAM [KlonoPIN] Med 10/07/17 21:00 Active 0.5 mg PO BEDTIME Dextrose 5%-Lactated Ringers 1,000 ml Med 10/07/17 16:00 Active IV ASDIRECTED [facility], Adult with Vitamin K [Infuvite Adult] 10 ml Med 10/07/17 16:00 Active Thiamine [Vitamin B-1] 100 mg Chromium/Copper/Hema/Selen/Zn [Multitrace-5 Concentrate ] 1 ml Dextrose 5%-Lactated Ringers 1,000 ml IV DAILY@1600 Minocycline [Minocin] Med 10/07/17 21:00 Pending 50 mg PO BEDTIME Pantoprazole [ProTONIX Granules] Med 10/07/17 16:00 Active 40 mg PO Q24H Propranolol [Inderal LA] Med 10/07/17 21:00 Active 120 mg PO BEDTIME Ropivacaine [Naropin 0.5%] 25 ml Med 10/08/17 07:15 Active Dexamethasone 8 mg EPINEPHrine [Adrenalin] 0.4 mg Sodium Chloride 0.9% [Normal Saline] 52.6 ml NERVRT ASDIRECTED Oral Care [OM.PC] BID Oth 10/07/17 14:15 Ordered Transfuse Red Blood Cells [COMM] Routine Oth 10/08/17 04:01 Ordered Medication Orders Acetaminophen (Tylenol) 650 mg PO Q6H [facility] Last Admin: 10/08/17 10:35 Dose: 650 mg Admin: 10/08/17 04:46 Dose: Admin: 10/07/17 21:23 Dose: 650 mg Admin: 10/07/17 16:23 Dose: 650 mg Admin: 10/07/17 11:05 Dose: 650 mg Admin: 10/07/17 04:03 Dose: 650 mg Admin: 10/06/17 21:42 Dose: 650 mg Admin: 10/06/17 15:46 Dose: 650 mg Albuterol (Ventolin Hfa) 0 gm INH Q4H PRN PRN Reason: Dyspnea Albuterol/Ipratropium (Duoneb 3.0-0.5 Mg/3 Ml) 3 ml INH QIDRT [facility] Last Admin: 10/08/17 10:57 Dose: 3 ml Admin: 10/08/17 07:38 Dose: Not Given Admin: 10/07/17 21:23 Dose: 3 ml Admin: 10/07/17 14:54 Dose: Not Given Admin: 10/07/17 10:52 Dose: 3 ml Admin: 10/07/17 07:32 Dose: 3 ml Admin: 10/06/17 21:19 Dose: 3 ml Admin: 10/06/17 14:59 Dose: 3 ml Albuterol/Ipratropium (Duoneb 3.0-0.5 Mg/3 Ml) 3 ml INH ASDIRECTED PRN PRN Reason: BREATHING Celecoxib (Celebrex) 200 mg PO DAILY@0800 [facility] Last Admin: 10/08/17 10:34 Dose: 200 mg Admin: 10/07/17 07:51 Dose: 200 mg Clonazepam (Klonopin) 0.5 mg PO BEDTIME [facility] Last Admin: 10/07/17 21:29 Dose: 0.5 mg Ropivacaine 25 ml/Dexamethasone 8 mg/Epinephrine HCl 0.4 mg/ Sodium Chloride 52.6 ml 0 ml NERVRT ASDIRECTED [facility] Last Admin: 10/08/17 07:49 Dose: 2 syringe Diphenhydramine HCl (Benadryl) 25 - 50 mg IVPUSH Q4H PRN PRN Reason: ITCHING Fluticasone Propionate (Flonase) 0 gm MEHUL DAILY [facility] Last Admin: 10/08/17 10:35 Dose: 2 spray Admin: 10/07/17 11:05 Dose: 2 spray Furosemide (Lasix) 20 mg PO DAILY [facility] Last Admin: 10/08/17 10:36 Dose: 20 mg Admin: 10/07/17 11:06 Dose: 20 mg Gabapentin (Neurontin) 300 mg PO TID [facility] Last Admin: 10/08/17 10:41 Dose: 300 mg Admin: 10/07/17 21:23 Dose: 300 mg Admin: 10/07/17 16:21 Dose: 300 mg Admin: 10/07/17 11:04 Dose: 300 mg Admin: 10/06/17 21:22 Dose: 300 mg Admin: 10/06/17 15:16 Dose: 300 mg Hydroxyzine HCl (Vistaril) 75 - 100 mg IM Q4H PRN PRN Reason: pain Dextrose/Lactated Ringer's (Dextrose 5%-Lactated Ringers) 1,000 mls @ 100 mls/ hr IV ASDIRECTED [facility] Multivitamins/Minerals 10 ml/Thiamine HCl 100 mg/ Chromium/Copper/Manganese/ Seleni/Zn 1 ml/ Dextrose/Lactated Ringer's 1,012 mls @ 100 mls/hr IV DAILY@ 1600 [facility] Last Admin: 10/07/17 16:48 Dose: 100 mls/hr Labetalol HCl (Normodyne) 5 - 15 mg IVPUSH Q1H PRN PRN Reason: SBP over 160 OR DBP over 95 Meperidine HCl (Demerol [employer] 300 Mg In 30 Ml) 0 mg IV ASDIRECTED PRN; Protocol PRN Reason: Pain Last Admin: 10/08/17 11:09 Dose: 300 mg Admin: 10/07/17 12:29 Dose: 300 mg Admin: 10/06/17 22:55 Dose: 300 mg Admin: 10/06/17 11:05 Dose: 15 mg Metoclopramide HCl (Reglan) 10 mg IVPUSH Q6H PRN PRN Reason: NAUSEA NOT CONTROL BY ZOFRAN Misoprostol (Cytotec) 100 mcg PO QID [facility] Last Admin: 10/08/17 10:37 Dose: 100 mcg Admin: 10/08/17 05:14 Dose: Admin: 10/07/17 21:23 Dose: 100 mcg Admin: 10/07/17 16:23 Dose: 100 mcg Admin: 10/07/17 11:06 Dose: 100 mcg Mometasone Furoate/Formoterol Fumar (Dulera 200-5 Mcg) 2 puff IH BIDRT [facility] Last Admin: 10/08/17 09:31 Dose: 2 puff Admin: 10/07/17 21:23 Dose: 2 puff Admin: 10/07/17 07:34 Dose: 2 puff Admin: 10/06/17 21:19 Dose: 2 puff Naloxone HCl (Narcan) 0.1 mg IV ASDIRECTED PRN PRN Reason: DECR RESP RATE Nitroglycerin (Nitrostat) 0.4 mg SL ASDIRECTED PRN PRN Reason: esophageal spasm Non-Formulary Medication (Minocycline [Minocin]) 50 mg PO BEDTIME [facility] Ondansetron HCl (Zofran) 4 mg IVPUSH Q4H PRN PRN Reason: Nausea/Vomiting Pantoprazole Sodium (Protonix Granules) 40 mg PO Q24H [facility] Last Admin: 10/07/17 16:23 Dose: 40 mg Propranolol HCl (Inderal La) 120 mg PO BEDTIME [facility] Last Admin: 10/07/17 21:24 Dose: 120 mg Tiotropium [place] (Spiriva Handihaler) 18 mcg INH DAILY@0700 [facility] Last Admin: 10/08/17 09:31 Dose: 1 cap Admin: 10/07/17 10:28 Dose: 1 cap Tizanidine HCl (Zanaflex) 4 mg PO BEDTIME PRN PRN Reason: muscle spasms Last Admin: 10/07/17 21:29 Dose: 4 mg - Assessment Assessment (Free Text/Narrative):: -Post op Laparotomy - Plan Plan (Free Text/Narrative):: -Pt received one unit packed RBC's today and Hgb is now 10, continue to monitor this -pt may start step 2 diet -Pt had a dose of factor VII -continue to monitor BP as it has been low this morning -Pt had DPC today and it went well, monitor lane
[2017-10-08] MEDS: Pantoprazole 40 MG Delayed-Release Granules 1 Packet PO SCH (16:31)
[2017-10-08] MEDS: MVI, Adult with Vitamin K 10 ML, Thiamine 100 MG, Chromium/Copper/Mang/Selen/Zn 1 ML in... IV SCH ×4 (16:31)
[2017-10-08] MEDS: Propranolol 60 MG Cap.ER PO SCH (20:09)
[2017-10-08] MEDS: ClonazePAM 0.5 MG Tab PO SCH (20:13)
[2017-10-08] MEDS: tiZANidine 4 MG Tab PO PRN (20:26)
[2017-10-08] MEDS ORDERED: Haloperidol Lactate 5 MG/ML SDV IVPUSH PRN (22:06)
[2017-10-09] MEDS: oxyCODONE 5 MG Tab PO PRN ×4 (02:35→20:39)
[2017-10-09] MEDS: Acetaminophen Soln 650 MG/20.3 ML UD Cup PO SCH ×4 (03:36→22:08)
[2017-10-09] MEDS: Misoprostol 100 MCG Tab PO SCH ×4 (05:45→22:08)
[2017-10-09] MEDS: Albuterol/Ipratropium 3.0-0.5 MG/3 ML Neb Soln INH SCH ×4 (07:25→22:05)
[2017-10-09] MEDS: Formoterol/Mometasone 200-5 MCG 8.8 GM Inhaler IH SCH ×2 (07:26→22:08)
[2017-10-09] MEDS: Tiotropium Inhaler 18 MCG Inhalation Powder Cap Kit of 5 INH SCH (07:27)
[2017-10-09] MEDS: Fluticasone Propionate Nasal Spray 16 GM Bottle NAS SCH (09:10)
[2017-10-09] MEDS: Celecoxib 200 MG Cap PO SCH (09:10)
[2017-10-09] MEDS: Furosemide 20 MG Tab PO SCH (09:10)
--- NOTE | 2017-10-09 09:23 | OR ---
DATE OF PROCEDURE: 10/08/2017 PREOPERATIVE DIAGNOSIS: Open abdominal incision. POSTOPERATIVE DIAGNOSIS: Open abdominal incision. PROCEDURE: Delayed primary closure of open abdominal incision. ANESTHESIA: Local plus IV sedation. RADIO HOST: ALFRED Stone INDICATION FOR PROCEDURE: This is a 52-year-old, 48 hours status post surgical open partial gastrectomy with Loc-en-Y reconstruction. The incision was felt to be inherently contaminated with a high risk for wound infection if primary closure was undertaken. Given this, she is to undergo a delayed primary closure at this time. Potential risks of the procedure including bleeding and infection were reviewed, and the patient wishes to proceed. DETAILS OF PROCEDURE: The patient was taken to the operating room, placed in the supine position. IV sedation was administered, after which the operative dressing was taken down, inspected, and found to be clean. The area was then prepped and draped. Bilateral subcostal transversus abdominis plane blocks were then placed using standard solution under continuous ultrasound guidance. Following this, the incision was anesthetized with 1% lidocaine mixed with Marcaine and irrigated with meropenem-containing saline solution. A 10-Amharic Yang-Jackson drain was placed through a stab wound inferior to the incision and the incision then closed with some 3-0 and 4-0 Vicryl stitch deep and lane for the skin. The drain was fixed with a 4-0 Vicryl stitch. The patient was taken to the recovery room in satisfactory condition. Skinny Keyes MD /[id number]
--- NOTE | 2017-10-09 15:15 | PCM.SURGPN ---
- General Info Date of Service: 10/09/17 POD#: 3 Post-Op Diagnosis: gastric ulcer disease Functional Status: Reports: Pain Controlled, Tolerating Diet, Ambulating, Urinating - Review of Systems General: Reports: No Symptoms HEENT: Reports: No Symptoms Pulmonary: Reports: No Symptoms Cardiovascular: Reports: No Symptoms Gastrointestinal: Reports: Abdominal Pain Genitourinary: Reports: No Symptoms Musculoskeletal: Reports: Other (abd muscle pain) Skin: Reports: No Symptoms Neurological: Reports: No Symptoms (Pt states that she is doing well but her pain is a little worse today she thinks because she has been up and moving around more. this pain wraps around her abd and back and she states it hurts worse when she takes in a deep breath. no other complaints) Systems Review Comment:: Pt states her pain continues today and wraps around the abdomen and back. pt states that this is a 3/10 pain when she takes the oxycodone. The nurse reported that the pt had hallucinations last night after taking her gabapentin - Patient Data Vitals - Most Recent: Last Vital Signs Temp 36.6 C 10/09/17 14:54 Pulse 64 10/09/17 14:57 Resp 16 10/09/17 14:54 BP 112/76 10/09/17 14:54 Pulse Ox 100 10/09/17 14:54 Weight - Most Recent: 51.075 kg I&O - Last 24 Hours: Intake & Output 10/09/17 10/09/17 10/09/17 06:59 14:59 22:59 Intake Total 1492 600 Output Total 828 1052 Balance 664 -452 Lab Results Last 24 Hrs: Laboratory Results - last 24 hr 10/09/17 10/09/17 Range/Units 04:18 04:18 WBC 8.7 (4.5-11.0) K/uL RBC 3.83 (3.30-5.50) M/uL Hgb 11.0 L (12.0-15.0) g/dL Hct 33.8 L (36.0-48.0) % MCV 88 (80-98) fL MCH 29 (27-31) pg MCHC 33 (32-36) % Plt Count 204 (150-400) K/uL Sodium 139 L (140-148) mmol/L Potassium 3.6 (3.6-5.2) mmol/L Chloride 103 (100-108) mmol/L Carbon Dioxide 29 (21-32) mmol/L Anion Gap 10.6 (5.0-14.0) mmol/L BUN 11 (7-18) mg/dL Creatinine 0.8 (0.6-1.0) mg/dL Est Cr Clr Drug Dosing 67.08 mL/min Estimated GFR (MDRD) > 60 (>60) Glucose 118 H (74-106) mg/dL Calcium 8.1 L (8.5-10.1) mg/dL Phosphorus 3.0 (2.5-4.9) mg/dL Total Bilirubin 0.5 (0.2-1.0) mg/dL AST 89 H (15-37) U/L ALT 54 (12-78) U/L Alkaline Phosphatase 748 H (46-116) U/L Total Protein 5.1 L (6.4-8.2) g/dL Albumin 2.2 L (3.4-5.0) g/dL Globulin 2.9 (2.3-3.5) g/dL Albumin/Globulin Ratio 0.8 L (1.2-2.2) Med Orders - Current: Current Medications Acetaminophen (Tylenol) 650 mg PO Q6H [facility] Last Admin: 10/09/17 09:10 Dose: 650 mg Albuterol (Ventolin Hfa) 0 gm INH Q4H PRN PRN Reason: Dyspnea Albuterol/Ipratropium (Duoneb 3.0-0.5 Mg/3 Ml) 3 ml INH QIDRT [facility] Last Admin: 10/09/17 14:50 Dose: 3 ml Albuterol/Ipratropium (Duoneb 3.0-0.5 Mg/3 Ml) 3 ml INH ASDIRECTED PRN PRN Reason: BREATHING Celecoxib (Celebrex) 200 mg PO DAILY@0800 [facility] Last Admin: 10/09/17 09:10 Dose: 200 mg Clonazepam (Klonopin) 0.5 mg PO BEDTIME [facility] Last Admin: 10/08/17 20:13 Dose: 0.5 mg Diphenhydramine HCl (Benadryl) 25 - 50 mg IVPUSH Q4H PRN PRN Reason: ITCHING Fluticasone Propionate (Flonase) 0 gm MEHUL DAILY [facility] Last Admin: 10/09/17 09:10 Dose: 2 spray Furosemide (Lasix) 20 mg PO DAILY [facility] Last Admin: 10/09/17 09:10 Dose: 20 mg Haloperidol Lactate (Haldol) 1.25 mg IVPUSH Q2H PRN PRN Reason: Agitation Hydroxyzine HCl (Vistaril) 75 - 100 mg IM Q4H PRN PRN Reason: pain Labetalol HCl (Normodyne) 5 - 15 mg IVPUSH Q1H PRN PRN Reason: SBP over 160 OR DBP over 95 Metoclopramide HCl (Reglan) 10 mg IVPUSH Q6H PRN PRN Reason: NAUSEA NOT CONTROL BY ZOFRAN Misoprostol (Cytotec) 100 mcg PO QID [facility] Last Admin: 10/09/17 09:10 Dose: 100 mcg Mometasone Furoate/Formoterol Fumar (Dulera 200-5 Mcg) 2 puff IH BIDRT [facility] Last Admin: 10/09/17 07:26 Dose: 2 puff Nitroglycerin (Nitrostat) 0.4 mg SL ASDIRECTED PRN PRN Reason: esophageal spasm Non-Formulary Medication (Minocycline [Minocin]) 50 mg PO BEDTIME [facility] Ondansetron HCl (Zofran) 4 mg IVPUSH Q4H PRN PRN Reason: Nausea/Vomiting Oxycodone HCl (Oxycodone) 5 - 10 mg PO Q4H PRN PRN Reason: Pain Last Admin: 10/09/17 14:58 Dose: 10 mg Pantoprazole Sodium (Protonix Granules) 40 mg PO Q24H [facility] Last Admin: 10/08/17 16:31 Dose: 40 mg Propranolol HCl (Inderal La) 120 mg PO BEDTIME [facility] Last Admin: 10/08/17 20:09 Dose: 120 mg Tiotropium [place] (Spiriva Handihaler) 18 mcg INH DAILY@0700 [facility] Last Admin: 10/09/17 07:27 Dose: 1 cap Tizanidine HCl (Zanaflex) 4 mg PO BEDTIME PRN PRN Reason: muscle spasms Last Admin: 10/08/17 20:26 Dose: 4 mg Discontinued Medications Acetaminophen (Tylenol Extra Strength) 1,000 mg PO ONETIME ONE Stop: 10/06/17 06:01 Last Admin: 10/06/17 06:32 Dose: 1,000 mg Albuterol/Ipratropium (Duoneb 3.0-0.5 Mg/3 Ml) 3 ml NEB ONETIME ONE Stop: 10/06/17 06:01 Last Admin: 10/06/17 09:57 Dose: 3 ml Bupivacaine HCl (Marcaine 0.5%) Confirm Administered Dose 50 ml .ROUTE .STK-MED ONE Stop: 10/08/17 06:40 Last Admin: 10/08/17 07:53 Dose: 10 ml Ropivacaine 25 ml/Dexamethasone 8 mg/Epinephrine HCl 0.4 mg/ Sodium Chloride 52.6 ml 0 ml NERVRT ASDIRECTED [facility] Last Admin: 10/06/17 10:16 Dose: 2 syringe Ropivacaine 25 ml/Dexamethasone 8 mg/Epinephrine HCl 0.4 mg/ Sodium Chloride 52.6 ml 0 ml NERVRT ASDIRECTED [facility] Last Admin: 10/08/17 07:49 Dose: 2 syringe Cyanocobalamin (Vitamin B12) 1,000 mcg IM ONETIME ONE Stop: 10/08/17 09:01 Last Admin: 10/08/17 10:38 Dose: 1,000 mcg Dexamethasone (Dexamethasone) Confirm Administered Dose 4 mg .ROUTE .STK-MED ONE Stop: 10/06/17 10:02 Factor VIIa (Recombinant) (Novoseven Rt) 2,000 mcg IVPUSH ONETIME ONE Stop: 10/07/17 15:51 Last Admin: 10/07/17 16:03 Dose: 2,000 mcg Factor VIIa (Recombinant) (Novoseven Rt) 2,000 mcg IVPUSH ONETIME STA Stop: 10/08/17 07:05 Last Admin: 10/08/17 07:11 Dose: 2,000 mcg Factor VIIa (Recombinant) (Novoseven Rt) 2,000 mcg IVPUSH ONETIME ONE Stop: 10/08/17 08:14 Last Admin: 10/08/17 08:34 Dose: 2,000 mcg Fentanyl (Sublimaze) Confirm Administered Dose 250 mcg .ROUTE .STK-MED ONE Stop: 10/06/17 10:01 Fentanyl (Sublimaze) Confirm Administered Dose 250 mcg .ROUTE .STK-MED ONE Stop: 10/06/17 12:04 Gabapentin (Neurontin) 300 mg PO ONETIME ONE Stop: 10/06/17 05:28 Last Admin: 10/06/17 06:32 Dose: 300 mg Gabapentin (Neurontin) 300 mg PO TID [facility] Last Admin: 10/08/17 20:13 Dose: 300 mg Glycopyrrolate (Robinul) Confirm Administered Dose 1 mg .ROUTE .STK-MED ONE Stop: 10/06/17 10:02 Heparin Sodium (Porcine) (Heparin Sodium) 5,000 units SUBCUT Q12H [facility] Last Admin: 10/07/17 07:52 Dose: 5,000 units Lidocaine HCl/Dextrose (Lidocaine 2 Gm/D5w 500 Ml) 2 gm in 500 mls @ 15 mls/hr IV .Q24H [facility] Stop: 10/07/17 14:00 Last Admin: 10/07/17 12:31 Dose: Not Given Dextrose/Lactated Ringer's (Dextrose 5%-Lactated Ringers) 1,000 mls @ 100 mls/ hr IV ASDIRECTED [facility] Last Admin: 10/07/17 12:28 Dose: 100 mls/hr Cefoxitin Sodium 2 gm/ Sodium (Chloride) 50 mls @ 100 mls/hr IV ONETIME ONE Stop: 10/06/17 09:59 Last Admin: 10/06/17 14:27 Dose: Not Given Lactated Ringer's (Ringers, Lactated) Confirm Administered Dose 1,000 mls @ as directed .ROUTE .STK-MED ONE Stop: 10/06/17 12:34 Dextrose/Lactated Ringer's (Dextrose 5%-Lactated Ringers) 1,000 mls @ 175 mls/ hr IV ASDIRECTED [facility] Last Admin: 10/07/17 05:34 Dose: 175 mls/hr Multivitamins/Minerals 10 ml/Thiamine HCl 100 mg/ Chromium/Copper/Manganese/ Seleni/Zn 1 ml/ Dextrose/Lactated Ringer's 1,012 mls @ 175 mls/hr IV DAILY@ 1600 [facility] Last Admin: 10/06/17 15:46 Dose: 175 mls/hr Cefoxitin Sodium 2 gm/ Sodium (Chloride) 50 mls @ 100 mls/hr IV Q6H [facility] Stop: 10/07/17 16:29 Last Admin: 10/07/17 16:21 Dose: 100 mls/hr Lactated Ringer's (Ringers, Lactated) 500 mls @ 500 mls/hr IV ASDIRECTED [facility] Stop: 10/06/17 23:29 Last Admin: 10/06/17 22:34 Dose: 500 mls/hr Lactated Ringer's (Ringers, Lactated) 500 mls @ 500 mls/hr IV ASDIRECTED [facility] Stop: 10/07/17 08:00 Last Admin: 10/07/17 07:44 Dose: 500 mls/hr Dextrose/Lactated Ringer's (Dextrose 5%-Lactated Ringers) 1,000 mls @ 100 mls/ hr IV ASDIRECTED [facility] Last Admin: 10/09/17 02:27 Dose: 100 mls/hr Multivitamins/Minerals 10 ml/Thiamine HCl 100 mg/ Chromium/Copper/Manganese/ Seleni/Zn 1 ml/ Dextrose/Lactated Ringer's 1,012 mls @ 100 mls/hr IV DAILY@ 1600 [facility] Last Admin: 10/08/17 16:31 Dose: 100 mls/hr Iohexol (Omnipaque-300) 50 ml PO .ASDIRECTED [facility] Stop: 10/07/17 04:04 Last Admin: 10/07/17 04:19 Dose: 50 ml Lidocaine HCl (Xylocaine 2%) 75 mg IVPUSH ONETIME ONE Stop: 10/06/17 08:01 Last Admin: 10/06/17 15:13 Dose: Not Given Lidocaine/Epinephrine (Xylocaine 1% With Epinephrine 1:100,000) Confirm Administered Dose 50 ml .ROUTE .STK-MED ONE Stop: 10/08/17 06:40 Last Admin: 10/08/17 07:53 Dose: 10 ml Meperidine HCl (Demerol [employer] 300 Mg In 30 Ml) 0 mg IV ASDIRECTED PRN; Protocol PRN Reason: Pain Last Admin: 10/08/17 11:09 Dose: 300 mg Meropenem (Merrem) Confirm Administered Dose 500 mg .ROUTE .STK-MED ONE Stop: 10/06/17 07:15 Last Admin: 10/06/17 11:19 Dose: 500 mg Meropenem (Merrem) Confirm Administered Dose 500 mg .ROUTE .STK-MED ONE Stop: 10/08/17 06:40 Last Admin: 10/08/17 07:53 Dose: 500 mg Midazolam HCl (Versed 1 Mg/Ml) Confirm Administered Dose 2 mg .ROUTE .STK-MED ONE Stop: 10/06/17 10:01 Midazolam HCl (Versed 1 Mg/Ml) Confirm Administered Dose 2 mg .ROUTE .STK-MED ONE Stop: 10/08/17 06:56 Miscellaneous Information (Remove Patch) 1 ea TRDERM ONETIME ONE Stop: 10/08/17 10:01 Last Admin: 10/08/17 10:44 Dose: Not Given Naloxone HCl (Narcan) 0.1 mg IV ASDIRECTED PRN PRN Reason: DECR RESP RATE Neostigmine Methylsulfate (Neostigmine) Confirm Administered Dose 5 mg .ROUTE .STK-MED ONE Stop: 10/06/17 10:02 Check Scopolamine (Patch) 0 each .XX DAILY [facility] Stop: 10/08/17 10:00 Last Admin: 10/08/17 10:37 Dose: Not Given Ondansetron HCl (Zofran) Confirm Administered Dose 4 mg .ROUTE .STK-MED ONE Stop: 10/06/17 10:02 Pantoprazole Sodium (Protonix Iv) 40 mg IVPUSH Q24H [facility] Last Admin: 10/06/17 15:46 Dose: 40 mg Propofol (Diprivan 20 Ml) Confirm Administered Dose 200 mg .ROUTE .STK-MED ONE Stop: 10/06/17 10:02 Propofol (Diprivan 20 Ml) Confirm Administered Dose 200 mg .ROUTE .STK-MED ONE Stop: 10/08/17 06:56 Propranolol HCl (Inderal La) 120 mg PO ONETIME ONE Stop: 10/07/17 08:01 Last Admin: 10/07/17 11:06 Dose: 120 mg Rocuronium [place] (Zemuron) Confirm Administered Dose 50 mg .ROUTE .STK-MED ONE Stop: 10/06/17 10:02 Scopolamine (Transderm-Scop) 1.5 mg TOP ONETIME ONE Stop: 10/06/17 05:34 Last Admin: 10/06/17 06:32 Dose: 1.5 mg Succinylcholine Chloride (Quelicin) Confirm Administered Dose 200 mg .ROUTE .STK -MED ONE Stop: 10/06/17 10:02 - Exam Wound/Incisions: Dressing Dry and Intact General: Alert, Oriented, Cooperative, No Acute Distress HEENT: Pupils Equal, EOMI Lungs: Clear to Auscultation, Normal Respiratory Effort Cardiovascular: Regular Rate, Regular Rhythm, No Murmurs Psy/Mental Status: Alert, Normal Affect, Normal Mood (Pt is AO X3 and very jovial and pleasant. pt is in no acute distress and ambulating well.) Physical Findings Comment:: pt is AO X3 and very pleasant today. pt is in no acute distress and ambulating well. - Problem List & Annotations (1) Status post laparotomy SNOMED Code(s): 089042779, 697889734, 284707454 Code(s): Z98.890 - OTHER SPECIFIED POSTPROCEDURAL STATES Status: Acute Current Visit: Yes Annotation/Comment:: resection of gastric ulcer and anantomosis - Problem List Review Problem List Initiated/Reviewed/Updated: Yes - My Orders Last 24 Hours: Active Orders 24 hr Category Date Time Status May Shower [RC] ASDIRECTED Care 10/09/17 07:52 Active CBC W/O DIFF,HEMOGRAM [HEME] Timed Lab 10/10/17 04:00 Ordered COMPREHENSIVE METABOLIC PN,CMP [CHEM] Timed Lab 10/10/17 04:00 Ordered Haloperidol Lactate [Haldol] Med 10/08/17 22:06 Active 1.25 mg IVPUSH Q2H PRN oxyCODONE Med 10/08/17 22:08 Active 5 - 10 mg PO Q4H PRN Convert IV to Saline Lock [OM.PC] Routine Oth 10/09/17 07:54 Ordered Remove Dressing [OM.PC] Routine Oth 10/09/17 07:52 Ordered Medication Orders Acetaminophen (Tylenol) 650 mg PO Q6H [facility] Last Admin: 10/09/17 09:10 Dose: 650 mg Admin: 10/09/17 03:36 Dose: 650 mg Admin: 10/08/17 21:03 Dose: 650 mg Admin: 10/08/17 16:31 Dose: 650 mg Admin: 10/08/17 10:35 Dose: 650 mg Admin: 10/08/17 04:46 Dose: Admin: 10/07/17 21:23 Dose: 650 mg Admin: 10/07/17 16:23 Dose: 650 mg Admin: 10/07/17 11:05 Dose: 650 mg Admin: 10/07/17 04:03 Dose: 650 mg Admin: 10/06/17 21:42 Dose: 650 mg Admin: 10/06/17 15:46 Dose: 650 mg Albuterol (Ventolin Hfa) 0 gm INH Q4H PRN PRN Reason: Dyspnea Albuterol/Ipratropium (Duoneb 3.0-0.5 Mg/3 Ml) 3 ml INH QIDRT [facility] Last Admin: 10/09/17 14:50 Dose: 3 ml Admin: 10/09/17 11:11 Dose: 3 ml Admin: 10/09/17 07:25 Dose: 3 ml Admin: 10/08/17 20:13 Dose: 3 ml Admin: 10/08/17 14:50 Dose: 3 ml Admin: 10/08/17 10:57 Dose: 3 ml Admin: 10/08/17 07:38 Dose: Not Given Admin: 10/07/17 21:23 Dose: 3 ml Admin: 10/07/17 14:54 Dose: Not Given Admin: 10/07/17 10:52 Dose: 3 ml Admin: 10/07/17 07:32 Dose: 3 ml Admin: 10/06/17 21:19 Dose: 3 ml Admin: 10/06/17 14:59 Dose: 3 ml Albuterol/Ipratropium (Duoneb 3.0-0.5 Mg/3 Ml) 3 ml INH ASDIRECTED PRN PRN Reason: BREATHING Celecoxib (Celebrex) 200 mg PO DAILY@0800 [facility] Last Admin: 10/09/17 09:10 Dose: 200 mg Admin: 10/08/17 10:34 Dose: 200 mg Admin: 10/07/17 07:51 Dose: 200 mg Clonazepam (Klonopin) 0.5 mg PO BEDTIME [facility] Last Admin: 10/08/17 20:13 Dose: 0.5 mg Admin: 10/07/17 21:29 Dose: 0.5 mg Diphenhydramine HCl (Benadryl) 25 - 50 mg IVPUSH Q4H PRN PRN Reason: ITCHING Fluticasone Propionate (Flonase) 0 gm MEHUL DAILY [facility] Last Admin: 10/09/17 09:10 Dose: 2 spray Admin: 10/08/17 10:35 Dose: 2 spray Admin: 10/07/17 11:05 Dose: 2 spray Furosemide (Lasix) 20 mg PO DAILY [facility] Last Admin: 10/09/17 09:10 Dose: 20 mg Admin: 10/08/17 10:36 Dose: 20 mg Admin: 10/07/17 11:06 Dose: 20 mg Haloperidol Lactate (Haldol) 1.25 mg IVPUSH Q2H PRN PRN Reason: Agitation Hydroxyzine HCl (Vistaril) 75 - 100 mg IM Q4H PRN PRN Reason: pain Labetalol HCl (Normodyne) 5 - 15 mg IVPUSH Q1H PRN PRN Reason: SBP over 160 OR DBP over 95 Metoclopramide HCl (Reglan) 10 mg IVPUSH Q6H PRN PRN Reason: NAUSEA NOT CONTROL BY ZOFRAN Misoprostol (Cytotec) 100 mcg PO QID [facility] Last Admin: 10/09/17 09:10 Dose: 100 mcg Admin: 10/09/17 05:45 Dose: 100 mcg Admin: 10/08/17 21:03 Dose: 100 mcg Admin: 10/08/17 16:31 Dose: 100 mcg Admin: 10/08/17 10:37 Dose: 100 mcg Admin: 10/08/17 05:14 Dose: Admin: 10/07/17 21:23 Dose: 100 mcg Admin: 10/07/17 16:23 Dose: 100 mcg Admin: 10/07/17 11:06 Dose: 100 mcg Mometasone Furoate/Formoterol Fumar (Dulera 200-5 Mcg) 2 puff IH BIDRT [facility] Last Admin: 10/09/17 07:26 Dose: 2 puff Admin: 10/08/17 20:09 Dose: 2 puff Admin: 10/08/17 09:31 Dose: 2 puff Admin: 10/07/17 21:23 Dose: 2 puff Admin: 10/07/17 07:34 Dose: 2 puff Admin: 10/06/17 21:19 Dose: 2 puff Nitroglycerin (Nitrostat) 0.4 mg SL ASDIRECTED PRN PRN Reason: esophageal spasm Non-Formulary Medication (Minocycline [Minocin]) 50 mg PO BEDTIME [facility] Ondansetron HCl (Zofran) 4 mg IVPUSH Q4H PRN PRN Reason: Nausea/Vomiting Oxycodone HCl (Oxycodone) 5 - 10 mg PO Q4H PRN PRN Reason: Pain Last Admin: 10/09/17 14:58 Dose: 10 mg Admin: 10/09/17 10:54 Dose: 10 mg Admin: 10/09/17 02:35 Dose: 10 mg Pantoprazole Sodium (Protonix Granules) 40 mg PO Q24H [facility] Last Admin: 10/08/17 16:31 Dose: 40 mg Admin: 10/07/17 16:23 Dose: 40 mg Propranolol HCl (Inderal La) 120 mg PO BEDTIME [facility] Last Admin: 10/08/17 20:09 Dose: 120 mg Admin: 10/07/17 21:24 Dose: 120 mg Tiotropium [place] (Spiriva Handihaler) 18 mcg INH DAILY@0700 [facility] Last Admin: 10/09/17 07:27 Dose: 1 cap Admin: 10/08/17 09:31 Dose: 1 cap Admin: 10/07/17 10:28 Dose: 1 cap Tizanidine HCl (Zanaflex) 4 mg PO BEDTIME PRN PRN Reason: muscle spasms Last Admin: 10/08/17 20:26 Dose: 4 mg Admin: 10/07/17 21:29 Dose: 4 mg - Assessment Assessment (Free Text/Narrative):: status post laparotomy - Plan Plan (Free Text/Narrative):: -continue on step 2 diet -DC gabapentin -ducolax 2 tablets BID -Collace BID -may continue with the oxycodone for pain
[2017-10-09] MEDS: Pantoprazole 40 MG Delayed-Release Granules 1 Packet PO SCH (17:34)
[2017-10-09] MEDS: ClonazePAM 0.5 MG Tab PO SCH (22:08)
[2017-10-09] MEDS: tiZANidine 4 MG Tab PO PRN (22:08)
[2017-10-09] MEDS: Propranolol 60 MG Cap.ER PO SCH (22:08)
[2017-10-10] MEDS: oxyCODONE 5 MG Tab PO PRN ×4 (03:20→16:27)
[2017-10-10] MEDS: Acetaminophen Soln 650 MG/20.3 ML UD Cup PO SCH ×4 (03:20→21:09)
[2017-10-10] MEDS: Misoprostol 100 MCG Tab PO SCH ×4 (06:14→21:09)
[2017-10-10] MEDS: Albuterol/Ipratropium 3.0-0.5 MG/3 ML Neb Soln INH SCH ×4 (07:27→21:26)
[2017-10-10] MEDS: Formoterol/Mometasone 200-5 MCG 8.8 GM Inhaler IH SCH ×2 (07:27→21:06)
[2017-10-10] MEDS: Tiotropium Inhaler 18 MCG Inhalation Powder Cap Kit of 5 INH SCH (07:27)
[2017-10-10] MEDS: Celecoxib 200 MG Cap PO SCH (07:32)
--- NOTE | 2017-10-10 07:52 | PCM.SURGPN ---
- General Info Date of Service: 10/10/17 POD#: 4 Post-Op Diagnosis: Gastric Ulcer disease Functional Status: Reports: Pain Controlled, Tolerating Diet, Ambulating, Urinating, Incentive Spirometry - Review of Systems General: Reports: No Symptoms HEENT: Reports: No Symptoms Pulmonary: Reports: No Symptoms Cardiovascular: Reports: Edema (complains of bilat lower leg edema) Gastrointestinal: Reports: Abdominal Pain Genitourinary: Reports: No Symptoms Musculoskeletal: Reports: Other (abd muscle pain) Skin: Reports: Other (states TABITHA drains are draining alot from wound) Neurological: Reports: No Symptoms Psychiatric: Reports: No Symptoms - Patient Data Vitals - Most Recent: Last Vital Signs Temp 36.9 C 10/10/17 07:00 Pulse 52 L 10/10/17 07:30 Resp 16 10/10/17 07:00 BP 102/65 10/10/17 07:00 Pulse Ox 99 10/10/17 07:30 Weight - Most Recent: 51.075 kg I&O - Last 24 Hours: Intake & Output 10/09/17 10/10/17 10/10/17 22:59 06:59 14:59 Intake Total 240 240 Output Total 230 30 Balance 240 10 -30 Lab Results Last 24 Hrs: Laboratory Results - last 24 hr 10/10/17 10/10/17 Range/Units 04:30 04:30 WBC 5.5 (4.5-11.0) K/uL RBC 3.85 (3.30-5.50) M/uL Hgb 11.1 L (12.0-15.0) g/dL Hct 34.2 L (36.0-48.0) % MCV 89 (80-98) fL MCH 29 (27-31) pg MCHC 33 (32-36) % Plt Count 229 (150-400) K/uL Sodium 143 (140-148) mmol/L Potassium 3.4 L (3.6-5.2) mmol/L Chloride 107 (100-108) mmol/L Carbon Dioxide 29 (21-32) mmol/L Anion Gap 10.4 (5.0-14.0) mmol/L BUN 7 (7-18) mg/dL Creatinine 0.8 (0.6-1.0) mg/dL Est Cr Clr Drug Dosing 67.08 mL/min Estimated GFR (MDRD) > 60 (>60) Glucose 82 (74-106) mg/dL Calcium 7.7 L (8.5-10.1) mg/dL Total Bilirubin 0.5 (0.2-1.0) mg/dL AST 72 H (15-37) U/L ALT 49 (12-78) U/L Alkaline Phosphatase 691 H (46-116) U/L Total Protein 4.7 L (6.4-8.2) g/dL Albumin 2.0 L (3.4-5.0) g/dL Globulin 2.7 (2.3-3.5) g/dL Albumin/Globulin Ratio 0.7 L (1.2-2.2) Med Orders - Current: Current Medications Acetaminophen (Tylenol) 650 mg PO Q6H [facility] Last Admin: 10/10/17 03:20 Dose: 650 mg Albuterol (Ventolin Hfa) 0 gm INH Q4H PRN PRN Reason: Dyspnea Albuterol/Ipratropium (Duoneb 3.0-0.5 Mg/3 Ml) 3 ml INH QIDRT [facility] Last Admin: 10/10/17 07:27 Dose: 3 ml Albuterol/Ipratropium (Duoneb 3.0-0.5 Mg/3 Ml) 3 ml INH ASDIRECTED PRN PRN Reason: BREATHING Celecoxib (Celebrex) 200 mg PO DAILY@0800 [facility] Last Admin: 10/10/17 07:32 Dose: 200 mg Clonazepam (Klonopin) 0.5 mg PO BEDTIME [facility] Last Admin: 10/09/17 22:08 Dose: 0.5 mg Diphenhydramine HCl (Benadryl) 25 - 50 mg IVPUSH Q4H PRN PRN Reason: ITCHING Fluticasone Propionate (Flonase) 0 gm MEHUL DAILY [facility] Last Admin: 10/09/17 09:10 Dose: 2 spray Furosemide (Lasix) 20 mg PO DAILY [facility] Last Admin: 10/09/17 09:10 Dose: 20 mg Haloperidol Lactate (Haldol) 1.25 mg IVPUSH Q2H PRN PRN Reason: Agitation Hydroxyzine HCl (Vistaril) 75 - 100 mg IM Q4H PRN PRN Reason: pain Labetalol HCl (Normodyne) 5 - 15 mg IVPUSH Q1H PRN PRN Reason: SBP over 160 OR DBP over 95 Metoclopramide HCl (Reglan) 10 mg IVPUSH Q6H PRN PRN Reason: NAUSEA NOT CONTROL BY ZOFRAN Misoprostol (Cytotec) 100 mcg PO QID [facility] Last Admin: 10/10/17 06:14 Dose: 100 mcg Mometasone Furoate/Formoterol Fumar (Dulera 200-5 Mcg) 2 puff IH BIDRT [facility] Last Admin: 10/10/17 07:27 Dose: 2 puff Nitroglycerin (Nitrostat) 0.4 mg SL ASDIRECTED PRN PRN Reason: esophageal spasm Non-Formulary Medication (Minocycline [Minocin]) 50 mg PO BEDTIME [facility] Ondansetron HCl (Zofran) 4 mg IVPUSH Q4H PRN PRN Reason: Nausea/Vomiting Oxycodone HCl (Oxycodone) 5 - 10 mg PO Q4H PRN PRN Reason: Pain Last Admin: 10/10/17 07:33 Dose: 10 mg Pantoprazole Sodium (Protonix Granules) 40 mg PO Q24H [facility] Last Admin: 10/09/17 17:34 Dose: 40 mg Propranolol HCl (Inderal La) 120 mg PO BEDTIME [facility] Last Admin: 10/09/17 22:08 Dose: 120 mg Tiotropium Saranac (Spiriva Handihaler) 18 mcg INH DAILY@0700 [facility] Last Admin: 10/10/17 07:27 Dose: 1 cap Tizanidine HCl (Zanaflex) 4 mg PO BEDTIME PRN PRN Reason: muscle spasms Last Admin: 10/09/17 22:08 Dose: 4 mg Discontinued Medications Acetaminophen (Tylenol Extra Strength) 1,000 mg PO ONETIME ONE Stop: 10/06/17 06:01 Last Admin: 10/06/17 06:32 Dose: 1,000 mg Albuterol/Ipratropium (Duoneb 3.0-0.5 Mg/3 Ml) 3 ml NEB ONETIME ONE Stop: 10/06/17 06:01 Last Admin: 10/06/17 09:57 Dose: 3 ml Bupivacaine HCl (Marcaine 0.5%) Confirm Administered Dose 50 ml .ROUTE .STK-MED ONE Stop: 10/08/17 06:40 Last Admin: 10/08/17 07:53 Dose: 10 ml Ropivacaine 25 ml/Dexamethasone 8 mg/Epinephrine HCl 0.4 mg/ Sodium Chloride 52.6 ml 0 ml NERVRT ASDIRECTED [facility] Last Admin: 10/06/17 10:16 Dose: 2 syringe Ropivacaine 25 ml/Dexamethasone 8 mg/Epinephrine HCl 0.4 mg/ Sodium Chloride 52.6 ml 0 ml NERVRT ASDIRECTED [facility] Last Admin: 10/08/17 07:49 Dose: 2 syringe Cyanocobalamin (Vitamin B12) 1,000 mcg IM ONETIME ONE Stop: 10/08/17 09:01 Last Admin: 10/08/17 10:38 Dose: 1,000 mcg Dexamethasone (Dexamethasone) Confirm Administered Dose 4 mg .ROUTE .STK-MED ONE Stop: 10/06/17 10:02 Factor VIIa (Recombinant) (Novoseven Rt) 2,000 mcg IVPUSH ONETIME ONE Stop: 10/07/17 15:51 Last Admin: 10/07/17 16:03 Dose: 2,000 mcg Factor VIIa (Recombinant) (Novoseven Rt) 2,000 mcg IVPUSH ONETIME STA Stop: 10/08/17 07:05 Last Admin: 10/08/17 07:11 Dose: 2,000 mcg Factor VIIa (Recombinant) (Novoseven Rt) 2,000 mcg IVPUSH ONETIME ONE Stop: 10/08/17 08:14 Last Admin: 10/08/17 08:34 Dose: 2,000 mcg Fentanyl (Sublimaze) Confirm Administered Dose 250 mcg .ROUTE .STK-MED ONE Stop: 10/06/17 10:01 Fentanyl (Sublimaze) Confirm Administered Dose 250 mcg .ROUTE .STK-MED ONE Stop: 10/06/17 12:04 Gabapentin (Neurontin) 300 mg PO ONETIME ONE Stop: 10/06/17 05:28 Last Admin: 10/06/17 06:32 Dose: 300 mg Gabapentin (Neurontin) 300 mg PO TID [facility] Last Admin: 10/08/17 20:13 Dose: 300 mg Glycopyrrolate (Robinul) Confirm Administered Dose 1 mg .ROUTE .STK-MED ONE Stop: 10/06/17 10:02 Heparin Sodium (Porcine) (Heparin Sodium) 5,000 units SUBCUT Q12H [facility] Last Admin: 10/07/17 07:52 Dose: 5,000 units Lidocaine HCl/Dextrose (Lidocaine 2 Gm/D5w 500 Ml) 2 gm in 500 mls @ 15 mls/hr IV .Q24H [facility] Stop: 10/07/17 14:00 Last Admin: 10/07/17 12:31 Dose: Not Given Dextrose/Lactated Ringer's (Dextrose 5%-Lactated Ringers) 1,000 mls @ 100 mls/ hr IV ASDIRECTED [facility] Last Admin: 10/07/17 12:28 Dose: 100 mls/hr Cefoxitin Sodium 2 gm/ Sodium (Chloride) 50 mls @ 100 mls/hr IV ONETIME ONE Stop: 10/06/17 09:59 Last Admin: 10/06/17 14:27 Dose: Not Given Lactated Ringer's (Ringers, Lactated) Confirm Administered Dose 1,000 mls @ as directed .ROUTE .K-MED ONE Stop: 10/06/17 12:34 Dextrose/Lactated Ringer's (Dextrose 5%-Lactated Ringers) 1,000 mls @ 175 mls/ hr IV ASDIRECTED [facility] Last Admin: 10/07/17 05:34 Dose: 175 mls/hr Multivitamins/Minerals 10 ml/Thiamine HCl 100 mg/ Chromium/Copper/Manganese/ Seleni/Zn 1 ml/ Dextrose/Lactated Ringer's 1,012 mls @ 175 mls/hr IV DAILY@ 1600 [facility] Last Admin: 10/06/17 15:46 Dose: 175 mls/hr Cefoxitin Sodium 2 gm/ Sodium (Chloride) 50 mls @ 100 mls/hr IV Q6H [facility] Stop: 10/07/17 16:29 Last Admin: 10/07/17 16:21 Dose: 100 mls/hr Lactated Ringer's (Ringers, Lactated) 500 mls @ 500 mls/hr IV ASDIRECTED [facility] Stop: 10/06/17 23:29 Last Admin: 10/06/17 22:34 Dose: 500 mls/hr Lactated Ringer's (Ringers, Lactated) 500 mls @ 500 mls/hr IV ASDIRECTED [facility] Stop: 10/07/17 08:00 Last Admin: 10/07/17 07:44 Dose: 500 mls/hr Dextrose/Lactated Ringer's (Dextrose 5%-Lactated Ringers) 1,000 mls @ 100 mls/ hr IV ASDIRECTED [facility] Last Admin: 10/09/17 02:27 Dose: 100 mls/hr Multivitamins/Minerals 10 ml/Thiamine HCl 100 mg/ Chromium/Copper/Manganese/ Seleni/Zn 1 ml/ Dextrose/Lactated Ringer's 1,012 mls @ 100 mls/hr IV DAILY@ 1600 [facility] Last Admin: 10/08/17 16:31 Dose: 100 mls/hr Iohexol (Omnipaque-300) 50 ml PO .ASDIRECTED STA Stop: 10/07/17 04:04 Last Admin: 10/07/17 04:19 Dose: 50 ml Lidocaine HCl (Xylocaine 2%) 75 mg IVPUSH ONETIME ONE Stop: 10/06/17 08:01 Last Admin: 10/06/17 15:13 Dose: Not Given Lidocaine/Epinephrine (Xylocaine 1% With Epinephrine 1:100,000) Confirm Administered Dose 50 ml .ROUTE .STK-MED ONE Stop: 10/08/17 06:40 Last Admin: 10/08/17 07:53 Dose: 10 ml Meperidine HCl (Demerol Slate Roofer 300 Mg In 30 Ml) 0 mg IV ASDIRECTED PRN; Protocol PRN Reason: Pain Last Admin: 10/08/17 11:09 Dose: 300 mg Meropenem (Merrem) Confirm Administered Dose 500 mg .ROUTE .STK-MED ONE Stop: 10/06/17 07:15 Last Admin: 10/06/17 11:19 Dose: 500 mg Meropenem (Merrem) Confirm Administered Dose 500 mg .ROUTE .STK-MED ONE Stop: 10/08/17 06:40 Last Admin: 10/08/17 07:53 Dose: 500 mg Midazolam HCl (Versed 1 Mg/Ml) Confirm Administered Dose 2 mg .ROUTE .STK-MED ONE Stop: 10/06/17 10:01 Midazolam HCl (Versed 1 Mg/Ml) Confirm Administered Dose 2 mg .ROUTE .STK-MED ONE Stop: 10/08/17 06:56 Miscellaneous Information (Remove Patch) 1 ea TRDERM ONETIME ONE Stop: 10/08/17 10:01 Last Admin: 10/08/17 10:44 Dose: Not Given Naloxone HCl (Narcan) 0.1 mg IV ASDIRECTED PRN PRN Reason: DECR RESP RATE Neostigmine Methylsulfate (Neostigmine) Confirm Administered Dose 5 mg .ROUTE .STK-MED ONE Stop: 10/06/17 10:02 Check Scopolamine (Patch) 0 each .XX DAILY [facility] Stop: 10/08/17 10:00 Last Admin: 10/08/17 10:37 Dose: Not Given Ondansetron HCl (Zofran) Confirm Administered Dose 4 mg .ROUTE .STK-MED ONE Stop: 10/06/17 10:02 Pantoprazole Sodium (Protonix Iv) 40 mg IVPUSH Q24H [facility] Last Admin: 10/06/17 15:46 Dose: 40 mg Propofol (Diprivan 20 Ml) Confirm Administered Dose 200 mg .ROUTE .STK-MED ONE Stop: 10/06/17 10:02 Propofol (Diprivan 20 Ml) Confirm Administered Dose 200 mg .ROUTE .STK-MED ONE Stop: 10/08/17 06:56 Propranolol HCl (Inderal La) 120 mg PO ONETIME ONE Stop: 10/07/17 08:01 Last Admin: 10/07/17 11:06 Dose: 120 mg Rocuronium Saranac (Zemuron) Confirm Administered Dose 50 mg .ROUTE .STK-MED ONE Stop: 10/06/17 10:02 Scopolamine (Transderm-Scop) 1.5 mg TOP ONETIME ONE Stop: 10/06/17 05:34 Last Admin: 10/06/17 06:32 Dose: 1.5 mg Succinylcholine Chloride (Quelicin) Confirm Administered Dose 200 mg .ROUTE .STK -MED ONE Stop: 10/06/17 10:02 - Exam Wound/Incisions: Healing Well, Dressing Dry and Intact General: Alert, Oriented, Cooperative HEENT: Pupils Equal Lungs: Clear to Auscultation, Normal Respiratory Effort Cardiovascular: Regular Rate, Regular Rhythm, No Murmurs, Other (pt has bilat lower leg edema, less than 1+) Skin: Warm, Dry Neurological: Normal Gait, Normal Speech Psy/Mental Status: Alert, Normal Affect, Normal Mood Physical Findings Comment:: Pt is AO X3 and very pleasant today. Pt is in bed with legs elevated on pillows and has bilat lower leg edema that is less than 1+ and mostly in the ankle area. Pts incision is seen without erythema or drainage from the incision. - Problem List & Annotations (1) Status post laparotomy SNOMED Code(s): 272238496, 609286432, [id number] Code(s): Z98.890 - OTHER SPECIFIED POSTPROCEDURAL STATES Status: Acute Current Visit: Yes Annotation/Comment:: resection of gastric ulcer and anantomosis - Problem List Review Problem List Initiated/Reviewed/Updated: Yes - My Orders Last 24 Hours: Active Orders 24 hr Category Date Time Status May Shower [RC] ASDIRECTED Care 10/09/17 07:52 Active Convert IV to Saline Lock [OM.PC] Routine Oth 10/09/17 07:54 Ordered Remove Dressing [OM.PC] Routine Oth 10/09/17 07:52 Ordered Medication Orders Acetaminophen (Tylenol) 650 mg PO Q6H [facility] Last Admin: 10/10/17 03:20 Dose: 650 mg Admin: 10/09/17 22:08 Dose: 650 mg Admin: 10/09/17 17:34 Dose: 650 mg Admin: 10/09/17 09:10 Dose: 650 mg Admin: 10/09/17 03:36 Dose: 650 mg Admin: 10/08/17 21:03 Dose: 650 mg Admin: 10/08/17 16:31 Dose: 650 mg Admin: 10/08/17 10:35 Dose: 650 mg Admin: 10/08/17 04:46 Dose: Admin: 10/07/17 21:23 Dose: 650 mg Admin: 10/07/17 16:23 Dose: 650 mg Admin: 10/07/17 11:05 Dose: 650 mg Admin: 10/07/17 04:03 Dose: 650 mg Admin: 10/06/17 21:42 Dose: 650 mg Admin: 10/06/17 15:46 Dose: 650 mg Albuterol (Ventolin Hfa) 0 gm INH Q4H PRN PRN Reason: Dyspnea Albuterol/Ipratropium (Duoneb 3.0-0.5 Mg/3 Ml) 3 ml INH QIDRT [facility] Last Admin: 10/10/17 07:27 Dose: 3 ml Admin: 10/09/17 22:05 Dose: 3 ml Admin: 10/09/17 14:50 Dose: 3 ml Admin: 10/09/17 11:11 Dose: 3 ml Admin: 10/09/17 07:25 Dose: 3 ml Admin: 10/08/17 20:13 Dose: 3 ml Admin: 10/08/17 14:50 Dose: 3 ml Admin: 10/08/17 10:57 Dose: 3 ml Admin: 10/08/17 07:38 Dose: Not Given Admin: 10/07/17 21:23 Dose: 3 ml Admin: 10/07/17 14:54 Dose: Not Given Admin: 10/07/17 10:52 Dose: 3 ml Admin: 10/07/17 07:32 Dose: 3 ml Admin: 10/06/17 21:19 Dose: 3 ml Admin: 10/06/17 14:59 Dose: 3 ml Albuterol/Ipratropium (Duoneb 3.0-0.5 Mg/3 Ml) 3 ml INH ASDIRECTED PRN PRN Reason: BREATHING Celecoxib (Celebrex) 200 mg PO DAILY@0800 [facility] Last Admin: 10/10/17 07:32 Dose: 200 mg Admin: 10/09/17 09:10 Dose: 200 mg Admin: 10/08/17 10:34 Dose: 200 mg Admin: 10/07/17 07:51 Dose: 200 mg Clonazepam (Klonopin) 0.5 mg PO BEDTIME [facility] Last Admin: 10/09/17 22:08 Dose: 0.5 mg Admin: 10/08/17 20:13 Dose: 0.5 mg Admin: 10/07/17 21:29 Dose: 0.5 mg Diphenhydramine HCl (Benadryl) 25 - 50 mg IVPUSH Q4H PRN PRN Reason: ITCHING Fluticasone Propionate (Flonase) 0 gm MEHUL DAILY [facility] Last Admin: 10/09/17 09:10 Dose: 2 spray Admin: 10/08/17 10:35 Dose: 2 spray Admin: 10/07/17 11:05 Dose: 2 spray Furosemide (Lasix) 20 mg PO DAILY [facility] Last Admin: 10/09/17 09:10 Dose: 20 mg Admin: 10/08/17 10:36 Dose: 20 mg Admin: 10/07/17 11:06 Dose: 20 mg Haloperidol Lactate (Haldol) 1.25 mg IVPUSH Q2H PRN PRN Reason: Agitation Hydroxyzine HCl (Vistaril) 75 - 100 mg IM Q4H PRN PRN Reason: pain Labetalol HCl (Normodyne) 5 - 15 mg IVPUSH Q1H PRN PRN Reason: SBP over 160 OR DBP over 95 Metoclopramide HCl (Reglan) 10 mg IVPUSH Q6H PRN PRN Reason: NAUSEA NOT CONTROL BY ZOFRAN Misoprostol (Cytotec) 100 mcg PO QID [facility] Last Admin: 10/10/17 06:14 Dose: 100 mcg Admin: 10/09/17 22:08 Dose: 100 mcg Admin: 10/09/17 17:34 Dose: 100 mcg Admin: 10/09/17 09:10 Dose: 100 mcg Admin: 10/09/17 05:45 Dose: 100 mcg Admin: 10/08/17 21:03 Dose: 100 mcg Admin: 10/08/17 16:31 Dose: 100 mcg Admin: 10/08/17 10:37 Dose: 100 mcg Admin: 10/08/17 05:14 Dose: Admin: 10/07/17 21:23 Dose: 100 mcg Admin: 10/07/17 16:23 Dose: 100 mcg Admin: 10/07/17 11:06 Dose: 100 mcg Mometasone Furoate/Formoterol Fumar (Dulera 200-5 Mcg) 2 puff IH BIDRT [facility] Last Admin: 10/10/17 07:27 Dose: 2 puff Admin: 10/09/17 22:08 Dose: 2 puff Admin: 10/09/17 07:26 Dose: 2 puff Admin: 10/08/17 20:09 Dose: 2 puff Admin: 10/08/17 09:31 Dose: 2 puff Admin: 10/07/17 21:23 Dose: 2 puff Admin: 10/07/17 07:34 Dose: 2 puff Admin: 10/06/17 21:19 Dose: 2 puff Nitroglycerin (Nitrostat) 0.4 mg SL ASDIRECTED PRN PRN Reason: esophageal spasm Non-Formulary Medication (Minocycline [Minocin]) 50 mg PO BEDTIME [facility] Ondansetron HCl (Zofran) 4 mg IVPUSH Q4H PRN PRN Reason: Nausea/Vomiting Oxycodone HCl (Oxycodone) 5 - 10 mg PO Q4H PRN PRN Reason: Pain Last Admin: 10/10/17 07:33 Dose: 10 mg Admin: 10/10/17 03:20 Dose: 10 mg Admin: 10/09/17 20:39 Dose: 10 mg Admin: 10/09/17 14:58 Dose: 10 mg Admin: 10/09/17 10:54 Dose: 10 mg Admin: 10/09/17 02:35 Dose: 10 mg Pantoprazole Sodium (Protonix Granules) 40 mg PO Q24H [facility] Last Admin: 10/09/17 17:34 Dose: 40 mg Admin: 10/08/17 16:31 Dose: 40 mg Admin: 10/07/17 16:23 Dose: 40 mg Propranolol HCl (Inderal La) 120 mg PO BEDTIME [facility] Last Admin: 10/09/17 22:08 Dose: 120 mg Admin: 10/08/17 20:09 Dose: 120 mg Admin: 10/07/17 21:24 Dose: 120 mg Tiotropium Saranac (Spiriva Handihaler) 18 mcg INH DAILY@0700 [facility] Last Admin: 10/10/17 07:27 Dose: 1 cap Admin: 10/09/17 07:27 Dose: 1 cap Admin: 10/08/17 09:31 Dose: 1 cap Admin: 10/07/17 10:28 Dose: 1 cap Tizanidine HCl (Zanaflex) 4 mg PO BEDTIME PRN PRN Reason: muscle spasms Last Admin: 10/09/17 22:08 Dose: 4 mg Admin: 10/08/17 20:26 Dose: 4 mg Admin: 10/07/17 21:29 Dose: 4 mg - Assessment Assessment (Free Text/Narrative):: status post laparotomy - Plan Plan (Free Text/Narrative):: -We will remove TABITHA drains #1 and #2 today -we will give 20 mg lasix IV today for the edema -we will give KCL 80 mg orally -planning for discharge tomorrow
[2017-10-10] MEDS: Fluticasone Propionate Nasal Spray 16 GM Bottle NAS SCH (09:05)
[2017-10-10] MEDS: Furosemide 20 MG Tab PO SCH (09:05)
[2017-10-10] MEDS ORDERED: Furosemide 20 MG/2 ML VIAL IVPUSH ONE ×2 (09:30→16:46)
[2017-10-10] MEDS: Potassium Chloride 20 MEQ Tab.ER PO SCH ×2 (09:48→21:08)
[2017-10-10] MEDS: Pantoprazole 40 MG Delayed-Release Granules 1 Packet PO SCH (15:18)
[2017-10-10] MEDS ORDERED: Potassium Chloride 20 MEQ Tab.ER PO ONE (16:46)
[2017-10-10] MEDS: Propranolol 60 MG Cap.ER PO SCH (21:07)
[2017-10-10] MEDS: ClonazePAM 0.5 MG Tab PO SCH (21:35)
[2017-10-11] MEDS: Acetaminophen Soln 650 MG/20.3 ML UD Cup PO SCH ×2 (03:39→09:45)
[2017-10-11] MEDS: oxyCODONE 5 MG Tab PO PRN ×2 (03:39→08:03)
[2017-10-11] MEDS: Misoprostol 100 MCG Tab PO SCH ×2 (05:18→09:45)
[2017-10-11 07:12] VITALS: BP 114/76
[2017-10-11] MEDS: Albuterol/Ipratropium 3.0-0.5 MG/3 ML Neb Soln INH SCH (07:31)
[2017-10-11] MEDS: Tiotropium Inhaler 18 MCG Inhalation Powder Cap Kit of 5 INH SCH (07:38)
[2017-10-11] MEDS: Formoterol/Mometasone 200-5 MCG 8.8 GM Inhaler IH SCH (07:38)
[2017-10-11] MEDS: Fluticasone Propionate Nasal Spray 16 GM Bottle NAS SCH (08:04)
[2017-10-11] MEDS: Furosemide 20 MG Tab PO SCH (08:05)
[2017-10-11] MEDS: Celecoxib 200 MG Cap PO SCH (08:05)
[2017-10-11] MEDS ORDERED: Potassium Chloride 20 MEQ Tab.ER PO ONE (08:30)
--- NOTE | 2017-10-13 08:42 | OR ---
DATE OF PROCEDURE: 10/06/2017 PREOPERATIVE DIAGNOSES: 1. Persistent gastric ulcer, refractory to medical management. 2. Extensive intraabdominal adhesions. 3. Foreshortened mesentery requiring small bowel resection. 4. Adequate Loc limb length, status post initial resection, requiring additional small bowel resection and anastomosis to restore adequate Loc limb length (92264). 5. Placement of Interceed mesh to limit pelvic and abdominal wall adhesions to the underlying viscera ([id number]). POSTOPERATIVE DIAGNOSES: 1. Persistent gastric ulcer, refractory to medical management. 2. Extensive intraabdominal adhesions. 3. Foreshortened mesentery requiring small bowel resection. 4. Adequate Loc limb length, status post initial resection, requiring additional small bowel resection and anastomosis to restore adequate Loc limb length (00875). 5. Placement of Interceed mesh to limit pelvic and abdominal wall adhesions to the underlying viscera ([id number]). ANESTHESIA: General. ASSISTANTS: 1. Sharon Gamboa PA-C. 2. JOSE Stone. 3. JOSE Bae. INDICATION FOR PROCEDURE: This is a 52-year-old female, who was recently admitted to the [facility] with a bleeding ulcer in the area of the distal stomach adjacent to the gastrojejunostomy. The patient is status post previous complicated ulcer surgery with a distal gastrectomy with a Loc-en-Y reconstruction. She has had this ulcer present, off and on, since the resection around a year ago, and most recently was hospitalized at [place], having bled down to a hemoglobin of 5. This is despite ongoing treatment with proton pump inhibitors, as well as intermittent Carafate. Given this, the plan is to proceed with a total or near total gastrectomy with a Loc-en-Y reconstruction. Potential risks including bleeding, infection, injury to underlying viscera, possible leaks from GI tract closures were all reviewed, and the patient wishes to proceed. DETAILS OF PROCEDURE: The patient was taken to the operating room and placed in a supine position. After general endotracheal anesthesia was induced, a Dumont catheter was inserted and the abdomen prepped and draped. Bilateral subcostal transversus abdominis plane blocks were placed using standard solution with direct visualization of the needle location with ultrasound. Following this, an upper midline incision was made from the xiphoid down to the level just below the umbilicus and carried down through the full-thickness abdominal wall. Significant adhesions were then encountered between the small bowel, omentum, and overlying abdominal wall, as well as between loops of small bowel and other viscera. These were gradually all taken down, and this then allowed dissection of the area of the jejunojejunostomy, identifying the components of that Loc-en-Y anatomy. An Jing tube was then placed per Anesthesia and directed through the esophagogastric junction to the stomach and through the Loc-en-Y gastrojejunostomy into the Loc limb. The safest place for the encirclement of the stomach appeared to be essentially at the esophagogastric junction. This area was encircled, and after the Jing tube was then pulled back, the esophagogastric junction was divided with a LUIS FERNANDO black load; dissection then downward identified the gastrojejunostomy. The small bowel was divided just distal to the gastrojejunostomy. A palpable hard ulcer was noted at that anastomosis, consistent with the patient's history. The mesentery of the small bowel was then divided with mesenteric lane, and the vascular and soft tissue attachments to the remaining stomach were then divided with a combination of vascular and mesenteric lane, and the specimen consisting of the remainder of the stomach and associated gastrojejunostomy, including the ulcer, were delivered from the field. At this point, there was noted to be a significant foreshortening of the Loc limb mesentery, due to postoperative scarring. As this was freed up, the proximal end of the Loc limb was noted to be somewhat ischemic. A portion of this was resected with a LUIS FERNANDO stapler. Further mobilization allowed easy mobility of the remaining Loc limb up to the distalmost esophagus. The patient was noted to have, at this point, an inadequate length of small bowel length in terms of the Loc limb. This measured at this point around 40 cm. Given this, the biliopancreatic limb was detached from the existing jejunojejunostomy and moved down such that the new Loc limb would be in the range of 100 cm. This was then reestablished with an anastomosis in a [id number] manner between the biliopancreatic limb and that point 100 cm distal to the new end of the Loc limb with a [id number] enteroenterostomy using LUIS FERNANDO 60 mm stapler, common opening was closed transversely with the same stapler, the angles anastomosed, and mesenteric defect approximated with some 0 Ethibond stitch and fibrin sealant. The new Loc limb was brought out through retrocolic tunnel. This was widened somewhat to ensure easy passage of the contents through the transverse colon mesentery. The open end of the esophagogastric junction was then used to place the anvil of a 28 mm EEA stapler. A large stapler was selected so as to minimize problems with stricturing at the subsequent anastomosis. The main body of the EEA stapler was then brought in through the now open end of the Loc limb, united with the anvil and fired, thus creating an esophagojejunostomy. Prior to removal of the stapler, double donuts of mucosa were noted within it and the anastomosis reinforced with some 3-0 Vicryl seromuscular stitch and fibrin sealant. At that point, the point where the Loc limb passed through the transverse mesocolon was affixed with some 3-0 Vicryl stitch, and the abdomen was then irrigated with antibiotic-containing saline solution. Two Yang-Jackson drains were then placed through stab wounds in the left upper quadrant, placed adjacent to the esophagojejunostomy, and the patient was felt to be at risk for significant additional adhesion formation involving the abdominal wall, as there was no mobilizable omentum to cover this area. Interceed mesh was then used to place behind the lower pelvis up along the abdominal wall to displace the small bowel and other viscera from those surfaces and limit recurrent adhesion formation. The midline fascia was then approximated with #2 Vicryl stitch. The skin and subcutaneous tissue were felt to be high risk for a wound infection if primary closure was undertaken. Therefore, the skin and subcutaneous tissue were packed open, drains affixed with some 3-0 Vicryl stitch, and patient was taken to the recovery room in satisfactory condition. Physician teaching assistant, Sharon Gamboa, played an essential role in assisting in this case, helping to position the patient, retract structures as needed, as well as suturing and cutting sutures when indicated. Her presence improved patient safety and decreased the operative time. Skinny Keyes MD /[id number]
--- NOTE | 2017-10-14 07:48 | DISCH ---
FINAL DIAGNOSES: 1. Gastric ulcer, refractory to medical management. 2. Extensive intraabdominal adhesions. 3. Foreshortened mesentery requiring revision of the previous jejunojejunostomy. 4. Anemia due to acute blood loss, as well as duodenal ulcer. 5. History of bipolar disorder. PROCEDURE: At the time of admission on 10/06/2017, exploratory laparotomy with lysis of adhesions and: 1. Total gastrectomy with Loc-en-Y reconstruction. 2. Small-bowel resection for revision of previous jejunojejunostomy. 3. Placement of Interceed mesh to prevent recurrent adhesion formation, and then on 10/08/2017 delayed primary closure of abdominal incision. HOSPITAL COURSE: This is a 52-year-old status post previous distal gastrectomy with Loc-en- Y reconstruction for severe duodenal ulcer disease. The patient, since that operation, has had persistent problems with ulcers, most recently bringing down her hemoglobin to 5 from that ulcer, with this being treated in [place]. The patient has been on a combination of Protonix, sucralfate, and misoprostol, all of which have been ineffective in controlling the ulcer disease. She, therefore, underwent a total gastrectomy on the date of admission, Loc- en-Y jejunojejunostomy needed to be revised as well, with a small bowel resection being accomplished in order to allow adequate Loc limb length and mobility up to the divided esophagogastric junction. Postoperatively, the patient did require some packed RBCs for a combination of anemia coming into the case, as well as some minor postoperative bleeding, (the latter never resulted in any significant hemodynamic changes). At the time of discharge, she will be sent home on a step 2 type gastric bypass diet. We will have her not start the vitamins until after the first appointment. She will continue her home medications, other than we will have her stop the Protonix, sucralfate, and misoprostol. She will be instructed to take Tylenol 650 mg q.4 hours p.r.n. pain and then a prescription of oxycodone 5-10 mg p.o. q.4 hours p.r.n. pain, #50. Followup with Dr. Keyes in [facility] on 10/15/2017 with dietary evaluation at that time as well.
== END 2017-10-11 11:25 | disposition home or self-care (01) | DRG 328 ==
LOC: UNDOADMIN 05:15 → JP.SDSSCHI 05:15 → JP.SDS 05:15 → EDSTATUS 09:00 → JP.SDSSCHI 13:10 → JP.2SS 13:10
PROVIDERS: ADMIT Surgery; ATTEND Surgery
PROC: 0DT60ZZ Resection of Stomach, Open Approach (ICD-10-PCS; principal; 2017-10-06)
PROC: 0DNU0ZZ Release Omentum, Open Approach (ICD-10-PCS; 2017-10-06)
PROC: 0DN80ZZ Release Small Intestine, Open Approach (ICD-10-PCS; 2017-10-06)
PROC: 0DNW0ZZ Release Peritoneum, Open Approach (ICD-10-PCS; 2017-10-06)
PROC: 0DBA0ZX Excision of Jejunum, Open Approach, Diagnostic (ICD-10-PCS; 2017-10-06)
PROC: 3E0T3BZ Introduction of Anesthetic Agent into Peripheral Nerves and Plexi, Percutaneous Approach (ICD-10-PCS; 2017-10-06)
PROC: 3E0M05Z Introduction of Adhesion Barrier into Peritoneal Cavity, Open Approach (ICD-10-PCS; 2017-10-06)
PROC: 30233N1 Transfusion of Nonautologous Red Blood Cells into Peripheral Vein, Percutaneous Approach (ICD-10-PCS; 2017-10-07)
PROC: 0WQF0ZZ Repair Abdominal Wall, Open Approach (ICD-10-PCS; 2017-10-08)
PROC: 30233N1 Transfusion of Nonautologous Red Blood Cells into Peripheral Vein, Percutaneous Approach (ICD-10-PCS; 2017-10-08)
DX: K25.4 Chronic or unspecified gastric ulcer with hemorrhage (principal); D50.0 Iron deficiency anemia secondary to blood loss (chronic); K66.8 Other specified disorders of peritoneum; K66.0 Peritoneal adhesions (postprocedural) (postinfection); Z48.1 Encounter for planned postprocedural wound closure; J44.9 Chronic obstructive pulmonary disease, unspecified; F31.9 Bipolar disorder, unspecified; Z98.84 Bariatric surgery status; Z98.0 Intestinal bypass and anastomosis status; Z88.5 Allergy status to narcotic agent; Z88.8 Allergy status to other drugs, medicaments and biological substances; Z91.048 Other nonmedicinal substance allergy status
CPT/HCPCS: 36415; 36430; 74240; 74240-26; 80053; 83735; 84100; 85027; 86850; 86900; 86901; 86920; 86922; 88305; 88307; 88342; 94640; 94640-76; 94664; 94762; A9270-GY; C9113; J0171; J0330; J0694; J1100; J1644; J1940; J2001; J2175; J2185; J2250; J2405; J2704; J2710; J2795; J3010; J3411; J3420; J7042; J7050; J7120; J7189; J7620; P9016; Q9967

== ENCOUNTER 2018-10-30 17:04 | Emergency (ER) | payer MEDICAID ==
[2018-10-30 17:19] VITALS: BP 131/95
--- NOTE | 2018-10-30 18:32 | EDM.PDOC ---
<OfficerArun - Last Filed: 10/30/18 18:28> ED HPI GENERAL MEDICAL PROBLEM - General Chief Complaint: Drug or Alcohol Abuse Stated Complaint: OPEN SORE Time Seen by Provider: 10/30/18 17:27 Source of Information: Reports: Patient, Family, Police, RN Notes Reviewed, Other (Home health care nurse) History Limitations: Reports: No Limitations - History of Present Illness INITIAL COMMENTS - FREE TEXT/NARRATIVE: 53-year-old female presents to emergency department today sent in by home health care nurse. She is unsure why she is in the emergency department I was able to communicate both with provider and care nurse she does have a known history of chronic alcoholism she is also using opiates , and TPN. Her primary care would like evaluation of alcohol or recreational drugs at this time the patient has no particular complaints - Related Data Allergies Allergy/AdvReac Type Severity Reaction Status Date / Time adhesive Allergy Rash Verified 10/30/18 17:23 codeine Allergy Other Verified 10/30/18 17:23 hydromorphone Allergy Itching Verified 10/30/18 17:23 latex Allergy Itching Verified 10/30/18 17:23 morphine Allergy Other Verified 10/30/18 17:23 tramadol Allergy Itching Verified 10/30/18 17:23 ENVIRONMENTAL Allergy Cannot Uncoded 10/30/18 17:23 Remember Home Meds: Home Meds Fluticasone Propionate [Flonase] 2 spray MEHUL DAILY 05/28/13 [History] Nitroglycerin [Nitrostat] 0.4 mg SL ASDIRECTED PRN 05/28/13 [History] tiZANidine HCl [Zanaflex] 4 mg PO BEDTIME 05/28/13 [History] Tiotropium [Spiriva HandiHaler] 1 puff INH DAILY 07/11/13 [History] Albuterol Sulfate [Proair Hfa] 2 puff INH Q4H PRN 05/09/14 [History] Budesonide/Formoterol [Symbicort 160-4.5 MCG] 2 puff INH BID 05/09/14 [History] Minocycline [Minocin] 50 mg PO BEDTIME 12/21/14 [History] Folic Acid 1 mg PO DAILY 07/19/15 [History] ClonazePAM [KlonoPIN] 0.5 mg PO BEDTIME 06/13/16 [History] oxyCODONE 10 mg PO Q4HR PRN #30 tablet 09/15/16 [Rx] Fexofenadine/Pseudoephedrine [Colette-D 24 Hour Tablet] 1 tab PO DAILY 01/14/17 [History] Prochlorperazine Maleate [Compazine] 10 mg PO Q6HR PRN 02/26/17 [History] Multivitamin [Flintstones] 1 tab PO DAILY 10/06/17 [History] Propranolol [Inderal LA] 120 mg PO BEDTIME 10/06/17 [History] Triamcinolone Acetonide [Triamcinolone Acetonide 0.1% Oint] 1 applic TOP TID 03/17 [History] Vitamin B Complex [B Complex] 1 tab PO DAILY 10/06/17 [History] Acetaminophen [Tylenol] 325 mg PO Q6H PRN #1 bottle 10/11/17 [Rx] Furosemide [Lasix] 20 mg PO DAILY #5 tab 10/11/17 [Rx] Potassium Chloride 20 meq PO DAILY #5 tablet.er 10/11/17 [Rx] Zinc Gluconate-Zinc Picolinate [Zinc] 30 mg PO DAILY 02/20/18 [History] Ondansetron [Zofran ODT] 4 mg SL Q4H PRN 04/15/18 [History] Dronabinol [Marinol] 2.5 mg PO BID@1130,1700 #60 cap 04/20/18 [Rx] Megestrol [Megace 40 MG/ML Susp] 800 mg PO DAILY@0800 30 Days #600 ml 04/20/18 [ Rx] Past Medical History HEENT History: Reports: Allergic Rhinitis, Impaired Vision, Sinusitis Other HEENT History: glasses Cardiovascular History: Reports: Aneurysm, Angina, Hypertension, IN, SOB on Exertion Other Cardiovascular History: joint swelling Respiratory History: Reports: Asthma, COPD, Intubation, Previous, SOB Gastrointestinal History: Reports: Gastritis, GERD, GI Bleed, Hemorrhoids, Hiatal Hernia, Inflammatory Bowel Disease Other Gastrointestinal History: esophageal stricture and trouble with spasm Genitourinary History: Reports: None TIMBER APPRAISER History: Reports: , Prolapsed Uterus, Spontaneous Musculoskeletal History: Reports: Back Pain, Chronic, Fracture, Fibromyalgia, Neck Pain, Chronic, Osteoarthritis, RA, Other (See Below) Other Musculoskeletal History: cyst left elbow, scoliosis, Degenerative joint disease Neurological History: Reports: Headaches, Chronic, Migraines, Vertigo Psychiatric History: Reports: Anxiety, Depression, Psych Hospitalization(s), Other (See Below) Other Psychiatric History: Dehydration Endocrine/Metabolic History: Reports: Other (See Below) Other Endocrine/Metabolic History: tested and went normal 4-5 years ago went normal so stopped thyroid medications Hematologic History: Reports: Anemia, B12 Deficiency, Blood Transfusion(s), Folic Acid, Iron Deficiency Oncologic (Cancer) History: Reports: None Dermatologic History: Reports: Eczema, Other (See Below) Other Dermatologic History: left eye rash of unknown origin - Infectious Disease History Infectious Disease History: Reports: C-Difficile, Measles Other Infectious Disease History: anaplasmosis - Past Surgical History Head Surgeries/Procedures: Reports: None HEENT Surgical History: Reports: Oral Surgery Cardiovascular Surgical History: Reports: None Respiratory Surgical History: Reports: None GI Surgical History: Reports: Appendectomy, Bariatric Procedure, Cholecystectomy , Colonoscopy, EGD, Esophageal Dilatation, Hernia Repair/Other, Kathe Fundoplication, Other (See Below) Other GI Surgeries/Procedures: feeding tube Female Surgical History: Reports: Breast Implant, Cystectomy, D&C, Hysterectomy, Oophorectomy, Tubal Ligation Endocrine Surgical History: Reports: None Neurological Surgical History: Reports: None Musculoskeletal Surgical History: Reports: Other (See Below) Other Musculoskeletal Surgeries/Procedures:: left elbow Oncologic Surgical History: Reports: Biopsy of Breast, Other (See Below) Other Oncologic Surgeries/Procedures: left elbow bx = benign Dermatological Surgical History: Reports: Plastic Surgical Reconstruction/Repair Social & Family History - Family History Family Medical History: Noncontributory Cardiac: Reports: Aneurysm Respiratory: Reports: Asthma, COPD GI: Reports: GERD, GI bleed, Irritable Bowel Syndrome, Other (See Below) Other GI Family History: Chrons OBGYN: Reports: Other (See Below) Other OBGYN Family History: Hysterectomyh Musculoskeletal: Reports: Back pain, Chronic, Fibromyalgia Neurological: Reports: Cerebral Aneurysms Psychiatric: Reports: Anxiety, Depression Hematologic: Reports: Bleeding Disorder Oncologic: Reports: Breast - Tobacco Use Smoking Status *Q: Never Smoker - Caffeine Use Caffeine Use: Reports: None ED ROS GENERAL - Review of Systems Review Of Systems: See Below Constitutional: Reports: No Symptoms HEENT: Reports: No Symptoms Respiratory: Reports: No Symptoms Cardiovascular: Reports: No Symptoms GI/Abdominal: Reports: No Symptoms : Reports: No Symptoms Musculoskeletal: Reports: No Symptoms Skin: Reports: No Symptoms Neurological: Reports: No Symptoms ED EXAM, GENERAL - Physical Exam Exam: See Below Exam Limited By: No Limitations General Appearance: Alert, WD/WN, No Apparent Distress Eye Exam: Bilateral Eye: Normal Inspection Throat/Mouth: No Airway Compromise Respiratory/Chest: No Respiratory Distress Course - Vital Signs Last Recorded V/S: Last Vital Signs Temp 35.1 C L 10/30/18 17:35 Pulse 62 10/30/18 17:35 Resp 17 10/30/18 17:35 BP 131/95 H 10/30/18 17:35 Pulse Ox 100 10/30/18 17:35 - Orders/Labs/Meds Orders: Active Orders 24 hr Category Date Time Status COMPREHENSIVE METABOLIC PN,CMP [CHEM] Stat Lab 10/30/18 18:25 Received ETHANOL BLOOD MEDICAL [CHEM] Stat Lab 10/30/18 18:25 Received Labs: Laboratory Tests 10/30/18 10/30/18 10/30/18 Range/Units 18:07 18:24 18:25 WBC 6.5 (4.5-11.0) K/uL RBC 4.01 (3.30-5.50) M/uL Hgb 12.4 D (12.0-15.0) g/dL Hct 38.3 (36.0-48.0) % MCV 96 (80-98) fL MCH 31 (27-31) pg MCHC 32 (32-36) % Plt Count 217 (150-400) K/uL Neut % (Auto) 62 (36-66) % Lymph % (Auto) 25 (24-44) % [place] % (Auto) 11 H (2-6) % Eos % (Auto) 1 L (2-4) % Baso % (Auto) 1 (0-1) % Urine Color Yellow Urine Appearance Clear Urine pH 9.0 H (4.5-8.0) Ur Specific [place] 1.000 L (1.008-1.030) Urine Protein Negative (NEGATIVE) mg/dL Urine Glucose (UA) Normal (NEGATIVE) mg/dL Urine Ketones Negative (NEGATIVE) mg/dL Urine Occult Blood Negative (NEGATIVE) Urine Nitrite Negative (NEGATIVE) Urine Bilirubin Negative (NEGATIVE) Urine Urobilinogen Normal (NORMAL) mg/dL Ur Leukocyte Esterase Negative (NEGATIVE) Urine RBC Not seen (0-5) Urine WBC Not seen (0-5) Ur Epithelial Cells Few Amorphous Sediment Not seen Urine Bacteria Not seen Urine Mucus Not seen Urine Opiates Screen Negative (NEGATIVE) Ur Oxycodone Screen Presumptive positive H (NEGATIVE) Urine Methadone Screen Negative (NEGATIVE) Ur Propoxyphene Screen Negative (NEGATIVE) Ur Barbiturates Screen Negative (NEGATIVE) Ur Tricyclics Screen Negative (NEGATIVE) Ur Phencyclidine Scrn Negative (NEGATIVE) Ur Amphetamine Screen Negative (NEGATIVE) U Methamphetamines Scrn Negative (NEGATIVE) Urine MDMA Screen Negative (NEGATIVE) U Benzodiazepines Scrn Negative (NEGATIVE) U Cocaine Metab Screen Negative (NEGATIVE) U Marijuana (THC) Screen Negative (NEGATIVE) Departure - Departure Disposition: Home, Self-Care 01 Clinical Impression: Alcohol abuse - Discharge Information Referrals: Obinna Clarke MD [Primary Care Provider] - Forms: ED Department Discharge - My Orders Last 24 Hours: My Active Orders 10/30/18 18:25 COMPREHENSIVE METABOLIC PN,CMP [CHEM] Stat ETHANOL BLOOD MEDICAL [CHEM] Stat - Assessment/Plan Last 24 Hours: My Active Orders 10/30/18 18:25 COMPREHENSIVE METABOLIC PN,CMP [CHEM] Stat ETHANOL BLOOD MEDICAL [CHEM] Stat <Howard,Son T - Last Filed: 10/30/18 19:19> ED EXAM, GENERAL - Physical Exam Exam: See Below Exam Limited By: No Limitations Course - Vital Signs Text/Narrative:: case was reviewed briefly with patient's medical team. It was decided to look at screening labs and make sure there is nothing untoward going on metabolically. If things look fine, no new medications will be added and the patient will follow up as an outpatient. Departure - Departure Time of Disposition: 19:16 Condition: Good - Assessment/Plan Assessment:: Current alcohol use. Long-term pain medication use. TPN nutritional source patient. Plan: Recommend restarting TPN. Recommend not using alcohol as it will affect your overall metabolism and appetite. Recheck with Dr. Keyes's team next week as discussed. Return to ER if feeling worse in anyway.
== END 2018-10-30 19:28 | disposition home or self-care (01) ==
LOC: JP.ED 17:04
DX: F10.10 Alcohol abuse, uncomplicated (principal); Z79.899 Other long term (current) drug therapy; J45.909 Unspecified asthma, uncomplicated; Z91.040 Latex allergy status; Z88.5 Allergy status to narcotic agent; Z88.6 Allergy status to analgesic agent; Z91.09 Other allergy status, other than to drugs and biological substances; Z88.8 Allergy status to other drugs, medicaments and biological substances
CPT/HCPCS: 36415; 80053; 80305; 81001; 85025; 99283; G0480